=== PATIENT | female | born 1955 | race Caucasian/White ===

== ENCOUNTER 2018-11-30 14:26 | Inpatient (IN) | payer OTHER, SELFPAY ==
[2018-11-30] MEDS ORDERED: NA CHLORIDE 0.9% 0 ML ONE (17:10)
[2018-11-30] MEDS ORDERED: ONDANSETRON 4 MG/2 ML VIAL ONE (17:10)
[2018-11-30 17:27] LABS: Absolute Lymphocytes (CBC) 1.6 K/uL (0.7-4.9); Basophils % 0.9 % (0-1.3); Eosinophils % 0.1 % (0-4.4); Hematocrit 37.6 % (36.0-45.0); Lymphocytes % 9.3 % (15.3-44.8); MPV 9.4 fL (7.6-11.3); Monocytes % 1.8 % (3.3-12.3); RBC Red Blood Cell Count 4.09 M/uL (3.86-4.86)
[2018-11-30 18:00] LABS: Albumin 3.6 g/dL (3.4-5.0); Bilirubin Direct 0.1 mg/dL (0-0.2); Bilirubin Total 0.3 mg/dL (0.2-1.0); Protein, Total 7.8 g/dL (6.4-8.2)
[2018-11-30 18:04] LABS: Potassium 6.8 mmol/L (3.5-5.1)
--- NOTE | 2018-11-30 18:28 | EDPHYS ---
Physician Documentation [facility] Name: Tawana Wells Age: 63 yrs Sex: Female : 1955 Arrival Date: 11/30/2018 Time: 14:28 Bed 23 Private MD: ED Physician Edgar Andrew HPI: 11/30 18:18 This 63 yrs old Female presents to ER via Ambulatory with complaints of gs Vomiting, Fall Injury. 18:18 The patient presents to the emergency department with nausea, vomiting. gs 18:18 Onset: The symptoms/episode began/occurred today. Possible causes: unknown. Associated gs signs and symptoms: Pertinent positives: abdominal pain, syncope. Severity of symptoms: At their worst the symptoms were incapacitating in the emergency department the symptoms are unchanged. The patient has experienced similar episodes in the past, a few times. The patient has not recently seen a physician. Historical: - Allergies: 14:32 No Known Allergies; hj - PMHx: 14:32 Hypertension; Diabetes - NIDDM; Hyperlipidemia; hj - PSHx: 14:32 lumbar fusion; shoulder; hj - Immunization history:: Adult Immunizations up to date, Flu vaccine is not up to date. - Social history:: The patient lives at home, Smoking status: Patient/guardian denies using tobacco. - Ebola Screening: : Patient negative for fever greater than or equal to 101.5 degrees Fahrenheit, and additional compatible Ebola Virus Disease symptoms Patient denies exposure to infectious person Patient denies travel to an Ebola-affected area in the 21 days before illness onset No symptoms or risks identified at this time. ROS: 18:18 All other systems are negative. gs Exam: 18:23 Head/Face: Normocephalic, atraumatic. Eyes: Pupils equal round and reactive to light, gs extra-ocular motions intact. Lids and lashes normal. Conjunctiva and sclera are non-icteric and not injected. Cornea within normal limits. Periorbital areas with no swelling, redness, or edema. ENT: Nares patent. No nasal discharge, no septal abnormalities noted. Tympanic membranes are normal and external auditory canals are clear. Oropharynx with no redness, swelling, or masses, exudates, or evidence of obstruction, uvula midline. Mucous membranes moist. Neck: Trachea midline, no thyromegaly or masses palpated, and no cervical lymphadenopathy. Supple, full range of motion without nuchal rigidity, or vertebral point tenderness. No Meningismus. Chest/axilla: Normal chest wall appearance and motion. Nontender with no deformity. No lesions are appreciated. 18:23 Respiratory: Lungs have equal breath sounds bilaterally, clear to auscultation and percussion. No rales, rhonchi or wheezes noted. No increased work of breathing, no retractions or nasal flaring. Back: No spinal tenderness. No costovertebral tenderness. Full range of motion. Skin: Warm, dry with normal turgor. Normal color with no rashes, no lesions, and no evidence of cellulitis. MS/ Extremity: Pulses equal, no cyanosis. Neurovascular intact. Full, normal range of motion. Neuro: Awake and alert, GCS 15, oriented to person, place, time, and situation. Cranial nerves II-XII grossly intact. Motor strength 5/5 in all extremities. Sensory grossly intact. Cerebellar exam normal. Normal gait. 18:23 Constitutional: The patient appears alert, awake, uncomfortable. 18:23 Cardiovascular: Rate: tachycardic, Rhythm: regular, Pulses: no pulse deficits are appreciated. 18:23 ECG was reviewed by the Attending Physician. 18:23 Abdomen/GI: Palpation: moderate abdominal tenderness, in all quadrants. Vital Signs: 14:32 BP 144 / 77; Pulse 99; Resp 18; Temp 97.8(O); Pulse Ox 99% on R/A; Weight 87.09 kg; hj Height 5 ft. 9 in. (175.26 cm); Pain 10/10; 15:38 BP 156 / 80; Pulse 90; Resp 19; Pulse Ox 100% on R/A; ca1 16:30 BP 122 / 49; Pulse 94; Resp 20; Temp 98(O); Pulse Ox 99% on R/A; ca1 17:30 BP 156 / 68; Pulse 95; Resp 21 S; Temp 98.1(O); Pulse Ox 100% on R/A; ca1 18:33 BP 129 / 59; Pulse 98; Resp 21 S; Temp 98.1(O); Pulse Ox 99% on R/A; ca1 19:30 BP 129 / 57; Pulse 99; Resp 21 S; Temp 98(O); Pulse Ox 96% on R/A; ca1 19:55 BP 137 / 54; Pulse 97; Resp 21 S; Temp 98(O); Pulse Ox 97% on R/A; ca1 20:45 BP 124 / 58; Pulse 95; Resp 20 S; Pulse Ox 99% on R/A; ca1 21:45 BP 145 / 60; Pulse 92; Resp 25 S; Pulse Ox 98% on R/A; ca1 22:15 BP 146 / 100; Pulse 97; Resp 28; Pulse Ox 99% on R/A; ca1 22:45 BP 156 / 64; Pulse 98; Resp 28 S; Pulse Ox 100% on Non-rebreather mask; ca1 23:25 BP 118 / 66; Pulse 98; Resp 23; Pulse Ox 96% on 2 lpm NC; ca1 23:45 BP 97 / 52; Pulse 102; Resp 25 S; Pulse Ox 96% on 2 lpm NC; ca1 12/01 00:05 BP 83 / 83; Pulse 101; Resp 25 S; Pulse Ox 96% on 2 lpm NC; ca1 00:33 BP 114 / 56; Pulse 105; Resp 24 S; Temp 98.2(O); Pulse Ox 95% on 2 lpm NC; ca1 11/30 14:32 Body Mass Index 28.35 (87.09 kg, 175.26 cm) hj MDM: 11/30 16:12 Patient medically screened. 18:23 Differential diagnosis: gastritis, viral gastroenteritis, gastroenteritis, dehydration. gs Data reviewed: vital signs, nurses notes. Counseling: I had a detailed discussion with the patient and/or guardian regarding: the historical points, exam findings, and any diagnostic results supporting the discharge/admit diagnosis, the need for further work-up and treatment in the hospital. Response to treatment: the patient's symptoms have mildly improved after treatment, and as a result, I will admit patient. 18:37 Physician consultation: noraphilip wants hco3 drip admit to icu repeat labs possible gs dialysis. 11/30 16:44 Order name: Basic Metabolic Panel 11/30 16:44 Order name: CBC with Diff 11/30 16:44 Order name: Hepatic Function 11/30 16:44 Order name: Lipase 11/30 16:44 Order name: Urine Microscopic Only 11/30 17:36 Order name: CBC with Automated Diff; Complete Time: 20:55 EDMS 11/30 18:04 Order name: Basic Metabolic Panel; Complete Time: 18:07 EDVT 11/30 18:04 Order name: Liver (Hepatic) Function; Complete Time: 18:07 EDVT 11/30 18:04 Order name: Lipase; Complete Time: 18:07 EDVT 11/30 18:17 Order name: ABG 11/30 19:21 Order name: Urine Dipstick--Ancillary (enter results) co 11/30 19:36 Order name: CBC Smear Scan; Complete Time: 20:55 EDVT 11/30 20:49 Order name: Urine Microscopic Only; Complete Time: 20:55 EDVT 11/30 21:24 Order name: Chem 7 monalisa 11/30 14:55 Order name: CT Head C Spine [facility] 11/30 14:55 Order name: CT Abd/Pelvis - Without Cont (PO Contrast Only) [facility] 11/30 19:48 Order name: CT; Complete Time: 20:55 EDVT 11/30 19:55 Order name: CT; Complete Time: 20:55 [facility] 11/30 19:59 Order name: US; Complete Time: 20:55 EDVT 11/30 21:56 Order name: Chest Single View XRAY rr5 11/30 21:56 Order name: BMP rr5 11/30 23:01 Order name: Basic Metabolic Panel [facility] 11/30 16:44 Order name: IV Saline Lock; Complete Time: 17:13 11/30 16:44 Order name: Labs collected and sent; Complete Time: 17:13 11/30 16:44 Order name: Urine Dipstick-Ancillary (obtain specimen); Complete Time: 20:20 11/30 18:08 Order name: EKG; Complete Time: 05:00 11/30 18:08 Order name: EKG - Nurse/Tech; Complete Time: 18:23 11/30 18:31 Order name: Flores; Complete Time: 19:04 EC:23 Rate is 94 beats/min. Rhythm is regular. MS interval is normal. QRS interval is normal. gs QT interval is normal. T waves are Peaked. Clinical impression: Abnormal EKG without significant change. Interpreted by me. Administered Medications: 17:04 Drug: Zofran 4 mg Route: IVP; Site: right antecubital; ca1 18:15 Follow up: Response: No adverse reaction ca1 17:04 Drug: NS 0.9% 1000 ml Route: IV; Rate: 1 bolus; Site: right antecubital; ca1 18:15 Follow up: Response: No adverse reaction; IV Status: Completed infusion ca1 18:30 Drug: Albuterol 2.5 mg Route: Inhalation; ca1 18:40 Drug: D50W 50 ml Route: IVP; Site: right antecubital; ca1 19:50 Follow up: Response: No adverse reaction ca1 18:48 Drug: Insulin Regular Human 10 units {Co-Signature: sg (Nba Fiore RN).} Route: IVP; ca1 Site: right antecubital; 18:50 Follow up: Response: No adverse reaction ca1 18:50 Drug: D5W 1000 ml, Sodium Bicarbonate 150 mEq Route: IV; Rate: 150 ml/hr; Site: right ca1 antecubital; 19:08 Drug: Kayexalate 30 grams Route: PO; ca1 04 00:10 Follow up: Response: No adverse reaction ca1 11/30 22:30 Drug: Rocephin - (cefTRIAXone) 1 grams Route: IVPB; Infused Over: 30 mins; Site: right ca1 antecubital; 22:31 Follow up: IV Status: IVP per pharmacy protocol ca1 22:40 Drug: Kayexalate 30 grams Route: PO; ca1 04 00:10 Follow up: Response: No adverse reaction ca1 11/30 23:04 Drug: Flagyl 500 mg Volume: 100 ml; Route: IVPB; Rate: 200 ml/hr; Infused Over: 30 ca1 mins; Site: left forearm; 23:36 Follow up: IV Status: Completed infusion ca1 23:30 Drug: D50W 50 ml Route: IVP; Site: right antecubital; ca1 04 01:20 Follow up: Response: No adverse reaction ca1 11/30 23:31 Drug: Insulin Regular Human 6 units {Co-Signature: bb (Thelma Figueroa RN).} Route: IVP; ca1 Site: right antecubital; 12/01 00:15 Follow up: Response: No adverse reaction ca1 11/30 23:36 Drug: Calcium Gluconate 1 grams Route: IVPB; Infused Over: 30 mins; Site: left forearm; ca1 23:42 Drug: Sodium Bicarbonate 50 mEq Route: IVP; Site: right antecubital; ca1 06/04 00:25 Follow up: Response: No adverse reaction ca1 00:15 Drug: Calcium Chloride 1 grams Route: IVP; Site: left forearm; ca1 00:20 Follow up: Response: No adverse reaction ca1 01:15 CANCELLED (Duplicate Order): Insulin Regular Human 5 units IVP once ca1 01:15 CANCELLED (Duplicate Order): Sodium Bicarbonate 1 amp IVP once; (50 mL); equals 50 mEq ca1 01:16 CANCELLED (Duplicate Order): D50W 50 ml IVP once; (1 amp) ca1 01:16 CANCELLED (Duplicate Order): Calcium Chloride 1 grams IVP once ca1 Disposition: 11/30/18 18:27 Hospitalization ordered by Shameka Richmond for Inpatient Admission. Preliminary diagnosis are Acute kidney failure, Elevated white blood cell count, Abdominal tenderness, Diverticular disease of intestine, Diverticulitis of large intestine without perforation or abscess without bleeding. - Bed requested for Intensive Care Unit. - Status is Inpatient Admission. mg2 - Condition is Stable. - Problem is new. - Symptoms have improved. UTI on Admission? No Critical care time excluding procedures: 11/30 18:23 Critical care time: Bedside Care: 10 minutes, Consultation: 10 minutes, Family gs Intervention: 10 minutes. Total time: 30 minutes Signatures: Dispatcher [employer] EDMS Lalo Contreras MD MD cha Joaquin, Henry, RN SATISH Clara Morrissey RN RN Edgar Andrew MD MD Ralph Parks RN RN mg2 Whit Covington RN RN ca1 Nba Fiore RN sg Thelma Figureoa RN bb Corrections: (The following items were deleted from the chart) 18:33 18:27 Hospitalization Ordered by Shameka Richmond MD for Inpatient Admission. Preliminary gs diagnosis is Acute kidney failure. Bed requested for Telemetry/MedSurg (Inpatient). Status is Inpatient Admission. Condition is Stable. Problem is new. Symptoms have improved. UTI on Admission? No. gs 19:59 18:33 11/30/2018 18:27 Hospitalization Ordered by Shameka Richmond MD for Inpatient cg Admission. Preliminary diagnosis is Acute kidney failure. Bed requested for Intensive Care Unit. Status is Inpatient Admission. Condition is Stable. Problem is new. Symptoms have improved. UTI on Admission? No. gs 20:58 19:59 11/30/2018 18:27 Hospitalization Ordered by Shameka Richmond MD for Inpatient monalisa Admission. Preliminary diagnosis is Acute kidney failure. Bed requested for Intensive Care Unit. Status is Inpatient Admission. Condition is Stable. Problem is new. Symptoms have improved. UTI on Admission? No. cg 12/01 01:13 11/30 20:58 11/30/2018 18:27 Hospitalization Ordered by Shameka Richmond MD for Inpatient mg2 Admission. Preliminary diagnosis is Acute kidney failure; Elevated white blood cell count; Abdominal tenderness; Diverticular disease of intestine; Diverticulitis of large intestine without perforation or abscess without bleeding. Bed requested for Intensive Care Unit. Status is Inpatient Admission. Condition is Stable. Problem is new. Symptoms have improved. UTI on Admission? No. monalisa
--- NOTE | 2018-11-30 18:28 | ER ---
Nurse's Notes [facility] [place] Name: Tawana Wells Age: 63 yrs Sex: Female : 1955 Arrival Date: 11/30/2018 Time: 14:28 Bed 23 Private MD: Diagnosis: Acute kidney failure;Elevated white blood cell count;Abdominal tenderness;Diverticular disease of intestine;Diverticulitis of large intestine without perforation or abscess without bleeding Presentation: 11/30 14:29 Presenting complaint: Patient states: i started vomiting today and started having abd hj pain on my L lower abd, on my way to the bathroom i fell and hurt the L side of my face and passed out, 2x; denies fever; denies taking blood thinners;. Transition of care: patient was not received from another setting of care. Onset of symptoms was November 30, 2018. Risk Assessment: Do you want to hurt yourself or someone else? Patient reports no desire to harm self or others. Initial Sepsis Screen: Does the patient meet any 2 criteria? No. Patient's initial sepsis screen is negative. Does the patient have a suspected source of infection? No. Patient's initial sepsis screen is negative. Care prior to arrival: None. 14:29 Method Of Arrival: Ambulatory 14:29 Acuity: RAYMOND 3 hj Historical: - Allergies: 14:32 No Known Allergies; hj - PMHx: 14:32 Hypertension; Diabetes - NIDDM; Hyperlipidemia; hj - PSHx: 14:32 lumbar fusion; shoulder; hj - Immunization history:: Adult Immunizations up to date, Flu vaccine is not up to date. - Social history:: The patient lives at home, Smoking status: Patient/guardian denies using tobacco. - Ebola Screening: : Patient negative for fever greater than or equal to 101.5 degrees Fahrenheit, and additional compatible Ebola Virus Disease symptoms Patient denies exposure to infectious person Patient denies travel to an Ebola-affected area in the 21 days before illness onset No symptoms or risks identified at this time. Screenin:40 Abuse screen: Denies threats or abuse. Denies injuries from another. Nutritional ca1 screening: No deficits noted. Tuberculosis screening: No symptoms or risk factors identified. Fall Risk None identified. Assessment: 15:40 General: Appears in no apparent distress. uncomfortable, ill, Behavior is calm, ca1 cooperative, appropriate for age. Pain: Complains of pain in face Pain does not radiate. Pain currently is 6 out of 10 on a pain scale. Pain began 1 day ago. Neuro: Level of Consciousness is awake, alert, obeys commands, Oriented to person, place, time, situation, News Library Director are equal bilaterally Moves all extremities. Speech is normal, Facial symmetry appears normal. Cardiovascular: Heart tones S1 S2 present Capillary refill < 3 seconds Patient's skin is warm and dry. Respiratory: Airway is patent Respiratory effort is even, unlabored, Respiratory pattern is regular, symmetrical, Breath sounds are clear bilaterally. GI: Abdomen is round non-distended, Pt is actively vomiting undigested food, Bowel sounds present X 4 quads. Abd is soft and non tender X 4 quads. Reports vomiting, since yesterday. 15:40 : No deficits noted. No signs and/or symptoms were reported regarding the ca1 genitourinary system. EENT: No deficits noted. No signs and/or symptoms were reported regarding the EENT system. Derm: Skin is intact, is healthy with good turgor, Skin is diaphoretic, Skin is pink, warm \T\ dry. Musculoskeletal: Circulation, motion, and sensation intact. Capillary refill < 3 seconds, Range of motion: intact in all extremities. 16:39 Reassessment: Patient appears in no apparent distress at this time. Patient and/or ca1 family updated on plan of care and expected duration. Pain level reassessed. Patient is alert, oriented x 3, equal unlabored respirations, skin warm/dry/pink. 17:28 Reassessment: Patient appears in no apparent distress at this time. Patient and/or ca1 family updated on plan of care and expected duration. Pain level reassessed. Patient is alert, oriented x 3, equal unlabored respirations, skin warm/dry/pink. 18:31 Reassessment: Patient appears in no apparent distress at this time. Patient is alert, ca1 oriented x 3, equal unlabored respirations, skin warm/dry/pink. 19:29 Reassessment: Patient appears in no apparent distress at this time. Patient and/or ca1 family updated on plan of care and expected duration. Pain level reassessed. Patient is alert, oriented x 3, equal unlabored respirations, skin warm/dry/pink. 20:31 Reassessment: Patient appears in no apparent distress at this time. Patient is alert, ca1 oriented x 3, equal unlabored respirations, skin warm/dry/pink. For Central Line Insertion. 21:28 Reassessment: Patient appears in no apparent distress at this time. Patient is alert, ca1 oriented x 3, equal unlabored respirations, skin warm/dry/pink. 22:46 Reassessment: Patient appears in no apparent distress at this time. Patient is alert, ca1 oriented x 3, equal unlabored respirations, skin warm/dry/pink. 23:01 Reassessment: [place] of laboratory called for critical laboratory CO2-7, K 7.1, rr5 creatinine 11.6. provider aware. 23:25 Reassessment: Called Dr. Lorenzo for Critical Labs. VO D50W and 6 units insulin. 1 amp ca1 Bicarbonate and 1 amp Ca Gluconate. Reassessment: Patient appears in no apparent distress at this time. Patient is alert, oriented x 3, equal unlabored respirations, skin warm/dry/pink. 23:42 Reassessment: RT for ABG at bedside. Spoke to Dr. Lorenzo to clarify previous VO. Informed ca1 Dr. Lorenzo that I just started Ca Gluconate per Dr. Contreras's orders in [facility]. He said to just give Na Bicarb 1 amp. 12/01 00:10 Reassessment: Informed Dr. Lorenzo that Bp dropped 83/53. VO of Ca Chloride 1gm and ca1 Levophed Drip. 00:10 Reassessment: Patient appears in no apparent distress at this time. Patient is alert, ca1 oriented x 3, equal unlabored respirations, skin warm/dry/pink. 00:15 Reassessment: Patient appears in no apparent distress at this time. Called report to [facility] Brooke Melton RN. Informed her abour Joelle and meds given. Asked . Brooke if they can start Levophed Drip at ICU. Lates BP 114/54. She said Yes. Vital Signs: 11/30 14:32 BP 144 / 77; Pulse 99; Resp 18; Temp 97.8(O); Pulse Ox 99% on R/A; Weight 87.09 kg; hj Height 5 ft. 9 in. (175.26 cm); Pain 10/10; 15:38 BP 156 / 80; Pulse 90; Resp 19; Pulse Ox 100% on R/A; ca1 16:30 BP 122 / 49; Pulse 94; Resp 20; Temp 98(O); Pulse Ox 99% on R/A; ca1 17:30 BP 156 / 68; Pulse 95; Resp 21 S; Temp 98.1(O); Pulse Ox 100% on R/A; ca1 18:33 BP 129 / 59; Pulse 98; Resp 21 S; Temp 98.1(O); Pulse Ox 99% on R/A; ca1 19:30 BP 129 / 57; Pulse 99; Resp 21 S; Temp 98(O); Pulse Ox 96% on R/A; ca1 19:55 BP 137 / 54; Pulse 97; Resp 21 S; Temp 98(O); Pulse Ox 97% on R/A; ca1 20:45 BP 124 / 58; Pulse 95; Resp 20 S; Pulse Ox 99% on R/A; ca1 21:45 BP 145 / 60; Pulse 92; Resp 25 S; Pulse Ox 98% on R/A; ca1 22:15 BP 146 / 100; Pulse 97; Resp 28; Pulse Ox 99% on R/A; ca1 22:45 BP 156 / 64; Pulse 98; Resp 28 S; Pulse Ox 100% on Non-rebreather mask; ca1 23:25 BP 118 / 66; Pulse 98; Resp 23; Pulse Ox 96% on 2 lpm NC; ca1 23:45 BP 97 / 52; Pulse 102; Resp 25 S; Pulse Ox 96% on 2 lpm NC; ca1 12/01 00:05 BP 83 / 83; Pulse 101; Resp 25 S; Pulse Ox 96% on 2 lpm NC; ca1 00:33 BP 114 / 56; Pulse 105; Resp 24 S; Temp 98.2(O); Pulse Ox 95% on 2 lpm NC; ca1 11/30 14:32 Body Mass Index 28.35 (87.09 kg, 175.26 cm) ED Course: 11/30 14:28 Patient arrived in ED. hj 14:31 Triage completed. hj 14:32 Arm band placed on right wrist. hj 15:40 Patient has correct armband on for positive identification. Placed in gown. Bed in low ca1 position. Call light in reach. Side rails up X2. emd special education teacher on. Pulse ox on. NIBP on. Warm blanket given. 15:45 Edgar Andrew MD is Attending Physician. gs 15:49 Whit Covington RN is Primary Nurse. ca1 17:04 No provider procedures requiring assistance completed. Inserted saline lock: 20 gauge ca1 in right antecubital area, using aseptic technique. Blood collected. 18:26 Shameka Richmond MD is Hospitalizing Provider. gs 19:09 Flores cath inserted, using sterile technique, 18 Fr., by hi, balloon inflated, to ca1 gravity drainage, clamped. urine specimen collected. returned clear yellow urine. Patient tolerated well. 19:49 Ultrasound completed. hr 22:00 Missed attempt(s): 20 gauge in left antecubital area. Bleeding controlled, band aid ca1 applied, catheter tip intact. 22:15 Assisted provider with central line placement. Set up central line tray. Double lumen ca1 lined placed in left subclavian. Line placed by Esau Kohli MD Placement verified by CXR, blood return, Dressed with 4X4s, Tegaderm, Blood was collected. Patient tolerated well. Before procedure, did Practitioner(s) obtain informed consent? Yes. Patient \T\ family education about procedure, CLABSI prevention and S/S of infection? Yes. Time-out/Briefing performed prior to start of procedure? Yes. Was handwashing/sanitizing done immediately prior to procedure? Yes. Was patient positioned to in a way to prevent air embolism? Yes. Was procedure site sterilized? Yes, with chlorhexidine. Was the site allowed to dry? Yes. Was local anesthetic and/or sedation utilized? Yes. During the procedure, did the Practitioner(s) maintain a sterile field? Yes. Were unused ports clamped during insertion? Yes. Was a 2nd qualified MD obtained after 3 unsuccessful insertion attempts? No. Was blood aspirated from each lumen? Yes. After the procedure, did the Practitioner(s) clean the site and apply a sterile dressing? Yes. 23:16 Inserted saline lock: 22 gauge in left hand, using aseptic technique. mg2 12/01 00:15 Patient admitted, IV remains in place. ca1 Administered Medications: 11/30 17:04 Drug: Zofran 4 mg Route: IVP; Site: right antecubital; ca1 18:15 Follow up: Response: No adverse reaction ca1 17:04 Drug: NS 0.9% 1000 ml Route: IV; Rate: 1 bolus; Site: right antecubital; ca1 18:15 Follow up: Response: No adverse reaction; IV Status: Completed infusion ca1 18:30 Drug: Albuterol 2.5 mg Route: Inhalation; ca1 18:40 Drug: D50W 50 ml Route: IVP; Site: right antecubital; ca1 19:50 Follow up: Response: No adverse reaction ca1 18:48 Drug: Insulin Regular Human 10 units {Co-Signature: sg (Nba Fiore RN).} Route: IVP; ca1 Site: right antecubital; 18:50 Follow up: Response: No adverse reaction ca1 18:50 Drug: D5W 1000 ml, Sodium Bicarbonate 150 mEq Route: IV; Rate: 150 ml/hr; Site: right ca1 antecubital; 19:08 Drug: Kayexalate 30 grams Route: PO; ca1 04 00:10 Follow up: Response: No adverse reaction ca1 03 22:30 Drug: Rocephin - (cefTRIAXone) 1 grams Route: IVPB; Infused Over: 30 mins; Site: right ca1 antecubital; 22:31 Follow up: IV Status: IVP per pharmacy protocol ca1 22:40 Drug: Kayexalate 30 grams Route: PO; ca1 04 00:10 Follow up: Response: No adverse reaction ca1 11/30 23:04 Drug: Flagyl 500 mg Volume: 100 ml; Route: IVPB; Rate: 200 ml/hr; Infused Over: 30 ca1 mins; Site: left forearm; 23:36 Follow up: IV Status: Completed infusion ca1 23:30 Drug: D50W 50 ml Route: IVP; Site: right antecubital; ca1 04 01:20 Follow up: Response: No adverse reaction ca1 11/30 23:31 Drug: Insulin Regular Human 6 units {Co-Signature: bb (Thelma Figueroa RN).} Route: IVP; ca1 Site: right antecubital; 12/01 00:15 Follow up: Response: No adverse reaction ca1 11/30 23:36 Drug: Calcium Gluconate 1 grams Route: IVPB; Infused Over: 30 mins; Site: left forearm; ca1 23:42 Drug: Sodium Bicarbonate 50 mEq Route: IVP; Site: right antecubital; ca1 12/01 00:25 Follow up: Response: No adverse reaction ca1 00:15 Drug: Calcium Chloride 1 grams Route: IVP; Site: left forearm; ca1 00:20 Follow up: Response: No adverse reaction ca1 01:15 CANCELLED (Duplicate Order): Insulin Regular Human 5 units IVP once ca1 01:15 CANCELLED (Duplicate Order): Sodium Bicarbonate 1 amp IVP once; (50 mL); equals 50 mEq ca1 01:16 CANCELLED (Duplicate Order): D50W 50 ml IVP once; (1 amp) ca1 01:16 CANCELLED (Duplicate Order): Calcium Chloride 1 grams IVP once ca1 Outcome: 11/30 18:27 Decision to Hospitalize by Provider. 12/01 00:15 Admitted to ICU accompanied by nurse, accompanied by tech, via stretcher, room 7, with ca1 oxygen, on monitor, with chart, Report called to Brooke Melton RN 00:15 Condition: stable ca1 00:15 Instructed on the need for admit. ca1 01:13 Patient left the ED. mg2 Signatures: Belgica Reyes Henry, RN RN Edgar Andrew MD MD Ralph Parks RN RN mg2 Farshad Gonzalez, SATISH RN rr5 Whit Covington RN RN ca1 Nba Fiore RN sg Thelma Figueroa RN bb Corrections: (The following items were deleted from the chart) 06 14:34 14:32 87.09 kg; Height 5 ft. 9 in.; BMI: 28.3; Pain 10/10; hj hj 14:34 14:32 Pulse 99bpm; Resp 18bpm; Pulse Ox 99% RA; Temp 97.8F Oral; 87.09 kg; Height 5 ft. hj 9 in.; BMI: 28.3; Pain 10/10; hj 14:35 14:29 Presenting complaint: Patient states: i started vomiting today and started having hj abd pain on my L lower abd, on my way to the bathroom i fell and hurt the L side of my face and passed out, 2x; denies fever; hj 23:02 23:01 Reassessment: rr5 rr5 23:35 23:21 Reassessment: Xray done. ca1 ca1 12/01 01:04 01:04 Patient admitted, IV remains in place. ca1 ca1
[2018-11-30] MEDS ORDERED: CALCIUM GLUC 10% INJ 9.3 MEQ in NA CHLORIDE 0.9% 100 ML IV ONE (18:42)
[2018-11-30] MEDS ORDERED: FUROSEMIDE 20 MG/ 2ML VIAL IV ONE (18:42)
[2018-11-30] MEDS ORDERED: ALBUTEROL 2.5 MG/3 ML NEB SOL NEB ONE (18:46)
[2018-11-30] MEDS ORDERED: ALBUTEROL 2.5 MG/3 ML NEB SOL ONE (18:50)
[2018-11-30] MEDS ORDERED: D50W 25 GM/50 ML SYRINGE IV ONE ×2 (18:52→23:43)
[2018-11-30] MEDS ORDERED: INSULIN -REGULAR HUMAN 50 UNIT/0.5 ML ML ONE ×2 (18:52→23:43)
[2018-11-30] MEDS: D5W 1,000 ML with NA BICARB 8.4% 150 MEQ IV SCH ×2 (19:00)
[2018-11-30] MEDS ORDERED: NA CHLORIDE 0.9% 1,000 ML IV SCH (19:00)
[2018-11-30] MEDS ORDERED: SOD POLYSTYREN SUL 15 GM/60 ML UCUP ONE ×2 (19:21→22:24)
[2018-11-30 19:35] LABS: Blood Morphology Comment NOT SEEN (NOT SEEN); Platelet Estimate ADEQ; Urine White Blood Cell Casts OK
--- NOTE | 2018-11-30 19:44 | RAD REPORT ---
EXAM DESCRIPTION: CT - Abdomen Pelvis Wo Contrast - 11/30/2018 7:21 pm CLINICAL HISTORY: Abdominal pain with vomiting for several months COMPARISON: None TECHNIQUE: Computed axial tomography of the abdomen and pelvis was obtained. IV was not requested. O ral contrast was given. Coronal reconstructions performed. All CT scans are performed using dose optimization technique as appropriate and may include automated exposure control or mA/KV adjustment according to patient size. FINDINGS: The evaluation of solid organs and vessels is limited secondary to the lack of contrast a dministration. Fatty liver. Mild hepatomegaly Postsurgical changes involve the spine. Flores catheter within the bladder The Spleen, pancreas, adrenals and kidneys appear grossly normal. The appendix is normal. Diverticula stem from the colon. Minimal stranding adjacent to the sigmoid co gato 4 centimeter soft tissue structure posterior lower right pelvis. IMPRESSION: Minimal sigmoid diverticulitis 4 centimeter soft tissue structure posterior lower right pelvis of uncertain etiology. Pelvic ultraso und is recommended
--- NOTE | 2018-11-30 19:51 | RAD REPORT ---
EXAM DESCRIPTION: CT - Head C Spine Mpr Wo Con - 11/30/2018 7:21 pm CLINICAL HISTORY: Head and neck injury status post fall. Head and neck pain COMPARISON: None. TECHNIQUE: Computed axial tomography of the head and cervical spine was obtained. Sagittal and coronal reconstruction was performed. All CT scans are performed using dose optimization technique as appropriate and may include automated exposure control or mA/KV adjustment according to patient size. FINDINGS: An intracranial bleed is not seen. The ventricles are normal in caliber. An extra-axial fl uid collection is not noted.Fluid within the visualized sinuses and mastoids is not seen A cervical fracture is not visualized. No dislocation is noted. IMPRESSION: No acute intracranial abnormality is seen. A cervical fracture is not visualized. If the patient continues to have symptoms to suggest intracra nial /spinal cord pathology then MRI would be recommended
--- NOTE | 2018-11-30 19:57 | RAD REPORT ---
EXAM DESCRIPTION: US - Renal Ultrasound-Complete - 11/30/2018 7:42 pm CLINICAL HISTORY: . Abdominal pain FINDINGS: The right kidney measures 11 cm with mildly increased echotexture. The left kidney measures 10 cm with a mildly increased echotexture. 2 centimeter isoechoic structure present Hydronephrosis is not seen. Bladder poorly visualized sessile Flores catheter is in place IMPRESSION: Mildly increased renal echotexture may indicate parenchymal disease 2 centimeter isoechoic structure within the left kidney probably representing a lobulation rath er than a mass. As a precaution it is recommended that the patient have a followup ultrasound in 3 mo nths to assess stability.
[2018-11-30 20:47] LABS: Urine Amorphous Sediment 1+ /HPF (NONE SEEN); Urine Bacteria <20 /HPF (<20); Urine Culture Reflex Order NOT NEEDED; Urine Mucus 1+ /HPF (NONE SEEN)
[2018-11-30] MEDS ORDERED: CEFTRIAXONE/SWI 1gm 1 GM/10 ML SYR ONE (21:27)
[2018-11-30] MEDS ORDERED: METRONIDAZOLE 500mg IVPB 500 MG/100 ML BAG IV ONE (21:27)
[2018-11-30] MEDS ORDERED: LIDOCAINE 1% MPF 5 ML VIAL ONE (21:46)
[2018-11-30] MEDS ORDERED: NA CHLORIDE 0.9% 1,000 ML ONE (21:49)
[2018-11-30] MEDS ORDERED: CALCIUM GLUCONATE 1 GM IVPB 1 GM/50 ML BAG IV ONE ×2 (22:33→23:20)
[2018-11-30 22:59] LABS: Potassium 7.1 mmol/L (3.5-5.1)
[2018-12-01] MEDS ORDERED: NOREPINEPHRINE 4mg/D5W 250mL 4 MG/250 ML BAG IV ONE (00:18)
[2018-12-01] MEDS ORDERED: Caclcium Chloride 10% INJ SYR IV ONE (00:20)
[2018-12-01] MEDS ORDERED: MANNITOL 25% 12.5 GM/50 ML VIAL IV PRN (01:27)
[2018-12-01] MEDS ORDERED: INSULIN -REGULAR HUMAN 50 UNIT/0.5 ML ML IV ONE (01:36)
[2018-12-01] MEDS ORDERED: D50W 25 GM/50 ML SYRINGE IV PRN (01:36)
[2018-12-01] MEDS: INSULIN -REGULAR HUMAN 50 UNIT/0.5 ML ML SQ SCH ×5 (01:36→21:14)
[2018-12-01] MEDS ORDERED: GLUCAGON 1 MG/VIAL IM PRN (01:36)
[2018-12-01] MEDS ORDERED: D50W 25 GM/50 ML SYRINGE IV ONE (01:36)
[2018-12-01] MEDS ORDERED: CALCIUM GLUC 10% INJ 4.65 MEQ in NA CHLORIDE 0.9% 100 ML IV ONE (01:36)
[2018-12-01] MEDS ORDERED: ALBUMIN HUMAN 25% 50 ML IV SCH (02:00)
[2018-12-01] MEDS: NA CHLORIDE 0.9% 1,000 ML IV PRN ×2 (02:44→17:32)
[2018-12-01] MEDS: D5W 1,000 ML with NA BICARB 8.4% 150 MEQ IV SCH ×8 (04:16→18:00)
[2018-12-01 05:34] LABS: Urine Blood 1+ (NEG); Urine Glucose TRACE (NEG); Urine Protein 2+ (NEG); Urine Specific Gravity 1.015 (1.005-1.030); Urine pH 5.5 (5.0-7.0)
[2018-12-01 05:45] LABS: Blood Gas Oxyhemoglobin 90.2 % (94-97); Blood O2 Saturation 91.5 % (92-98.5)
[2018-12-01 05:46] LABS: Arterial Blood Carboxyhemoglob 0.4 % (0-1.5)
[2018-12-01 05:49] LABS: Bilirubin Total 0.4 mg/dL (0.2-1.0); Potassium 4.7 mmol/L (3.5-5.1); Protein, Total 6.8 g/dL (6.4-8.2)
[2018-12-01 05:53] LABS: Absolute Lymphocytes (CBC) 1.7 K/uL (0.7-4.9); Basophils % 0.1 % (0-1.3); Hematocrit 33.9 % (36.0-45.0); Lymphocytes % 10.7 % (15.3-44.8); MPV 9.1 fL (7.6-11.3); Monocytes % 6.2 % (3.3-12.3)
[2018-12-01] MEDS: HYDROCODONE/APAP 10/325 TAB PO PRN ×2 (06:29→12:40)
[2018-12-01] MEDS ORDERED: Levofloxacin500mg IV 500 MG/100 ML BAG IV ONE (07:00)
--- NOTE | 2018-12-01 07:33 | P.HP ---
Certification for Inpatient Patient admitted to: Inpatient With expected LOS: >2 Midnights Patient will require the following post-hospital care: None Practitioner: I am a practitioner with admitting privileges, knowledge of patient current condition, hospital course, and medical plan of care. Services: Services provided to patient in accordance with Admission requirements found in Title 42 Section 412.3 of the Code of Federal Regulations Patient History Date of Service: 11/30/18 Reason for admission: Acute renal failure/ sigmoid diverticulitis History of Present Illness: Patient is a 63-year-old female who came into the hospital after falling down and having multiple episodes of vomiting. Patient was having generalized weakness and she has been fairly lethargic. After passing out times to decision was made to come into the emergency room. In the emergency room her labs revealed that she had significant renal failure. She states that she does not need and ever know of having any kidney issues. She is severely acidotic and hyperkalemic. She is also severely uremic. Will go ahead and admit her to the hospital into the intensive care unit. She is having episodes of hypotension and bradyarrhythmia- her blood pressure dropped into the 80s/50s and heart rate dropped into the 50s- in the emergency room. With the potassium being so elevated and with her being so acidotic wheel walker much closer in the ICU. At this time we are arranging for hemodialysis catheter placement and will start hemodialysis after this is obtained. She has been given bicarb, D50 with insulin, as well as calcium intravenously. However, the benefits of dialysis outweigh anything we can do medically at this point. We will also need to investigate the etiology of her renal failure and also try to obtain labs from her outpatient setting. Renal Doppler and ultrasound is pending. UA with microscopy is pending as well. Further workup per Nephrology input. Allergies Penicillins Adverse Reaction (Verified 12/01/18 01:03) Hives/Rash Home Medications: Aspirin [Aspirin EC 81 MG] 81 mg PO DAILY 12/01/18 Docosahexanoic AC/Epa [Fish Oil 1,000 MG*] 1 cap PO DAILY 12/01/18 Lisinopril 40 mg PO DAILY 12/01/18 Metformin HCl 1,000 mg PO BID 12/01/18 Multivit with Calcium,Iron,Min [Multiple Vitamins For Women] 1 pill PO DAILY 10/16 hydroCHLOROthiazide [Hydrochlorothiazide*] 12.5 mg PO DAILY 12/01/18 - Past Medical/Surgical History Has patient received pneumonia vaccine in the past: No Diabetic: Yes -: NIDDM -: HTN -: hyperlipidemia -: R shoulder surgery -: lumbar fusion -: hysterectomy - Family History Mother Medical History: Heart disease, Diabetes Father Medical History: Heart disease - Social History Smoking Status: Never smoker Alcohol use: Yes CD- Drugs: No Caffeine use: No Place of Residence: Home Review of Systems 10-point ROS is otherwise unremarkable Physical Examination - Vital Signs Temperature: 97 F Blood Pressure: 122/64 Pulse: 111 Respirations: 27 Pulse Ox (%): 92 - Physical Exam General: Alert, In no apparent distress, Oriented x2, Confused, Other ( Lethargic) HEENT: Atraumatic, PERRLA, Mucous membr. moist/pink, EOMI, Sclerae nonicteric Neck: Supple, 2+ carotid pulse no bruit, No LAD, Without JVD or thyroid abnormality Respiratory: Clear to auscultation bilaterally, Normal air movement Cardiovascular: Regular rate/rhythm, Normal S1 S2, No murmurs Gastrointestinal: Normal bowel sounds, Soft and benign, Non-distended, No tenderness Musculoskeletal: No clubbing, No tenderness, Swelling Integumentary: No rashes Neurological: Normal tone, Sensation intact, Cranial nerves 3-12 intact, Normal affect, Abnormal strength Lymphatics: No axilla or inguinal lymphadenopathy - Studies Laboratory Data (last 24 hrs) 11/30/18 17:04: WBC 16.9 H, Hgb 11.9 L, Hct 37.6, Plt Count 307 11/30/18 17:04: Sodium 135 L, Potassium 6.8 H*, BUN 90 H, Creatinine 11.70 H*, Glucose 133 H, Total Bilirubin 0.3, AST 28, ALT 36, Alkaline Phosphatase 102, Lipase 240 Assessment & Plan - Problems (Diagnosis) (1) Acute kidney injury Current Visit: Yes Status: Acute (2) High anion gap metabolic acidosis Current Visit: Yes Status: Acute (3) Hyperkalemia Current Visit: Yes Status: Acute (4) Hypotension Current Visit: Yes Status: Acute (5) Bradyarrhythmia Current Visit: Yes Status: Acute - Plan Plan: 1. Will start emergent hemodialysis after hemodialysis access catheter obtained 2. Renal ultrasound 3. Nephrology consultation 4. Strict input and output 5. Monitor electrolytes 6. GI and DVT prophylaxis Discharge Plan: Home Plan to discharge in: Greater than 2 days - Advance Directives Does patient have a Living Will: No Does patient have a Durable POA for Healthcare: No - Code Status/Comfort Care Code Status Assessed: Yes Code Status: Full Code Critical Care: No Time Spent Managing PTS Care (In Minutes): 45
--- NOTE | 2018-12-01 08:01 | RAD REPORT ---
EXAM DESCRIPTION: Jayla Single View12/01/2018 5:38 am CLINICAL HISTORY: Chest pain COMPARISON: November 30, 2018 FINDINGS: Central venous line has its tip in the superior vena cava. A pneumothorax is not visualize d. Mild chronic appearing lung opacities. The lungs appear clear of acute infiltrate. The heart is ward l size IMPRESSION: No acute abnormalities displayed
[2018-12-01] MEDS: METRONIDAZOLE 500mg IVPB 500 MG/100 ML BAG IV SCH ×2 (08:56→16:54)
--- NOTE | 2018-12-01 11:38 | EKG ---
Test Date: 2018-11-30 Test Time: 18:21:35 Peanut Sorter: ALIVIA MEASUREMENT RESULTS: Intervals: Rate: 94 KS: 194 QRSD: 96 QT: 392 QTc: 490 [place]: P: 67 KS: 194 QRS: 79 T: 73 INTERPRETIVE STATEMENTS: Normal sinus rhythm Prolonged QT Abnormal ECG No previous ECG available for comparison Electronically Signed On 12-01-18 11:36:00 CDT by Adebayo Darden
[2018-12-01] MEDS: ONDANSETRON 4 MG/2 ML VIAL IV PRN (12:46)
--- NOTE | 2018-12-01 14:13 | P.CNS ---
Date of Consult: 12/08/18 PC: I was asked to see this 63-year-old female regards to the placed in a emergent dialysis catheter due to hypokalemia HPC: Patient apparently was evaluated and found have any abnormally high potassium. She has been sick for the last few days. She is going to require dialysis at least acutely. SOC: No known allergies SYS REVIEW: No cough or wheeze. No history of broken collarbone superior has had some off and on abdominal pain. Denies urinary complaints O/E awake alert but ill-looking lady HEENT: JVD not distended Chest: Clavicles appear normal, air entry equal bilaterally ABD: Saw DATA: Elevated potassium IMPRESSION: This patient requires emergent dialysis and will need a IV access is suitable for hemofiltration PLAN: I have explained the procedure to her and will place a left subclavian. The risks of this procedure have been discussed. The possibility of bleeding, infection, collapsed lung, and need for further surgeries and procedures was outlined. She understands and wants us to proceed.
--- NOTE | 2018-12-01 14:18 | P.OP ---
Date of Service: 12/01/18 Preoperative diagnosis: Acute renal failure Postoperative diagnosis: The same Procedure: Insertion of left subclavian hemodialysis catheter Surgeon's name: Kamilla Findings and operative technique: After explaining the procedure to the patient, a roll was placed between the patient's shoulders on the OR stretcher. The area of the left chest was now prepped with a DuraPrep solution draped in usual aseptic manner. Observing universal precautions, the left subclavicular area was infiltrated with 1% lidocaine. Topical anesthesia having been achieved, a finer needle was passed to find the subclavian vein. We encounter the clavicle on the 1st 2 passes. On the 3rd time we were able to enter the vein. The guidewire would not pass easily. The needle was withdrawn. Another pass was made. This time we were able to get good blood flow from the vein. Once again the guidewire would not pass and appear to be going up into the neck. The guidewire was re-loaded and the needle had been removed from the vein at this point. On the 3rd pass were able to findings cannulate the subclavian vein. Good blood flow was obtained. The guidewire was passed. At this point the patient developed a coughing spell. She dropped her O2 sats to 81. She was put on a rebreather mask. The guidewire having been in position a skin incision was made to allow us to pass a dilator. The hemo catheter was then passed over the Glidewire in a modified Seldinger technique. It was sutured in place and flushed. A chest x-ray is pending as there is some suspicion of a possible left pneumo. At the end of the procedure the patient was stable, her blood pressure remained unchanged throughout the procedure. Air entry appear to be equal bilaterally with no tracheal shift. No increased tympany on the left side. We will observe closely until we have our chest x-ray result.
--- NOTE | 2018-12-01 14:19 | P.PN ---
Date of Service: 11/30/18 Chest x-ray after the procedure confirmed no pneumothorax. Patient is stable for transfer to the floor. Catheter is in good position NAD use for dialysis. We will repeat chest x-ray in the a.m.
--- NOTE | 2018-12-01 14:20 | P.PN ---
Date of Service: 12/01/18 Chest x-ray today appears normal. No evidence of pneumothorax.
--- NOTE | 2018-12-01 16:38 | P.PN ---
Subjective Date of Service: 12/01/18 Chief Complaint: Acute renal failure/ sigmoid diverticulitis Pt seen and examined at bedside with RN. Chart Reviewed. Case DW with Gen surgery and Nephrology. Pt c.o of having Nausea since this AM. No other complains to offer overnight. Feeling better than before. Review of Systems 10-point ROS is otherwise unremarkable Physical Examination - Vital Signs Temperature: 97.3 F Blood Pressure: 119/58 Pulse: 98 Respirations: 27 Pulse Ox (%): 93 - Physical Exam General: Alert, In no apparent distress HEENT: Atraumatic, PERRLA, EOMI Neck: Supple, JVD not distended Respiratory: Clear to auscultation bilaterally, Normal air movement Cardiovascular: Regular rate/rhythm, Normal S1 S2 Gastrointestinal: Normal bowel sounds, No tenderness Musculoskeletal: No tenderness Integumentary: No rashes Neurological: Normal speech, Normal tone, Normal affect Lymphatics: No axilla or inguinal lymphadenopathy - Studies Laboratory Data (last 24 hrs) 11/30/18 17:04: WBC 16.9 H, Hgb 11.9 L, Hct 37.6, Plt Count 307 11/30/18 17:04: Sodium 135 L, Potassium 6.8 H*, BUN 90 H, Creatinine 11.70 H*, Glucose 133 H, Total Bilirubin 0.3, AST 28, ALT 36, Alkaline Phosphatase 102, Lipase 240 11/30/18 16:44: WBC Cancelled, Hgb Cancelled, Hct Cancelled, Plt Count Cancelled 11/30/18 16:44: Sodium Cancelled, Potassium Cancelled, BUN Cancelled, Creatinine Cancelled, Glucose Cancelled, Total Bilirubin Cancelled, AST Cancelled, ALT Cancelled, Alkaline Phosphatase Cancelled, Lipase Cancelled Medications List Reviewed: Yes Assessment And Plan - Current Problems (Diagnosis) (1) Acute kidney injury Current Visit: Yes Status: Acute Plan: ANALY on CKD. pt with No PMHX of CKD per her but unknown as has not followed up with MD. H/o HTN and DM -BUN.CR elevated with Metabolic acidosis and Hyperkalemia -Emergent Dialysis done yesterday by Nephrology and scheduled for one today as well -BUN.CR improved today. -Will f.u post dialysis and Nephrology -IV fluids and Avoid Nephrotoxic agent (2) Hypertension Current Visit: Yes Status: Chronic Plan: Stable -Will restart Home medication Qualifiers: Hypertension type: essential hypertension Qualified Code(s): I10 - Essential (primary) hypertension (3) Diabetes Current Visit: Yes Status: Chronic Plan: ISS and accuchecks Qualifiers: Diabetes mellitus type: type 2 Diabetes mellitus watermelon harvesting supervisor insulin use: without watermelon harvesting supervisor use Diabetes mellitus complication status: with kidney complications Diabetes mellitus complication detail: with chronic kidney disease Chronic kidney disease stage: stage 5, not on chronic dialysis Qualified Code(s): E11.22 - Type 2 diabetes mellitus with diabetic chronic kidney disease; N18.5 - Chronic kidney disease, stage 5 Discharge Plan: Home Plan to discharge in: Greater than 2 days - Code Status/Comfort Care Code Status Assessed: Yes Critical Care: Yes
[2018-12-01 22:15] LABS: Potassium 3.9 mmol/L (3.5-5.1)
[2018-12-02] MEDS: METRONIDAZOLE 500mg IVPB 500 MG/100 ML BAG IV SCH ×3 (00:55→17:36)
--- NOTE | 2018-12-02 03:07 | PN ---
Date of Progress Note: 12/01/2018 Chief Complaint: Acute kidney injury, severe, borderline oliguric associated with severe metabolic acidosis and hyperkalemia. The patient came to the hospital status post fall, generalized weakness, fatigue , was found to have acute kidney injury and renal ultrasound did not show hydronephrosis. The patient will receive IV bicarbonate and bicarbonate drip was started for metabolic acidosis and to treat hyperkalemia. The patient received albuterol inhaler for treatment of hyperkalemia. Subsequently, repeat blood work did not show an improvement and potassium was critically high as well as acidosis has not responded to attempt of acidosis correction with IV treatment and bicarb bicarbonate treatment. The patient received stat dialysis after temporary catheter was placed. The patient is admitted to ICU. Apparently, she was taking metformin prior to this admission and lactic acid was evaluated and is pending. Review of Systems: General: Denies fever, chills. Eyes: Denies vision changes. Ears, Nose, Mouth, and Throat: Denies sore throat, earache. Respiratory: Denies PND, orthopnea. Cardiovascular: Denies chest pain, palpitation. GI: Denies nausea, vomiting. : Denies dysuria, hematuria. Musculoskeletal: Denies muscle aches or joint swelling. Complains of generalized weakness. Denies syncope. Denies seizure, although she has syncope at home. Past Medical History: Diabetes mellitus, hypertension, edema, non-insulin- dependent diabetes mellitus, hyperlipidemia, right shoulder surgery, lumbar fusion, hysterectomy. Family History: Heart disease, diabetes. Social History: Denies tobacco, alcohol, or illicit drugs. Physical Examination: General: The patient is awake, alert, follows commands. Vital Signs: Blood pressure was 122/64, heart rate 111, CO2 is 92, respiratory rate 27. Eyes: Anicteric sclerae. EOMI. Ears, Nose, Mouth, and Throat: Oral mucosa moist. No pallor. Neck: Supple. No JVD. No bruits. Lungs: Clear bilaterally at bases. Heart: S1, S2. No pericardial friction rub Abdomen: Soft, benign, nontender. No rebound, no guarding. Extremities: Slight edema in both ankles. Laboratory Data: Blood work: WBC 6.9, hemoglobin 11.9, hematocrit 37.6, platelet currently is 307,000. Sodium 155, potassium 6.8, BUN 90, creatinine 11.7, glucose 133, total bilirubin 0.3, AST 29, ALT 36, ALP 107. Impression And Plan: 1. Acute kidney injury, severe, associated with severe hyperkalemia, metabolic acidosis of severe degree. The patient will have dialysis today to treat electrolytes abnormalities. Provide metabolic clearance and obtain ultrafiltration. The patient will continue low-sodium diet and p.o. fluid restriction. 2. Diabetes mellitus. The patient cannot take metformin due to severe chronic kidney disease and risk of lactic acidosis. 3. Hypertension. Monitor blood pressure. Avoid LYNNETTE inhibitor. 4. Fatigue, status post syncope, bradyarrhythmia. The patient will follow up with Neurology. MAURICIO/MODGuevara Voice ID: [id number] Report ID: [id number] DIVINA
[2018-12-02] MEDS: ONDANSETRON 4 MG/2 ML VIAL IV PRN (05:40)
[2018-12-02 05:42] LABS: Urine Appearance CLEAR; Urine Bilirubin NEGATIVE (NEG); Urine Blood 3+ (NEG); Urine Color YELLOW; Urine Glucose NEGATIVE (NEG); Urine Protein 2+ (NEG); Urine Urobilinogen 0.2 mg/dL (0.2-1.0)
[2018-12-02 05:43] LABS: Urine Microscopic Reflex ORDER UMIC
[2018-12-02 05:51] LABS: Urine Bacteria <20 /HPF (<20); Urine Culture Reflex Order REFLEXED; Urine RBC 20-50 /HPF (NONE SEEN)
[2018-12-02 06:39] LABS: Absolute Lymphocytes (CBC) 1.2 K/uL (0.7-4.9); Basophils % 0.3 % (0-1.3); Eosinophils % 0.1 % (0-4.4); Lymphocytes % 15.3 % (15.3-44.8); MPV 8.5 fL (7.6-11.3); Monocytes % 6.9 % (3.3-12.3); RBC Red Blood Cell Count 3.48 M/uL (3.86-4.86)
[2018-12-02 07:09] LABS: Bilirubin Total 0.4 mg/dL (0.2-1.0); Potassium 3.6 mmol/L (3.5-5.1); Protein, Total 6.3 g/dL (6.4-8.2)
[2018-12-02] MEDS: INSULIN -REGULAR HUMAN 50 UNIT/0.5 ML ML SQ SCH ×4 (07:30→21:00)
--- NOTE | 2018-12-02 12:27 | RAD REPORT ---
EXAM DESCRIPTION: RAD - Chest Single View - 11/30/2018 10:26 pm CLINICAL HISTORY: 63 years Female dyspnea COMPARISON: None TECHNIQUE: AP view of the chest was obtained. FINDINGS: Cardiac size is within normal limits. Central vessels are moderately increased. Left central venous catheter is present with the tip seen in the region of the superior vena cava. No pneumothorax. Airspace opacities lower lungs bilaterally. No effusions bilaterally. No pneumothorax. IMPRESSION: Atelectatic change versus infiltrate lower lungs bilaterally. Electronically signed by: Clara Gomez MD 11/30/2018 10:34 PM CDT Due to temporary technical issues with the PACS/Fluency reporting system, reports are being signed by the in house radiologist as a courtesy to ensure prompt reporting. The interpreting radiologist is f ully responsible for the content of the report.
--- NOTE | 2018-12-02 12:52 | P.PN ---
Subjective Date of Service: 12/02/18 Chief Complaint: Acute renal failure/ sigmoid diverticulitis Pt seen and examined at bedside with RN. Chart Reviewed. Case DW with Gen surgery and Nephrology. Denies having any nausea vomiting abdominal pain or any other associated symptoms today Review of Systems 10-point ROS is otherwise unremarkable Physical Examination - Vital Signs Temperature: 97.8 F Blood Pressure: 139/67 Pulse: 79 Respirations: 13 Pulse Ox (%): 94 - Physical Exam General: Alert, In no apparent distress HEENT: Atraumatic, PERRLA, EOMI Neck: Supple, JVD not distended Respiratory: Clear to auscultation bilaterally, Normal air movement Cardiovascular: Regular rate/rhythm, Normal S1 S2 Gastrointestinal: Normal bowel sounds, No tenderness Musculoskeletal: No tenderness Integumentary: No rashes Neurological: Normal speech, Normal tone, Normal affect Lymphatics: No axilla or inguinal lymphadenopathy - Studies Medications List Reviewed: Yes Assessment And Plan - Current Problems (Diagnosis) (1) Acute kidney injury Current Visit: Yes Status: Acute Plan: ANALY on CKD. pt with No PMHX of CKD per her but unknown as has not followed up with MD. H/o HTN and DM -BUN.CR improved after Dialysis. -Pt to be started on Perm Dialysis, Perm HD catheter placement requested with Surgery -nephrology and surgery consulted appreciated recommendations (2) Hypertension Current Visit: Yes Status: Chronic Plan: Stable -Will restart Home medication Qualifiers: Hypertension type: essential hypertension Qualified Code(s): I10 - Essential (primary) hypertension (3) Diabetes Current Visit: Yes Status: Chronic Plan: ISS and accuchecks Qualifiers: Diabetes mellitus type: type 2 Diabetes mellitus watermelon inspector insulin use: without watermelon inspector use Diabetes mellitus complication status: with kidney complications Diabetes mellitus complication detail: with chronic kidney disease Chronic kidney disease stage: stage 5, not on chronic dialysis Qualified Code(s): E11.22 - Type 2 diabetes mellitus with diabetic chronic kidney disease; N18.5 - Chronic kidney disease, stage 5 - Plan Pending clinical improvement at this time. Patient to get a permanent HD catheter placement with general surgery. Will consult case management to arrange for chair time. Lab work and urine specimen collected to find out etiology for patient's acute kidney injury. Discharge Plan: Home Plan to discharge in: Greater than 2 days - Code Status/Comfort Care Code Status Assessed: Yes Critical Care: Yes
--- NOTE | 2018-12-02 15:56 | PN ---
Date of Progress Note: 12/02/2018 Subjective: The patient was admitted with acute kidney injury, unknown etiology. According to the p atient, the patient had normal kidney function back in August without mentioning any kidney disease. The patient came to the hospital with creatinine of 11 and hyperkalemia nonoliguric. The patient req uired 2 sessions of dialysis. The patient is still nonoliguric. The patient does not have any other symptoms. Physical Examination: Vital Signs: Blood pressure 119/57, pulse of 76. The patient had good urine output of 450. Chest: Clear to auscultation. Heart: S1 and S2, regular. Abdomen: Soft and nontender. Extremity: No edema. Laboratory Data: Sodium 140, potassium 3.6, bicarb 29, BUN 41, creatinine 6.3, calcium of 8. WBC 7. 9, H and H 10.4/30, platelet of 248, eosinophil of 100. Current Medications: The patient on its include Levaquin 250, Flagyl 500 t.i.d., calcium gluconate, and Zofran. Assessment And Plan: 1.Acute kidney injury, questionable of chronic kidney disease, proteinuric. Serology still pending. Normal size kidney. Had significant hematuria with mild Leukouria. I had long discussion with the patient to evaluate the etiology of disease. We can follow up serology of the patient. I will requ est the record from her previous primary care and we will evaluate if this is all acute. The patient will need to under go kidney biopsy. We will follow up. I am going to go ahead and send for the re st of the serology. I agree with holding the metformin. I am going to send for PTH to evaluate the chronicity of the disease and we will send for protein electrophoresis and we will follow up the alireza ent. The patient is going to need a tunneled dialysis catheter to be placed. We will request surgic al evaluation for that and we will follow up. 2.Hypertension, controlled, optimal. Keep holding LYNNETTE inhibitor for the time being, given the acute kidney injury or known history of kidney disease. 3.Anemia of chronic kidney disease with the presence of acute kidney injury. I am going to need to rule out autoimmune disease. We will follow up and we arranged to rule out lichen disease. I am goi ng to send for SPEP, send for anemia workup. 4.Diabetes. As by primary keep holding the metformin for the time being. FRAN Voice ID: [id number] Report ID: [id number]
[2018-12-03] MEDS: METRONIDAZOLE 500mg IVPB 500 MG/100 ML BAG IV SCH ×3 (04:00→16:59)
[2018-12-03 06:06] LABS: Absolute Lymphocytes (CBC) 1.3 K/uL (0.7-4.9); Basophils % 0.3 % (0-1.3); Eosinophils % 0.2 % (0-4.4); Hematocrit 30.7 % (36.0-45.0); Lymphocytes % 15.3 % (15.3-44.8); MPV 8.4 fL (7.6-11.3); Monocytes % 6.7 % (3.3-12.3); RBC Red Blood Cell Count 3.56 M/uL (3.86-4.86)
[2018-12-03 06:57] LABS: ALT/SGPT 24 U/L (12-78); AST/SGOT 17 U/L (15-37); Albumin 2.8 g/dL (3.4-5.0); Alkaline Phosphatase 75 U/L (45-117); BUN Blood Urea Nitrogen 51 mg/dL (7-18); Bicarbonate 27 mmol/L (21-32); Bilirubin Total 0.4 mg/dL (0.2-1.0); Ferritin 215.2 ng/mL (8-388); Folic Acid, (Folate) > 20.0 ng/mL (3.1-17.5); Glucose Level 113 mg/dL (74-106); Phosphorus 4.9 mg/dL (2.5-4.9); Potassium 3.1 mmol/L (3.5-5.1); Protein, Total 6.1 g/dL (6.4-8.2); Sodium Level 140 mmol/L (136-145); Transferrin 172 mg/dL (200-360)
[2018-12-03] MEDS: Levofloxacin 250mg IV 250 MG/50 ML BAG IV SCH (07:29)
[2018-12-03] MEDS: INSULIN -REGULAR HUMAN 50 UNIT/0.5 ML ML SQ SCH ×4 (07:30→20:06)
[2018-12-03 10:24] LABS: Rheumatoid Factor NEG (NEG)
--- NOTE | 2018-12-03 11:43 | P.PN ---
Subjective Date of Service: 12/03/18 Chief Complaint: Acute renal failure/ sigmoid diverticulitis Pt seen and examined at bedside with RN. Chart Reviewed. Case DW with Gen surgery and Nephrology. Denies having any nausea vomiting abdominal pain or any other associated symptoms today. HD catheter placement scheduled for tomorrow Review of Systems 10-point ROS is otherwise unremarkable Physical Examination - Vital Signs Temperature: 98 F Blood Pressure: 130/49 Pulse: 95 Respirations: 15 Pulse Ox (%): 100 - Physical Exam General: Alert, In no apparent distress HEENT: Atraumatic, PERRLA, EOMI Neck: Supple, JVD not distended Respiratory: Clear to auscultation bilaterally, Normal air movement Cardiovascular: Regular rate/rhythm, Normal S1 S2 Gastrointestinal: Normal bowel sounds, No tenderness Musculoskeletal: No tenderness Integumentary: No rashes Neurological: Normal speech, Normal tone, Normal affect Lymphatics: No axilla or inguinal lymphadenopathy - Studies Medications List Reviewed: Yes Assessment And Plan - Current Problems (Diagnosis) (1) Acute kidney injury Current Visit: Yes Status: Acute Plan: ANALY on CKD. pt with No PMHX of CKD per her but unknown as has not followed up with MD. H/o HTN and DM -BUN.CR improved after Dialysis thru temp Cath -perm HD catheter placement scheduled for tommorrow -General Surgery consulted. Appreciated [facility] - consulted for chair time setup (2) Hypertension Current Visit: Yes Status: Chronic Plan: Stable -Will restart Home medication Qualifiers: Hypertension type: essential hypertension Qualified Code(s): I10 - Essential (primary) hypertension (3) Diabetes Current Visit: Yes Status: Chronic Plan: ISS and accuchecks Qualifiers: Diabetes mellitus type: type 2 Diabetes mellitus assisted insulin use: without terminal carman use Diabetes mellitus complication status: with kidney complications Diabetes mellitus complication detail: with chronic kidney disease Chronic kidney disease stage: stage 5, not on chronic dialysis Qualified Code(s): E11.22 - Type 2 diabetes mellitus with diabetic chronic kidney disease; N18.5 - Chronic kidney disease, stage 5 - Plan Pending clinical improvement at this time. Patient to get a permanent HD catheter placement with general surgery. Will consult case management to arrange for chair time. Lab work and urine specimen collected to find out etiology for patient's acute kidney injury. Discharge Plan: Home Plan to discharge in: Greater than 2 days - Code Status/Comfort Care Code Status Assessed: Yes Critical Care: Yes
--- NOTE | 2018-12-03 12:24 | P.PN ---
Subjective Date of Service: 12/03/18 Chief Complaint: Acute renal failure/ sigmoid diverticulitis Subjective: Improving No new complaints Stable VS Dialysis catheter malfunction today scheduled for tunneled catheter placement tomorrow HD tomorrow after catheter placement F/u serology W/U will try to get old records out patient dialysis chair arrangement Physical Examination - Vital Signs Temperature: 98 F Blood Pressure: 130/49 Pulse: 95 Respirations: 15 Pulse Ox (%): 100 - Physical Exam General: In no apparent distress, Oriented x3 HEENT: Atraumatic Neck: Supple, Without JVD or thyroid abnormality Respiratory: Clear to auscultation bilaterally, Normal air movement Cardiovascular: No edema, Regular rate/rhythm, Normal S1 S2, No rubs, No murmurs Gastrointestinal: Normal bowel sounds, Soft and benign Musculoskeletal: No swelling Integumentary: No rashes - Studies Medications List Reviewed: Yes Assessment And Plan - Current Problems (Diagnosis) (1) Acute kidney injury Current Visit: Yes Status: Acute (2) Diabetes Current Visit: Yes Status: Chronic Qualifiers: Diabetes mellitus type: type 2 Diabetes mellitus alf insulin use: without alf use Diabetes mellitus complication status: with kidney complications Diabetes mellitus complication detail: with chronic kidney disease Chronic kidney disease stage: stage 5, not on chronic dialysis Qualified Code(s): E11.22 - Type 2 diabetes mellitus with diabetic chronic kidney disease; N18.5 - Chronic kidney disease, stage 5 - Plan Acute kidney injury, vs progressive CKD \ unknown baseline Cr F/U serology W/U will try to obtain old records US: mild echogenic kidneys, F/u serology W/u Tunneled cath placement tomorrow and HD after HTN controlled DM as per primary Mild anemia Hb stable no need for JOSE D at this time
[2018-12-03] MEDS: HYDROCODONE/APAP 10/325 TAB PO PRN (13:37)
[2018-12-03] MEDS: ONDANSETRON 4 MG/2 ML VIAL IV PRN (17:04)
[2018-12-03] MEDS ORDERED: NA CHLORIDE 0.9% 250 ML ONE (23:56)
[2018-12-04] MEDS: METRONIDAZOLE 500mg IVPB 500 MG/100 ML BAG IV SCH ×3 (00:40→16:21)
--- NOTE | 2018-12-04 02:08 | CON ---
Date of Consultation: 12/03/2018 Reason For Service: Placement of a tunnel HemoSplit hemodialysis catheter consult. History Of Present Illness: This is the case of a 63-year-old patient with renal failure. She had a n emergent placement of a Oneal catheter several days ago by Dr. Barnes. Now, they asked a tunnel catheter to be placed since patient will continue on hemodialysis and I was called for the consult. She has been improved over the last few days after hemodialysis, although they still have any issues with the catheter on the left side to the point that today she only received partial dialysis. She denies any dysuria, hematuria, hematochezia, or melena. Denies any recent travelling out of the [facility]. Denies any family member sick at home. Review of Systems: Ten points otherwise unremarkable. Allergies: PENICILLIN. Medications: Include aspirin, metformin, hydrochlorothiazide, lisinopril. Social History: She does not smoke. She drinks alcohol occasionally. Family History: Includes heart disease. Past Surgical History: Include right shoulder surgery and hysterectomy. Physical Examination: General: The patient is awake and alert. HEENT: Pupils are equal and reactive. Neck: Supple. Chest: Bilateral breath sounds over the left clavicular region. Patient has a hemodialysis catheter . Heart: S1, S2. Abdomen: Soft and depressible. No guarding or rebound. Extremities: Good capillary refill. Laboratory Data: Blood work shows WBC count of 8.4, coming down from 16; hemoglobin of 10.9; and glory telets of 237 with a creatinine of 0.79. Potassium is 3.1. Assessment And Plan: A 63-year-old patient, in need of hemodialysis catheter tunnel. Benefit, alter natives, and risks of placement of a hemodialysis catheter and removal of a Oneal catheter were ful ly explained to the patient which include but are not limited to infection, bleeding, damage to adjac ent structures, anesthesia complication, PE, DVT, pneumothorax, hemothorax, pericardiac tamponade, br eakage of the catheter, SD, even . She also understands this might not relieve any symptoms and she might need more than one surgical intervention. She understands this is a temporary catheter an d she needs a more permanent access in the next few weeks if she continues with hemodialysis. She wi ll sign a consent. ISAI/MADHURI Voice ID: [id number] Report ID: [id number]
[2018-12-04 02:53] LABS: HBsAG Nonreactive (Nonreactive)
[2018-12-04 06:23] LABS: Albumin 2.8 g/dL (3.4-5.0); Phosphorus 4.3 mg/dL (2.5-4.9); Potassium 3.1 mmol/L (3.5-5.1)
[2018-12-04] MEDS: INSULIN -REGULAR HUMAN 50 UNIT/0.5 ML ML SQ SCH ×4 (07:30→20:42)
[2018-12-04] MEDS: DOCOSAHEXANOIC AC/EPA 1000 MG PO SCH (08:06)
--- NOTE | 2018-12-04 10:27 | P.PN ---
Subjective Date of Service: 12/04/18 Chief Complaint: Acute renal failure/ sigmoid diverticulitis Subjective: Improving No new complaints Stable VS cath malfunction yesterday scheduled for tunneled catheter placement today and HD after F/u serology W/U old records request sent to her pharmacy , waiting for results out patient dialysis chair arrangement Physical Examination - Vital Signs Temperature: 98.7 F Blood Pressure: 137/68 Pulse: 86 Respirations: 16 Pulse Ox (%): 94 - Physical Exam General: In no apparent distress, Oriented x3 HEENT: Atraumatic Neck: Supple, Without JVD or thyroid abnormality Respiratory: Clear to auscultation bilaterally, Normal air movement Cardiovascular: No edema, Normal pulses, Regular rate/rhythm, Normal S1 S2 Gastrointestinal: Normal bowel sounds, Soft and benign - Studies Medications List Reviewed: Yes Assessment And Plan - Current Problems (Diagnosis) (1) Acute kidney injury Current Visit: Yes Status: Acute (2) Diabetes Current Visit: Yes Status: Chronic Qualifiers: Diabetes mellitus type: type 2 Diabetes mellitus wireless development manager insulin use: without penitentiary use Diabetes mellitus complication status: with kidney complications Diabetes mellitus complication detail: with chronic kidney disease Chronic kidney disease stage: stage 5, not on chronic dialysis Qualified Code(s): E11.22 - Type 2 diabetes mellitus with diabetic chronic kidney disease; N18.5 - Chronic kidney disease, stage 5 - Plan Acute kidney injury, vs progressive CKD \ unknown baseline Cr F/U serology W/U will try to obtain old records US: mild echogenic kidneys, F/u serology W/u Tunneled cath placement today and HD after HTN controlled DM as per primary Mild anemia Hb stable no need for JOSE D at this time
--- NOTE | 2018-12-04 12:13 | P.PN ---
Subjective Date of Service: 12/04/18 Chief Complaint: Acute renal failure/ sigmoid diverticulitis Pt seen and examined at bedside with RN. Chart Reviewed. Case DW with Gen surgery and Nephrology. Denies having any nausea vomiting abdominal pain or any other associated symptoms today. HD catheter placement scheduled for today. Temporary catheter nonfunctional at this time Review of Systems 10-point ROS is otherwise unremarkable Physical Examination - Vital Signs Temperature: 98.7 F Blood Pressure: 137/68 Pulse: 86 Respirations: 16 Pulse Ox (%): 94 - Physical Exam General: Alert, In no apparent distress HEENT: Atraumatic, PERRLA, EOMI Neck: Supple, JVD not distended Respiratory: Clear to auscultation bilaterally, Normal air movement Cardiovascular: Regular rate/rhythm, Normal S1 S2 Gastrointestinal: Normal bowel sounds, No tenderness Musculoskeletal: No tenderness Integumentary: No rashes Neurological: Normal speech, Normal tone, Normal affect Lymphatics: No axilla or inguinal lymphadenopathy - Studies Medications List Reviewed: Yes Assessment And Plan - Current Problems (Diagnosis) (1) Acute kidney injury Current Visit: Yes Status: Acute Plan: ANALY on CKD. pt with No PMHX of CKD per her but unknown as has not followed up with MD. H/o HTN and DM. Patient now with end-stage renal disease on hemodialysis -BUN.CR improved after Dialysis thru temp Cath. However temporary catheter and not functional since yesterday -perm HD catheter placement scheduled for today -General Surgery consulted. Appreciated [facility] - consulted for chair time setup (2) Hypertension Current Visit: Yes Status: Chronic Plan: Stable Qualifiers: Hypertension type: essential hypertension Qualified Code(s): I10 - Essential (primary) hypertension (3) Diabetes Current Visit: Yes Status: Chronic Plan: ISS and accuchecks Qualifiers: Diabetes mellitus type: type 2 Diabetes mellitus medical terminologist insulin use: without medical terminologist use Diabetes mellitus complication status: with kidney complications Diabetes mellitus complication detail: with chronic kidney disease Chronic kidney disease stage: stage 5, not on chronic dialysis Qualified Code(s): E11.22 - Type 2 diabetes mellitus with diabetic chronic kidney disease; N18.5 - Chronic kidney disease, stage 5 (4) End stage renal disease Current Visit: Yes Status: Acute Plan: End-stage renal disease now with hemodialysis -will need to get chair time set up - Plan Pending clinical improvement at this time. Patient to get a permanent HD catheter placement with general surgery. Will consult case management to arrange for chair time. Lab work and urine specimen collected to find out etiology for patient's end-stage renal disease Discharge Plan: Home Plan to discharge in: Greater than 2 days - Code Status/Comfort Care Code Status Assessed: Yes Critical Care: No
[2018-12-04] MEDS ORDERED: NA CHLORIDE 0.9% 500 ML ONE (13:33)
[2018-12-04] MEDS ORDERED: CIPROFLOXACIN 400mg IV 400 MG/200 ML BAG IV ONE (13:51)
[2018-12-04] MEDS ORDERED: PROPOFOL 200 MG/20 ML VIAL IV ONE (13:55)
[2018-12-04] MEDS ORDERED: LIDOCAINE 2% MPF 5 ML VIAL ONE (13:56)
[2018-12-04] MEDS ORDERED: FENTANYL CITR 100 MCG/2 ML ONE ×2 (13:56→14:39)
[2018-12-04] MEDS ORDERED: ONDANSETRON 4 MG/2 ML VIAL ONE (13:56)
[2018-12-04] MEDS ORDERED: MIDAZOLAM HCL 2 MG/2 ML INJ ONE (13:56)
[2018-12-04] MEDS ORDERED: HEPARIN 5000 UNIT/ML 1 ML VIAL ONE (14:00)
[2018-12-04] MEDS ORDERED: NA CHLORIDE 0.9% 100 ML IV ONE (14:01)
[2018-12-04] MEDS ORDERED: LIDOCAINE 1% 20 ML MDV ONE (14:01)
[2018-12-04] MEDS ORDERED: NS 0.9% VIAL 10 ML ONE (14:06)
--- NOTE | 2018-12-04 14:59 | P.BOP ---
Preoperative diagnosis: ESRD, Postoperative diagnosis: same Primary procedure: 1. Placement of hemosplit HD tunneled catheter R Internal Jugular vein Secondary procedure: 2. interpretation of fluoroscopy, 3. right neck ultrasound Other procedure(s): 4. Removal of left subclavian vein hali dialysis catheter Estimated blood loss: <10cc Specimen: intact hali Anesthesia: General Complications: None Transferred to: Recovery Room Condition: Good
[2018-12-04] MEDS ORDERED: EPHEDRINE SULF 50 MG/ML VIAL ONE (15:09)
--- NOTE | 2018-12-04 15:13 | RAD REPORT ---
EXAM DESCRIPTION: RAD - Fluoroscopy <1 Hour - 12/04/2018 3:03 pm CLINICAL HISTORY: Device placement central venous catheter placement FINDINGS: A central venous catheter was placed into the superior vena cava.9 fluoroscopic spot image s are submitted. The examination was performed by Dr. Couch Fluoroscopy time 0.5 minutes
[2018-12-04] MEDS ORDERED: MORPHINE 4 MG/ML SYR ONE (15:40)
--- NOTE | 2018-12-04 15:45 | RAD REPORT ---
EXAM DESCRIPTION: Jayla Single View12/04/2018 3:25 pm CLINICAL HISTORY: Device placement/central venous catheter placement COMPARISON: none FINDINGS: Tips of a central venous catheter lie within the superior vena cava. A pneumothorax is not present. The heart is normal size IMPRESSION: Central venous catheter with its tips in the superior vena cava
[2018-12-04] MEDS ORDERED: HYDRALAZINE HCL 20 MG/ML VIAL IV PRN (17:40)
[2018-12-05] MEDS: METRONIDAZOLE 500mg IVPB 500 MG/100 ML BAG IV SCH ×3 (00:12→16:50)
--- NOTE | 2018-12-05 01:52 | OP ---
Date of Procedure: 12/04/2018 Surgeon: Salvador Couch MD Preoperative Diagnosis: End-stage renal disease. Postoperative Diagnosis: End-stage renal disease. Procedures: 1.Placement of a HemoSplit hemodialysis tunnel catheter in the right internal jugular vein. 2.Interpretation of fluoroscopy. 3.Right neck ultrasound. 4.Removal of a left subclavian vein Oneal dialysis catheter. Anesthesia: General plus local. Indication For Procedure: This is the case of a 63-year-old patient, comes to us in need of temporar y tunneled hemodialysis catheter. The patient had a Oneal placed emergently in the left subclavian vein several days ago by another physician. They asked me to put a tunneled catheter on the right s hilary since the patient will need more than just a few days of hemodialysis. So, the patient was fully explained the benefits, alternatives, and risks of placement of a HemoSplit hemodialysis catheter in the right internal jugular vein with benefits, alternatives, and risks including, but not limited to infection, bleeding, damage to adjacent structures, anesthesia complication, pneumothorax, hemothora x, cardiac arrhythmias, pericardiac tamponade, DVTs, PE, MN, even . She also understands this m ay not relieve the symptoms, she might need more than one surgical intervention. She understood, sig lucinda a consent. The patient also wants the left supraclavicular catheter removed since not working go od for her. She understand the risks of that too including PE. She signed a consent. Description Of Procedure: The patient was brought to the operating room, placed in supine position. Anesthesia was given without complication. Upper chest area bilaterally was prepped and draped in a sterile fashion. A time-out was called. The patient was placed in the Trendelenburg position. A r ight neck ultrasound was done to locate the right jugular vein and found to be patent, compressible. We used guidance to place an 18-gauge needle in the right internal jugular vein at the first attempt . A guidewire was passed through. The needle was removed. A small incision was made in the right u pper chest. A catheter was tunneled underneath the skin to meet that incision in the neck region. I used some fluoroscopy again. We proceeded to place dilators through the guidewire and then eventual ly introducer. The catheter was placed through the introducer. Introducer was peeled off. The cath eter seems to be in good place with fluoroscopy. Excellent backflow and inflow. The line was flushe d with heparinized solution and secured in place with 3-0 nylon and the subcu done with 3-0 chromic. Sponge count and instrument counts were correct. The patient kept in Trendelenburg position. We we nt to the opposite side, removed the stitches, and pulled the Oneal without tension. The Oneal s eems to be intact. Pressure was applied for 15 minutes with no bleeding. Dressings were applied ove r the area. The patient tolerated the procedure well. The patient was sent to recovery in stable co ndition. A chest x-ray was ordered stat. ISAI/MADHURI Voice ID: [id number] Report ID: [id number]
[2018-12-05] MEDS: HYDROCODONE/APAP 10/325 TAB PO PRN (03:13)
[2018-12-05 03:39] LABS: Urine Protein/Creatinine Ratio 0.89 ratio (<0.15)
[2018-12-05 05:12] LABS: Phosphorus 3.5 mg/dL (2.5-4.9); Potassium 3.4 mmol/L (3.5-5.1)
[2018-12-05] MEDS: METOPROLOL TAR 25 MG TAB PO SCH ×2 (05:42→16:50)
[2018-12-05] MEDS ORDERED: NA CHLORIDE 0.9% 250 ML ONE (06:02)
[2018-12-05] MEDS: Levofloxacin 250mg IV 250 MG/50 ML BAG IV SCH (06:04)
[2018-12-05] MEDS: INSULIN -REGULAR HUMAN 50 UNIT/0.5 ML ML SQ SCH ×4 (07:30→21:00)
[2018-12-05] MEDS: DOCOSAHEXANOIC AC/EPA 1000 MG PO SCH (08:21)
[2018-12-05] MEDS: ONDANSETRON 4 MG/2 ML VIAL IV PRN (08:23)
--- NOTE | 2018-12-05 10:43 | P.PN ---
Subjective Date of Service: 12/05/18 Chief Complaint: Acute renal failure/ sigmoid diverticulitis Pt seen and examined at bedside with RN. Chart Reviewed. Case DW with Gen surgery and Nephrology. Denies having any nausea vomiting abdominal pain or any other associated symptoms today. Status post HD catheter placement at this time. Review of Systems 10-point ROS is otherwise unremarkable Physical Examination - Vital Signs Temperature: 98.4 F Blood Pressure: 125/67 Pulse: 76 Respirations: 16 Pulse Ox (%): 92 - Physical Exam General: Alert, In no apparent distress HEENT: Atraumatic, PERRLA, EOMI Neck: Supple, JVD not distended Respiratory: Clear to auscultation bilaterally, Normal air movement Cardiovascular: Regular rate/rhythm, Normal S1 S2 Gastrointestinal: Normal bowel sounds, No tenderness Musculoskeletal: No tenderness Integumentary: No rashes Neurological: Normal speech, Normal tone, Normal affect Lymphatics: No axilla or inguinal lymphadenopathy - Studies Medications List Reviewed: Yes Assessment And Plan - Current Problems (Diagnosis) (1) Acute kidney injury Current Visit: Yes Status: Acute Plan: ANALY on CKD. pt with No PMHX of CKD per her but unknown as has not followed up with MD. H/o HTN and DM. Patient now with end-stage renal disease on hemodialysis -BUN.CR improved after now as patient started on hemodialysis -status post perm HD catheter placement -General Surgery consulted. Appreciated [facility] -CM consulted for chair time setup (2) Hypertension Current Visit: Yes Status: Chronic Plan: Stable Qualifiers: Hypertension type: essential hypertension Qualified Code(s): I10 - Essential (primary) hypertension (3) Diabetes Current Visit: Yes Status: Chronic Plan: ISS and accuchecks Qualifiers: Diabetes mellitus type: type 2 Diabetes mellitus termite helper insulin use: without residential use Diabetes mellitus complication status: with kidney complications Diabetes mellitus complication detail: with chronic kidney disease Chronic kidney disease stage: stage 5, not on chronic dialysis Qualified Code(s): E11.22 - Type 2 diabetes mellitus with diabetic chronic kidney disease; N18.5 - Chronic kidney disease, stage 5 (4) End stage renal disease Current Visit: Yes Status: Acute Plan: End-stage renal disease now with hemodialysis -will need to get chair time set up - Plan Patient is currently status post HD catheter placement with general surgery now. Consulted Case management for chair time set up. Once chair time is been set up patient then can be successfully discharged home under stable condition. Discharge Plan: Home Plan to discharge in: 48 Hours - Code Status/Comfort Care Code Status Assessed: Yes Critical Care: No
[2018-12-05 22:57] LABS: P-ANCA Anti-Myeloperoxidase Ab <1.0 AI (<1.0)
[2018-12-06] MEDS: METRONIDAZOLE 500mg IVPB 500 MG/100 ML BAG IV SCH ×2 (00:35→08:56)
--- NOTE | 2018-12-06 03:12 | PN ---
Date of Progress Note: 12/05/2018 Chief Complaint: Acute renal failure. History Of Present Illness: The patient has severe acute kidney injury associated with septic syndro me. She was found to have sigmoid diverticulitis. She has history of diabetes mellitus. She was st arted on dialysis. When she presented to the hospital was found to have severe metabolic acidosis. Ultrasound showed mildly echogenic kidneys. There was no hydronephrosis. Review of Systems: Denies fever, chills. Physical Examination: Lungs: Few crackles at bases. Heart: S1, S2. Abdomen: Soft, benign. Extremities: No edema. Laboratory Data: Hemoglobin 10.9, WBC 8.4, platelet count 237,000. Sodium 141, potassium 3.4, chlor hilary 107, CO2 26, BUN 28, creatinine 4.86, calcium 7.6, phosphorus is 3.5. Impression And Plan: 1.Acute kidney injury, likely the patient has kidney insufficiency, chronic kidney disease. Renal u ltrasound showed echogenic kidneys, which corresponds with kidney disease secondary to chronic kidney disease. There is element of acute kidney injury. Plan is to monitor urine output and re-evaluate kidney function with renal panel daily and plan dialysis accordingly. 2.Diabetes mellitus. The patient is not a candidate for metformin due to kidney insufficiency. 3.Renal osteodystrophy. The patient will continue renal diet. Phosphorus level is controlled. MAURICIO/MADHURI Voice ID: [id number] Report ID: [id number]
[2018-12-06] MEDS: METOPROLOL TAR 25 MG TAB PO SCH ×2 (06:00→18:23)
[2018-12-06 06:07] LABS: Albumin 2.9 g/dL (3.4-5.0); Phosphorus 3.7 mg/dL (2.5-4.9); Potassium 3.5 mmol/L (3.5-5.1)
[2018-12-06] MEDS ORDERED: NA CHLORIDE 0.9% 0 ML ONE (06:23)
[2018-12-06] MEDS: INSULIN -REGULAR HUMAN 50 UNIT/0.5 ML ML SQ SCH ×4 (07:30→21:15)
[2018-12-06] MEDS: DOCOSAHEXANOIC AC/EPA 1000 MG PO SCH (08:56)
--- NOTE | 2018-12-06 11:08 | P.PN ---
Subjective Date of Service: 12/06/18 Chief Complaint: Acute renal failure/ sigmoid diverticulitis Pt seen and examined at bedside with RN. Chart Reviewed. Case DW with Gen surgery and Nephrology. Denies having any nausea vomiting abdominal pain or any other associated symptoms today. Status post HD catheter placement at this time. Review of Systems 10-point ROS is otherwise unremarkable Physical Examination - Vital Signs Temperature: 98.1 F Blood Pressure: 135/70 Pulse: 76 Respirations: 17 Pulse Ox (%): 97 - Physical Exam General: Alert, In no apparent distress HEENT: Atraumatic, PERRLA, EOMI Neck: Supple, JVD not distended Respiratory: Clear to auscultation bilaterally, Normal air movement Cardiovascular: Regular rate/rhythm, Normal S1 S2 Gastrointestinal: Normal bowel sounds, No tenderness Musculoskeletal: No tenderness Integumentary: No rashes Neurological: Normal speech, Normal tone, Normal affect Lymphatics: No axilla or inguinal lymphadenopathy - Studies Medications List Reviewed: Yes Assessment And Plan - Current Problems (Diagnosis) (1) Acute kidney injury Current Visit: Yes Status: Acute Plan: ANALY on CKD. pt with No PMHX of CKD per her but unknown as has not followed up with MD. H/o HTN and DM. Patient now with end-stage renal disease on hemodialysis -BUN.CR improved now as patient started on hemodialysis -status post perm HD catheter placement -General Surgery consulted. Appreciated [facility] -CM consulted for chair time setup (2) Hypertension Current Visit: Yes Status: Chronic Plan: Stable Qualifiers: Hypertension type: essential hypertension Qualified Code(s): I10 - Essential (primary) hypertension (3) Diabetes Current Visit: Yes Status: Chronic Plan: ISS and accuchecks Qualifiers: Diabetes mellitus type: type 2 Diabetes mellitus fdc insulin use: without fdc use Diabetes mellitus complication status: with kidney complications Diabetes mellitus complication detail: with chronic kidney disease Chronic kidney disease stage: stage 5, not on chronic dialysis Qualified Code(s): E11.22 - Type 2 diabetes mellitus with diabetic chronic kidney disease; N18.5 - Chronic kidney disease, stage 5 (4) End stage renal disease Current Visit: Yes Status: Acute Plan: End-stage renal disease now with hemodialysis -will need to get chair time set up - Plan Patient is currently status post HD catheter placement with general surgery now. Consulted Case management for chair time set up. Once chair time is been set up patient then can be successfully discharged home under stable condition. Discharge Plan: Home Plan to discharge in: Greater than 2 days - Code Status/Comfort Care Code Status Assessed: Yes Critical Care: No
--- NOTE | 2018-12-07 01:50 | PN ---
Date of Progress Note: 12/06/2018 Chief Complaint: 1.Acute kidney injury, advanced. 2.End-stage renal disease. The patient has nonoliguric urine output. She is dialysis dependent. 3.The patient is to have dialysis tomorrow. She underwent tunneled dialysis catheter placement. Review of Systems: Denies fever or chills. Physical Examination: Lungs: Few crackles at the bases. Heart: S1, S2. Abdomen: Soft, benign. Extremities: No edema. Impression And Plan: 1.End-stage renal disease. Dialysis will be done tomorrow. Continue low-sodium diet and renal diet . Avoid nephrotoxic medication. 2.Diabetes mellitus. The patient is not a candidate for metformin due to high risk of lactic acidos is. She will continue insulin. Renal ultrasound shows mild echogenic kidneys. The patient likely h as chronic kidney disease due to diabetes and hypertension. Continue to monitor for any evidence of renal recovery at this point. The patient is dialysis dependent. Next dialysis will be scheduled fo r tomorrow. MAURICIO/MADHURI Voice ID: [id number] Report ID: [id number]
[2018-12-07 04:36] LABS: Albumin, (SPE) 2.9 g/dL (3.8-4.8); Alpha-1-Globulins 0.4 g/dL (0.2-0.3); Alpha-2-Globulins 0.7 g/dL (0.5-0.9); Gamma Globulins 0.7 g/dL (0.8-1.7); INTERPRETATION REPORT
[2018-12-07] MEDS: METOPROLOL TAR 25 MG TAB PO SCH ×2 (05:16→18:00)
[2018-12-07 07:29] LABS: Albumin 3.3 g/dL (3.4-5.0); Phosphorus 3.8 mg/dL (2.5-4.9); Potassium 3.1 mmol/L (3.5-5.1)
[2018-12-07] MEDS: INSULIN -REGULAR HUMAN 50 UNIT/0.5 ML ML SQ SCH ×4 (07:30→21:00)
[2018-12-07] MEDS: Levofloxacin 250mg IV 250 MG/50 ML BAG IV SCH (07:33)
[2018-12-07] MEDS ORDERED: NA CHLORIDE 0.9% 100 ML ONE (07:42)
[2018-12-07] MEDS: DOCOSAHEXANOIC AC/EPA 1000 MG PO SCH (08:58)
[2018-12-07 09:10] LABS: HIV AG/AB 4TH GEN Non-reactive (Non-reactive)
--- NOTE | 2018-12-07 12:11 | P.DS ---
Admission Date: 11/30/18 Discharge Date: 12/07/18 Primary Care Provider: Dr. Hart; Nephrology-Dr. Kingsley Disposition: ROUTINE DISCHARGE Discharge Condition: GOOD Reason for Admission: Acute renal failure/ sigmoid diverticulitis Consultations: Nephrology-Dr. Kingsley Surgery-Dr. Kohli Procedures: Renal US: FINDINGS: The right kidney measures 11 cm with mildly increased echotexture. The left kidney measures 10 cm with a mildly increased echotexture. 2 centimeter isoechoic structure present Hydronephrosis is not seen. Bladder poorly visualized sessile Flores catheter is in place IMPRESSION: Mildly increased renal echotexture may indicate parenchymal disease 2 centimeter isoechoic structure within the left kidney probably representing a lobulation rather than a mass. As a precaution it is recommended that the patient have a followup ultrasound in 3 months to assess stability. Surgery: Date of service 12/01/[address] Esau Kohli Preop diagnosis: Acute renal failure Postop diagnosis: Acute renal failure Procedure: Insertion of left subclavian hemodialysis-Oneal catheter Surgery: Date of service 12/04/2018 Surgeon: Dr. Salvador Couch Preop diagnosis: End-stage renal disease Postop diagnosis: End-stage renal disease Primary procedure: Placement of HemoSplit hemodialysis tunneled catheter to the right internal jugular vein. Interpretation of fluoroscopy. Right neck ultrasound. Removal of left subclavian vein Oneal dialysis catheter CT scan: COMPARISON: None TECHNIQUE: Computed axial tomography of the abdomen and pelvis was obtained. IV was not requested. Oral contrast was given. Coronal reconstructions performed. All CT scans are performed using dose optimization technique as appropriate and may include automated exposure control or mA/KV adjustment according to patient size. FINDINGS: The evaluation of solid organs and vessels is limited secondary to the lack of contrast administration. Fatty liver. Mild hepatomegaly Postsurgical changes involve the spine. Flores catheter within the bladder The Spleen, pancreas, adrenals and kidneys appear grossly normal. The appendix is normal. Diverticula stem from the colon. Minimal stranding adjacent to the sigmoid colon 4 centimeter soft tissue structure posterior lower right pelvis. IMPRESSION: Minimal sigmoid diverticulitis 4 centimeter soft tissue structure posterior lower right pelvis of uncertain etiology. Pelvic ultrasound is recommended Medical Problem List: Fatigue secondary to acute on chronic renal failure with hyperkalemia and metabolic acidosis now with end-stage renal disease on hemodialysis Diabetes mellitus type 2 Sigmoid diverticulitis Hypertension 4 cm soft tissue structure to the lower right pelvis Anemia of chronic disease with iron and B12 deficiency Obesity, BMI 37.3 Brief History of Present Illness: 63-year-old female presented to emergency room with increased fatigue , vomiting and generalized weakness. In the emergency room patient found to be in acute renal failure with hyperkalemia and significant metabolic acidosis. Patient reported not having any chronic kidney issues. Patient was having episodes of hypotension and bradycardia. Patient was admitted to the ICU for emergent dialysis. Hospital Course: Patient presented with fatigue, generalized weakness and nausea. Patient found to have acute renal failure with significant hyperkalemia and metabolic acidosis. Patient previously on Metformin, HCTZ and Lisinopril. This was discontinued. Patient required emergent dialysis. Surgery was consulted for Oneal dialysis catheter placement. Dialysis was initiated. Her condition improved during her stay. Her condition now indicated end-stage renal disease requiring chronic hemodialysis. Surgery was consulted again for tunneled hemodialysis catheter placement and removal of Oneal dialysis catheter. During her stay patient has responded to hemodialysis. rn patient services has helped to the make arrangements for hemodialysis as an outpatient. Chair time was set up. At discharge she will continue with hemodialysis every Tuesdays, and Saturdays at 11:00 a.m. Patient will follow up with nephrology as an outpatient to further monitor and address. Medications have been adjusted. Patient will no longer take metformin, HCTZ, and Lisinopril. Recommend no further use of nonsteroidal anti-inflammatories. Future medications will need to be renally dosed. Patient with underlying diabetes. Patient previously on metformin. Metformin has been discontinued due to her acute renal failure. At discharge patient will continue with a diabetic diet. Recommend to maintain blood sugars less 140 fasting and less than 200 after meals. If blood sugars remain elevated she may be started Glipizide 2.5 mg one pill daily. This can be further addressed by her PCP. She is to hold the glipizide if blood sugar less than 100. Further adjustment can be done by her PCP. Patient with hypertension. Medications have been adjusted during her stay. She was previously on HCTZ and Lisinopril. This was discontinued due to his acute renal failure. Metoprolol was started. At discharge she will continue with medication-Metoprolol 25 mg one pill twice daily. Recommend to maintain blood pressures less 150/80. Further adjustment can be done by her PCP. During the course of her stay patient was found to have minimal sigmoid diverticulitis. Patient was started on antibiotic therapy. Patient was treated for 7 days. No significant abdominal pain noted at discharge. No need for further treatment. Recommend follow up with GI as an outpatient in 2-4 weeks. Patient should have colonoscopy in 6-8 weeks to further address. Recommend to continue with a low residue GI soft diet. CT scan also revealed a 4 cm soft tissue structure to the lower right pelvis. Pelvic ultrasound was recommended. This can be done as an outpatient. Recommend to follow up with gynecology as an outpatient to further address. Patient also found to have anemia of chronic disease. Iron and B12 deficiency also identified. At discharge she will continue with iron 325 mg daily and B12 supplementation daily. Recommend to recheck CBC in 2-4 weeks to monitor her progress. Recommend for the patient to follow up with gynecology and GI to further address her anemia. Patient may require EGD and colonoscopy along with pelvic ultrasound as an outpatient to further address. Vital Signs/Physical Exam: Temp Pulse Resp BP Pulse Ox 98.1 F 86 16 134/65 93 12/07/18 04:00 12/07/18 05:16 12/07/18 04:00 12/07/18 05:16 12/07/18 04:00 General: Alert, In no apparent distress, Oriented x3, Cooperative HEENT: Atraumatic Neck: Supple Respiratory: Clear to auscultation bilaterally, Normal air movement Cardiovascular: Normal pulses, Regular rate/rhythm Gastrointestinal: Normal bowel sounds, Soft and benign, Non-distended, No tenderness, No masses, No rebound, No guarding Musculoskeletal: No erythema, No tenderness, No warmth Integumentary: No tenderness/swelling, No erythema, No warmth, No cyanosis Neurological: Normal speech, Normal strength at 5/5 x4 extr, Normal tone, Normal affect Laboratory Data at Discharge: WBC 8.4 K/uL (4.3-10.9) 12/03/18 05:30 Hgb 10.9 g/dL (12.0-15.0) L 12/03/18 05:30 Hct 30.7 % (36.0-45.0) L 12/03/18 05:30 Plt Count 237 K/uL (152-406) 12/03/18 05:30 Sodium 141 mmol/L (136-145) 12/07/18 05:40 Potassium 3.1 mmol/L (3.5-5.1) L 12/07/18 05:40 BUN 37 mg/dL (7-18) H 12/07/18 05:40 Creatinine 5.30 mg/dL (0.55-1.3) H* 12/07/18 05:40 Glucose 110 mg/dL (74-106) H 12/07/18 05:40 Phosphorus 3.8 mg/dL (2.5-4.9) 12/07/18 05:40 Total Bilirubin 0.4 mg/dL (0.2-1.0) 12/03/18 05:30 AST 17 U/L (15-37) 12/03/18 05:30 ALT 24 U/L (12-78) 12/03/18 05:30 Alkaline Phosphatase 75 U/L (45-117) 12/03/18 05:30 Lipase 240 U/L (73-393) 11/30/18 17:04 Home Medications: Aspirin [Aspirin EC 81 MG] 81 mg PO DAILY 12/01/18 Docosahexanoic AC/Epa [Fish Oil 1,000 MG*] 1 cap PO DAILY 12/01/18 Cyanocobalamin (Vitamin B-12) [Vitamin B-12] 1,000 mcg PO DAILY #30 tablet 12/07 Ferrous Sulfate [Iron] 325 mg PO DAILY #30 tablet 12/07/18 Glipizide [Glucotrol] 2.5 mg PO DAILY #30 tablet 12/07/18 Metoprolol Tartrate [Lopressor*] 25 mg PO BID 6AM 6PM #60 tab 12/07/18 New Medications: Cyanocobalamin (Vitamin B-12) [Vitamin B-12] 1,000 mcg PO DAILY #30 tablet Ferrous Sulfate [Iron] 325 mg PO DAILY #30 tablet Glipizide [Glucotrol] 2.5 mg PO DAILY #30 tablet Metoprolol Tartrate [Lopressor*] 25 mg PO BID 6AM 6PM #60 tab Patient Discharge Instructions: 1. Recommend follow up with her PCP in 1 week to follow up this hospitalization. 2. Patient presented with fatigue, generalized weakness and nausea. Patient found to have acute renal failure with significant hyperkalemia and metabolic acidosis. Patient previously on Metformin, HCTZ and Lisinopril. This was discontinued. Patient required emergent dialysis. Surgery was consulted for Oneal dialysis catheter placement. Dialysis was initiated. Her condition improved during her stay. Her condition now indicated end-stage renal disease requiring chronic hemodialysis. Surgery was consulted again for tunneled hemodialysis catheter placement and removal of Oneal dialysis catheter. During her stay patient has responded to hemodialysis. rn patient services has helped to the make arrangements for hemodialysis as an outpatient. Chair time was set up. At discharge she will continue with hemodialysis every Tuesdays, and Saturdays at 11:00 a.m. Patient will follow up with nephrology as an outpatient to further monitor and address. Medications have been adjusted. Patient will no longer take metformin, HCTZ, and Lisinopril. Recommend no further use of nonsteroidal anti-inflammatories. Future medications will need to be renally dosed. 3. Patient with underlying diabetes. Patient previously on metformin. Metformin has been discontinued due to her acute renal failure. At discharge patient will continue with a diabetic diet. Recommend to maintain blood sugars less 140 fasting and less than 200 after meals. If blood sugars remain elevated she may be started Glipizide 2.5 mg one pill daily. This can be further addressed by her PCP. She is to hold the glipizide if blood sugar less than 100. Further adjustment can be done by her PCP. 4. Patient with hypertension. Medications have been adjusted during her stay. She was previously on HCTZ and Lisinopril. This was discontinued due to his acute renal failure. Metoprolol was started. At discharge she will continue with medication- Metoprolol 25 mg one pill twice daily. Recommend to maintain blood pressures less 150/80. Further adjustment can be done by her PCP. 5. During the course of her stay patient was found to have minimal sigmoid diverticulitis. Patient was started on antibiotic therapy. Patient was treated for 7 days. No significant abdominal pain noted at discharge. No need for further treatment. Recommend follow up with GI as an outpatient in 2-4 weeks. Patient should have colonoscopy in 6-8 weeks to further address. Recommend to continue with a low residue GI soft diet. 6. CT scan also revealed a 4 cm soft tissue structure to the lower right pelvis. Pelvic ultrasound was recommended. This can be done as an outpatient. Recommend to follow up with gynecology as an outpatient to further address. 7. Patient also found to have anemia of chronic disease. Iron and B12 deficiency also identified. At discharge she will continue with iron 325 mg daily and B12 supplementation daily. Recommend to recheck CBC in 2- 4 weeks to monitor her progress. Recommend for the patient to follow up with gynecology and GI to further address her anemia. Patient may require EGD and colonoscopy along with pelvic ultrasound as an outpatient to further address. Diet: ADA Activity: Fall precautions Time spent managing pt's care (in minutes): 55
[2018-12-07 14:37] LABS: Vitamin D 1,25-Dihydroxy Total <8 pg/mL (18-72); Vitamin D,1,25-OH2, D2 <8 pg/mL
--- NOTE | 2018-12-08 03:38 | PN ---
Date of Progress Note: 12/07/2018 Chief Complaint: Acute kidney injury, severe. The patient remains dialysis dependent. The patient received dialysis today. Procedure was well tolerated. Review of Systems: Denies fever, chills. Physical Examination: Lungs: Few crackles at bases. Heart: S1, S2. Abdomen: Soft, benign. Extremities: Minimal edema. Impression And Plan: 1.End-stage renal disease. The patient remains dialysis dependent. She developed severe acute kidn ey injury in setting of chronic kidney disease. The patient was taken off metformin prior to this ad mission. The patient was taking metformin and subsequently when she came to the hospital, she was fo und to have metabolic acidosis and was started on dialysis and had emergent dialysis done for her sev ere hyperkalemia. Potassium level is stabilizing with low potassium diet and dialysis. 2.Diabetes mellitus. Continue insulin. The patient is not a candidate for p.o. medication. The pa damon was instructed that she cannot take metformin because it creates high risk for metabolic acidos is. 3.Anemia of chronic kidney disease. Continue JOSE D. 4.Hypertension. Blood pressure control. MAURICIO/MODL Voice ID: [id number] Report ID: [id number]
== END 2018-12-07 21:15 | disposition home or self-care (01) | DRG 674 ==
LOC: ER 14:26 → ERHOLD 18:42 → 3RD-ICU 12-01 00:44 → 2ND 12-03 12:40
PROVIDERS: ADMIT Family Medicine; ATTEND Family Medicine
PROC: 05H633Z Insertion of Infusion Device into Left Subclavian Vein, Percutaneous Approach (ICD-10-PCS; 2018-12-01)
PROC: 5A1D70Z Performance of Urinary Filtration, Intermittent, Less than 6 Hours Per Day (ICD-10-PCS; 2018-12-01)
PROC: 05PYX3Z Removal of Infusion Device from Upper Vein, External Approach (ICD-10-PCS; 2018-12-04)
PROC: 05HM33Z Insertion of Infusion Device into Right Internal Jugular Vein, Percutaneous Approach (ICD-10-PCS; 2018-12-04)
PROC: B5131ZA Fluoroscopy of Right Jugular Veins using Low Osmolar Contrast, Guidance (ICD-10-PCS; 2018-12-04)
PROC: 0JH60XZ Insertion of Tunneled Vascular Access Device into Chest Subcutaneous Tissue and Fascia, Open Approach (ICD-10-PCS; principal; 2018-12-04 13:15)
DX: N17.9 Acute kidney failure, unspecified (principal); K57.32 Diverticulitis of large intestine without perforation or abscess without bleeding; E87.2 Acidosis; I12.0 Hypertensive chronic kidney disease with stage 5 chronic kidney disease or end stage renal disease; T82.41XA Breakdown (mechanical) of vascular dialysis catheter, initial encounter; N18.6 End stage renal disease; E11.22 Type 2 diabetes mellitus with diabetic chronic kidney disease; E87.5 Hyperkalemia; I95.9 Hypotension, unspecified; I49.8 Other specified cardiac arrhythmias; E78.5 Hyperlipidemia, unspecified; D63.1 Anemia in chronic kidney disease; D51.9 Vitamin B12 deficiency anemia, unspecified; D50.9 Iron deficiency anemia, unspecified; R19.03 Right lower quadrant abdominal swelling, mass and lump; Z79.84 Long term (current) use of oral hypoglycemic drugs; Z79.82 Long term (current) use of aspirin; Z88.0 Allergy status to penicillin
CPT/HCPCS: 36415; 51702; 70450; 71045; 72125; 74176; 76000; 76770; 80048; 80053; 80069; 80076; 81003; 81015; 82550; 82570; 82607; 82652; 82728; 82746; 82805; 82962; 83520; 83540; 83690; 83970; 84156; 84165; 84443; 84466; 85025; 85044; 86021; 86038; 86317; 86334; 86335; 86430; 86704; 86706; 87086; 87088; 87340; 87389; 88300; 90935; 93005; 97116; 97163; 97530; 99285; C1752; J0360; J0610; J0696; J0744; J1644; J2250; J2405; J2704; J3010; J7030

== ENCOUNTER 2018-12-09 06:54 | Emergency (ER) | payer SELFPAY ==
[2018-12-09 08:21] LABS: Absolute Lymphocytes (CBC) 1.9 K/uL (0.7-4.9); Absolute Monocytes 0.6 K/uL (0.1-1.3); Absolute Neutrophil 6.6 K/uL (1.8-8.0); Basophils % 0.9 % (0-1.3); Hematocrit 30.6 % (36.0-45.0); Lymphocytes % 20.3 % (15.3-44.8); MPV 8.7 fL (7.6-11.3); Monocytes % 6.3 % (3.3-12.3); RBC Red Blood Cell Count 3.52 M/uL (3.86-4.86)
[2018-12-09 08:23] LABS: Albumin 3.4 g/dL (3.4-5.0); Bilirubin Total 0.4 mg/dL (0.2-1.0); Potassium 3.2 mmol/L (3.5-5.1); Protein, Total 7.1 g/dL (6.4-8.2)
--- NOTE | 2018-12-09 09:18 | EDPHYS ---
Physician Documentation [facility] Name: Tawana Wells Age: 63 yrs Sex: Female : 1955 Arrival Date: 12/09/2018 Time: 06:58 Bed 8 Private MD: ED Physician Andres Little HPI: 12/09 07:11 This 63 yrs old Female presents to ER via Ambulatory with complaints of port ps1 not working after dialysis. 07:11 patient has an verenice cath in right chest that is reportedly not working since yesterday. ps1 No pain or signs of infection. Pt of Dr. Guaman. . Historical: - Allergies: 07:10 PENICILLINS; ss - PMHx: 07:10 Hypertension; Hyperlipidemia; Diabetes - NIDDM; ESRD; ss - PSHx: 07:10 lumbar fusion; shoulder; dialysis catheter placed; ss - Immunization history:: Adult Immunizations up to date. - Social history:: Smoking status: Patient/guardian denies using tobacco. - Ebola Screening: : Patient denies exposure to infectious person Patient denies travel to an Ebola-affected area in the 21 days before illness onset. ROS: 07:11 Constitutional: Negative for fever, chills, and weight loss, Eyes: Negative for injury, ps1 pain, redness, and discharge, ENT: Negative for injury, pain, and discharge, Cardiovascular: Negative for chest pain, palpitations, and edema, Respiratory: Negative for shortness of breath, cough, wheezing, and pleuritic chest pain, Abdomen/GI: Negative for abdominal pain, nausea, vomiting, diarrhea, and constipation, MS/Extremity: Negative for injury and deformity, Neuro: Negative for headache, weakness, numbness, tingling, and seizure, Psych: Negative for depression, anxiety, suicide ideation, homicidal ideation, and hallucinations. 07:11 Skin: Positive for verenice cath in right chest. . Exam: 07:11 Constitutional: This is a well developed, well nourished patient who is awake, alert, ps1 and in no acute distress. Head/Face: Normocephalic, atraumatic. Cardiovascular: Regular rate and rhythm. No gallops, murmurs, or rubs. Normal PMI, no JVD. No pulse deficits. Respiratory: Lungs have equal breath sounds bilaterally, clear to auscultation and percussion. No rales, rhonchi or wheezes noted. No increased work of breathing, no retractions or nasal flaring. Abdomen/GI: Soft, non-tender, with normal bowel sounds. No distension or tympany. No guarding or rebound. No evidence of tenderness throughout. Skin: Warm, dry with normal turgor. Normal color with no rashes, no lesions, and no evidence of cellulitis. MS/ Extremity: Pulses equal, no cyanosis. Neurovascular intact. Full, normal range of motion. Neuro: Awake and alert, GCS 15, oriented to person, place, time, and situation. Cranial nerves II-XII grossly intact. Sensory grossly intact. Psych: Awake, alert, with orientation to person, place and time. Behavior, mood, and affect are within normal limits. 07:11 Chest/axilla: Inspection: normal, Palpation: is normal, Axilla: are normal, dialysis cath in right chest. Vital Signs: 07:10 BP 117 / 99; Pulse 71; Resp 16; Temp 98.5(TE); Pulse Ox 97% on R/A; Weight 87.09 kg; ss Height 5 ft. 9 in. (175.26 cm); Pain 0/10; 09:32 BP 133 / 77; Pulse 67; Resp 16; Temp 98; Pulse Ox 100% ; bp 07:10 Body Mass Index 28.35 (87.09 kg, 175.26 cm) ss MDM: 07:24 Data reviewed: vital signs, nurses notes. ED course: RN evaluated cath and can push but ps1 not draw. . 07:25 Patient medically screened. ps1 09:14 ED course: labs reviewed and not requiring emergent dialysis. Spoke with Abena and ps1 patient has an appointment with access center at 3pm for exchange. Patient coordinated transportation to meet visit. Stable for discharge. . 12/09 07:23 Order name: CBC with Diff; Complete Time: 08:36 ps1 12/09 07:23 Order name: CMP; Complete Time: 08:36 ps1 12/09 07:23 Order name: CXR XRAY ps1 Administered Medications: No medications were administered Disposition: 12/09/18 09:17 Discharged to Home. Impression: Malfunction of dialysis port. - Condition is Stable. - Discharge Instructions: Vascular Access for Hemodialysis. - Medication Reconciliation Form, Thank You Letter, Antibiotic Education, Prescription Opioid Use form. - Follow up: Deanna Cunha MD; When: As needed; Reason: Further diagnostic work-up, Recheck today's complaints, Continuance of care, Re-evaluation by your physician. Follow up: Emergency Department; When: As needed; Reason: Fever > 102 F, Worsening of condition. - Problem is new. - Symptoms are unchanged. Signatures: Dispatcher [employer] EDPA Almaz Boyd RN RN ss Alfa Fay RN RN bp Andres Little MD MD ps1 Corrections: (The following items were deleted from the chart) 09:34 09:17 12/09/2018 09:17 Discharged to Home. Impression: Malfunction of dialysis port. bp Condition is Stable. Forms are Medication Reconciliation Form, Thank You Letter, Antibiotic Education, Prescription Opioid Use. Follow up: Deanna Cunha; When: As needed; Reason: Further diagnostic work-up, Recheck today's complaints, Continuance of care, Re-evaluation by your physician. Follow up: Emergency Department; When: As needed; Reason: Fever > 102 F, Worsening of condition. Problem is new. Symptoms are unchanged. ps1
--- NOTE | 2018-12-09 09:18 | ER ---
Nurse's Notes [facility] Name: Tawana Wells Age: 63 yrs Sex: Female : 1955 Arrival Date: 12/09/2018 Time: 06:58 Bed 8 Private MD: Diagnosis: Malfunction of dialysis port Presentation: 12/09 07:06 Presenting complaint: Patient states: dialysis catheter would not work during dialysis ss yesterday. Pt was unable to start her session and was told to go to [facility] to have it fixed, but was unable to make it there. Transition of care: patient was not received from another setting of care. Onset of symptoms was December 08, 2018. Risk Assessment: Do you want to hurt yourself or someone else? Patient reports no desire to harm self or others. Initial Sepsis Screen: Does the patient meet any 2 criteria? No. Patient's initial sepsis screen is negative. Does the patient have a suspected source of infection? No. Patient's initial sepsis screen is negative. Care prior to arrival: None. 07:06 Method Of Arrival: Ambulatory ss 07:06 Acuity: RAYMOND 3 ss Triage Assessment: 07:00 General: Appears in no apparent distress. comfortable, Behavior is calm, cooperative, bp appropriate for age. Pain: Denies pain. EENT: No deficits noted. Neuro: Level of Consciousness is awake, alert, obeys commands, Oriented to person, place, time, situation, Appropriate for age. Cardiovascular: No deficits noted. Respiratory: No deficits noted. GI: No signs and/or symptoms were reported involving the gastrointestinal system. : No signs and/or symptoms were reported regarding the genitourinary system. Derm: No deficits noted. Musculoskeletal: No deficits noted. Historical: - Allergies: 07:10 PENICILLINS; ss - PMHx: 07:10 Hypertension; Hyperlipidemia; Diabetes - NIDDM; ESRD; ss - PSHx: 07:10 lumbar fusion; shoulder; dialysis catheter placed; ss - Immunization history:: Adult Immunizations up to date. - Social history:: Smoking status: Patient/guardian denies using tobacco. - Ebola Screening: : Patient denies exposure to infectious person Patient denies travel to an Ebola-affected area in the 21 days before illness onset. Screenin:25 Abuse screen: Denies threats or abuse. Denies injuries from another. Nutritional bp screening: No deficits noted. Tuberculosis screening: No symptoms or risk factors identified. Fall Risk None identified. Assessment: 07:10 General: SEE TRIAGE NOTE. bp 07:24 Reassessment: DIALYSIS PORT ASSESSED FOR PATENCY UNDER MD SUPERVISION. NO BLOOD RETURN, bp BUT FLUSHES PATENTLY. 08:34 Reassessment: ALL CURRENT ORDERS COMPLETED, RAD RESULTS PENDING. bp 09:32 Reassessment: PT D/C HOME AMBULATORY WITH FRIEND, DX WITH MALFUNCTION OF DIALYSIS PORT. bp Vital Signs: 07:10 BP 117 / 99; Pulse 71; Resp 16; Temp 98.5(TE); Pulse Ox 97% on R/A; Weight 87.09 kg; ss Height 5 ft. 9 in. (175.26 cm); Pain 0/10; 09:32 BP 133 / 77; Pulse 67; Resp 16; Temp 98; Pulse Ox 100% ; bp 07:10 Body Mass Index 28.35 (87.09 kg, 175.26 cm) ED Course: 06:58 Patient arrived in ED. am2 07:01 Andres Little MD is Attending Physician. ps1 07:09 Triage completed. ss 07:10 Arm band placed on right wrist. ss 07:11 Alfa Fay, RN is Primary Nurse. bp 07:25 Patient has correct armband on for positive identification. Bed in low position. Call bp light in reach. Side rails up X2. Adult w/ patient. 08:53 CXR XRAY In Process Unspecified. EDMS 09:15 Deanna Cunha MD is Referral Physician. ps1 09:32 No provider procedures requiring assistance completed. Patient did not have IV access bp during this emergency room visit. Administered Medications: No medications were administered Outcome: 09:17 Discharge ordered by . ps1 09:33 Discharged to home ambulatory, with family. bp 09:33 Condition: stable 09:33 Discharge instructions given to patient, Instructed on discharge instructions, follow up and referral plans. Demonstrated understanding of instructions, follow-up care, Prescriptions given X 2. 09:34 Patient left the ED. bp Signatures: Dispatcher [employer] EDMS Almaz Boyd RN RN Rosaura Montes De Oca am2 Alfa Fay RN RN bp Andres Little MD MD ps1
--- NOTE | 2018-12-09 10:16 | RAD REPORT ---
EXAM DESCRIPTION: RAD - Chest Single View - 12/09/2018 8:57 am CLINICAL HISTORY: Chest discomfort, malfunctioning dialysis catheter COMPARISON: December 04, 2018 TECHNIQUE: AP portable chest image was obtained 0855 hours . FINDINGS: No focal lung parenchymal process. Hazy opacification at the right base probably atelectas is. Infiltrate or pleural effusion are doubtful. No pulmonary edema pattern. Heart and vasculature ar e normal. No measurable pleural effusion and no pneumothorax. No acute bony abnormality seen. No acut e aortic finding. The small portion of the dialysis catheter in the neck is cut off of the film. No abnormal bend or ki nk. Positioning does not appear to have changed since comparison. IMPRESSION: No acute cardiopulmonary process.
== END 2018-12-09 09:34 | disposition home or self-care (01) ==
LOC: ER 06:54
DX: T82.41XA Breakdown (mechanical) of vascular dialysis catheter, initial encounter (principal); E11.22 Type 2 diabetes mellitus with diabetic chronic kidney disease; I12.0 Hypertensive chronic kidney disease with stage 5 chronic kidney disease or end stage renal disease; N18.6 End stage renal disease; Z88.0 Allergy status to penicillin; Z99.2 Dependence on renal dialysis
CPT/HCPCS: 36415; 71045; 80053; 85025; 99283

== ENCOUNTER 2022-07-22 21:58 | Emergency (ER) | payer MEDICARE ==
--- OUTSIDE RECORDS SUMMARY | 2022-07-22 22:04 | XMS REPORT | Continuity of Care Document ---
:1955 Author Organization [facility] t Address [address] [place] [address] Care Team Providers Name Role Phone Slava SIMON, Eduardo Matta Primary Care Physician [phone] Reva Gómez Attending Clinician Unavailable Amaris Sky Attending Clinician Unavailable Payers Payer Name Policy Type Policy Effective Date Expiration Date Sour ce Number [facility] 53 [id number] Commo n Spirit DUAL [facility] HEALTH [id number] 2022 (MEDICARE 00:00:00 REPLACEMENT HMO) [employer] MEDICARE C1 [id number] 2020 Common Sp gwendolyn 00:00:[address] [facility] [employer] MEDICARE C1 [id number] 2020 Common Sp gwendolyn 00:00:00 [facility] Problems Condition Condition Condition Status Onset Resolution Last Treating Co mments Source Name Details Category Date Date Treatment Clinician Date [id number] Cervical Problem Commo n radiculopa Spirit thy due to - [facility]I degenerati [facility] disease of [facility] [id number] Primary Problem Comm on osteoarthr Spirit itis of - [facility] right knee [facility] Chronic Stage 3a Problem Common kidney chronic Spirit disease kidney - [facility] stage 3A disease [facility] [id number] Stage 3b Problem Comm on chronic Spirit kidney - [facility] disease [facility] [id number] Type 2 Problem Common diabetes Spirit mellitus - [facility] without complicati [facility] on, Medical without Center long-term current use of insulin [id number] ESRD (end Problem Comm on stage Spirit renal - [facility]I disease) [facility] [id number] Gastroesop Problem Co mmon hageal Spirit reflux - [facility] disease [facility] esophagiti Medica [facility] Center [id number] Low HDL Problem Commo n (under 40) Spirit - [facility] [id number] Subclinica Problem Com mon l Spirit hypothyroi - [facility] dism [facility] Mixed Mixed Problem Common hyperlipid hyperlipid Sp gwendolyn emia emia - [facility] [id number] Hypertrigl Problem Co mmon yceridemia Spirit - [facility] [id number] Tinnitus Problem Commo n of right Spirit ear - [facility] [id number] Essential Problem Comm on (primary) Spirit hypertensi - [facility] on [facility] [id number] Diverticul Problem Co mmon osis Spirit - [facility] Chronic +5th digit Problem Comm on kidney eff Spirit disease 03/30/20*Ch - CHI stage 3 ronic kidney [facility] disease, Medical stage 3 Center (moderate) Chronic Hypertensi Problem Comm on kidney ve chronic Spirit disease kidney - [facility]I due to disease St hypertensi with stage Radha kes on 1 through Medical stage 4 Center chronic kidney disease, or unspecifie d chronic kidney disease Diabetic 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 kidney Center disease Allergies, Adverse Reactions, Alerts Allergy Allergy Status Severity Reaction(s) Onset Inactive Treating Comm ents Source Name Type Date Date Clinician Latex Propensi Active Rash 2018-06 Methodi ty to 07-14 adverse 00:00: Hospita reaction 00 l s to drug Celecoxi Propensi Active Rash Method i b ty to 03-05 adverse 00:00: Hospita reaction 00 l s to drug Penicill Propensi Active Rash Method i in G ty to 03-05 adverse 00:00: Hospita reaction 00 l s to drug 0 Drug Active rash Common allergy [facility] Family History Family Member Diagnosis Comments Start Date Stop Date Source Natural father Heart disease [facility] Natural mother Cancer [facility] Natural mother Diabetes [facility] Natural mother Heart disease [facility] Natural mother Hypertension [facility] Social History Social Habit Start Date Stop Date Quantity Comments Source History of Common Spirit - Tobacco Use [facility] Alcohol intake 2019-05-19 2019-05-19 Current drinker [facility] 00:00:00 00:00:00 of alcohol Hospital (finding) Tobacco use and 2019-03-05 2019-03-05 Smokeless tobacco [facility] exposure 00:00:00 00:00:00 non-user Hospital Alcohol Comment 2019-03-05 2019-03-05 seldom Religious 00:00:00 00:00:00 Hospital Sex Ass[birth year] At [birth year] Religious 00:00:00 00:00:00 Hospital Smoking Status Start Date Stop Date Source Never Smoker [facility] Medications Ordered Filled Start Stop Current Ordering Indication Dosage Frequency Signature Comments Components Source Medication Medication Date Date Medication? Clinician (SIG) Name Name Jardiance Jardiance 2021- No 1{table QD Jardiance 10 MG 10 MG 10-29 t} 10 MG 00:00: 00:00 00 :00 Jardiance Jardiance 2021- No 1{table QD Jardiance 10 MG 10 MG 10-29 t} 10 MG 00:00: 00:00 00 :00 Glimepiride Glimepiride 2020-06 No 1{table Glimepirid 2 MG 2 MG 2-16 t} e 2 MG 00:00: 00 Glimepiride Glimepiride 2020-06 No 1{table Glimepirid 2 MG 2 MG 2-16 t} e 2 MG 00:00: 00 Azithromyci Azithromyci 2020-06- No QD Azithromyc n 250 MG n 250 MG 07-01 in 250 MG 00:00: 00:00 00 :00 amLODIPine amLODIPine 2019-06 No 1{table QD amLODIPine Besylate Besylate -16 t} Besylate 2.5 MG 2.5 MG 00:00: 2.5 MG 00 amLODIPine amLODIPine 2019-06 No 1{table QD amLODIPine Besylate Besylate 1-16 t} Besylate 2.5 MG 2.5 MG 00:00: 2.5 MG 00 amLODIPine amLODIPine 2019-06 No 1{table QD amLODIPine Besylate Besylate 1-16 t} Besylate 2.5 MG 2.5 MG 00:00: 2.5 MG 00 amLODIPine amLODIPine 2019-06 No 1{table QD amLODIPine Besylate Besylate 1-16 t} Besylate 2.5 MG 2.5 MG 00:00: 2.5 MG 00 amLODIPine amLODIPine 2019-06 No 1{table QD amLODIPine Besylate Besylate 1-16 t} Besylate 2.5 MG 2.5 MG 00:00: 2.5 MG 00 amLODIPine amLODIPine 2019-06 No 1{table QD amLODIPine Besylate Besylate 1-16 t} Besylate 2.5 MG 2.5 MG 00:00: 2.5 MG 00 amLODIPine amLODIPine 2019-06 No 1{table QD amLODIPine Besylate Besylate 1-16 t} Besylate 2.5 MG 2.5 MG 00:00: 2.5 MG 00 amLODIPine amLODIPine 2019-06 No 1{table QD amLODIPine Besylate Besylate 1-16 t} Besylate 2.5 MG 2.5 MG 00:00: 2.5 MG 00 amLODIPine amLODIPine 2019-06 No 1{table QD amLODIPine Besylate Besylate 1-16 t} Besylate 2.5 MG 2.5 MG 00:00: 2.5 MG 00 amLODIPine amLODIPine 2019-06 No 1{table QD amLODIPine Besylate Besylate 1-16 t} Besylate 2.5 MG 2.5 MG 00:00: 2.5 MG 00 amLODIPine amLODIPine 2019-06 No 1{table QD amLODIPine Besylate Besylate 1-16 t} Besylate 2.5 MG 2.5 MG 00:00: 2.5 MG 00 amLODIPine amLODIPine 2019-06 No 1{table QD amLODIPine Besylate Besylate 1-16 t} Besylate 2.5 MG 2.5 MG 00:00: 2.5 MG 00 amLODIPine amLODIPine 2019-06 No 1{table QD amLODIPine Besylate Besylate 1-16 t} Besylate 2.5 MG 2.5 MG 00:00: 2.5 MG 00 amLODIPine amLODIPine 2019-06 No 1{table QD amLODIPine Besylate Besylate 1-16 t} Besylate 2.5 MG 2.5 MG 00:00: 2.5 MG 00 amLODIPine amLODIPine 2019-06 No 1{table QD amLODIPine Besylate Besylate 1-16 t} Besylate 2.5 MG 2.5 MG 00:00: 2.5 MG 00 amLODIPine amLODIPine 2019-06 No 1{table QD amLODIPine Besylate Besylate 1-16 t} Besylate 2.5 MG 2.5 MG 00:00: 2.5 MG 00 amLODIPine amLODIPine 2019-06 No 1{table QD amLODIPine Besylate Besylate 1-16 t} Besylate 2.5 MG 2.5 MG 00:00: 2.5 MG 00 amLODIPine amLODIPine 2019-06 No 1{table QD amLODIPine Besylate Besylate 1-16 t} Besylate 2.5 MG 2.5 MG 00:00: 2.5 MG 00 amLODIPine amLODIPine 2019-06 No 1{table QD amLODIPine Besylate Besylate 1-16 t} Besylate 2.5 MG 2.5 MG 00:00: 2.5 MG 00 amLODIPine amLODIPine 2019-06 No 1{table QD amLODIPine Besylate Besylate 1-16 t} Besylate 2.5 MG 2.5 MG 00:00: 2.5 MG 00 amLODIPine amLODIPine 2019-06 No 1{table QD amLODIPine Besylate Besylate 1-16 t} Besylate 2.5 MG 2.5 MG 00:00: 2.5 MG 00 amLODIPine amLODIPine 2019-06 No 1{table QD amLODIPine Besylate Besylate 1-16 t} Besylate 2.5 MG 2.5 MG 00:00: 2.5 MG 00 aspirin 2018-06 Yes 81mg QD Take 81 mg Meth terrance (ECOTRIN) 1-[address] 81 MG 18:53: daily. Hospita enteric 55 l coated tablet omega 2018-06 Yes Take by Methodi 3-dha-epa-f 1-[address] rupinder oil 18:53: Hospita (FISH OIL) 55 l 1,000 mg (120 mg-180 mg) capsule cyanocobala 2018-06 Yes 1000ug QD Take 1,000 Methodi min 1-[address] (VITAMIN 18:53: mouth Hospita B-12) 1000 55 daily. l MCG tablet ergocalcife 2018-06 Yes [id number] Q7D Take Meth terrance rol 1-18 50,[address] (VITAMIN 18:53: Units by Hospi ta D2) 50,000 55 mouth once l unit a week. capsule metoprolol 2018-06 Yes 25mg Q.5D Take 25 mg M ethodi tartrate 1-[address] (LOPRESSOR) 18:53: (two) Hospi ta 25 mg 55 times a l tablet day. ezetimibe 2018-06 Yes 10mg QD Take 10 mg Me [facility] (ZETIA) 10 1-[address] mg tablet 18:53: daily. Hospit a 55 l niacin 500 2018-06 Yes 500mg QD Take 500 Me [facility] MG tablet 1-[address] 18:53: mouth Hospita 55 daily with l breakfast. aspirin 2018-06 Yes 81mg QD Take 81 mg Meth [facility] (ECOTRIN) 1-[address] 81 MG 18:53: daily. Hospita enteric 55 l coated tablet omega 2018-06 Yes Take by Methodi 3-dha-epa-f 1-[address] rupinder oil 18:53: Hospita (FISH OIL) 55 l 1,000 mg (120 mg-180 mg) capsule cyanocobala 2018-06 Yes 1000ug QD Take 1,000 Methodi min 1-[address] (VITAMIN 18:53: mouth Hospita B-12) 1000 55 daily. l MCG tablet ergocalcife 2018-06 Yes [id number] Q7D Take Meth terrance rol 1-18 50,000 st (VITAMIN 18:53: Units by Hospi ta D2) 50,000 55 mouth once l unit a week. capsule metoprolol 2018-06 Yes 25mg Q.5D Take 25 mg M ethodi tartrate 1-[address] (LOPRESSOR) 18:53: (two) Hospi ta 25 mg 55 times a l tablet day. ezetimibe 2018-06 Yes 10mg QD Take 10 mg [facility] (ZETIA) 10 1-[address] mg tablet 18:53: daily. Hospit a 55 l niacin 500 2018-06 Yes 500mg QD Take 500 Me [facility] MG tablet 1-[address] 18:53: mouth Hospita 55 daily with l breakfast. DIALYVITE 20190 Yes 1{tbl} QD Take 1 Meth [facility] 800 0.8 mg 8-[address] tablet 00:00: mouth Hospita 00 daily. l DIALYVITE 20190 Yes 1{tbl} QD Take 1 Meth [facility] 800 0.8 mg 8-[address] tablet 00:00: mouth Hospita 00 daily. l Aspirin Aspirin Yes Na Sky 1 tablet Co mmon [facility] Iron Iron Yes Na Sky TAKE 1 Common TABLET BY Spirit MOUTH ONCE - CHI DAILY [facility] Ezetimibe Ezetimibe Yes Na Sky TAKE 1 Common TABLET BY Spirit MOUTH ONCE - CHI DAILY FOR [facility] Vitamin B12 Vitamin B12 Yes Na Sky 1 tablet Common [facility] Dialyvite Dialyvite Yes Na Sky 1 tablet Common 800 800 [facility] Fish Oil Fish Oil Yes Na Sky 1 capsule Common [facility] Multivitami Multivitami Yes Na Sky 1 tablet Common n n [facility] Metoprolol Metoprolol Yes Na Sky TAKE 1 Common Tartrate Tartrate TABLET IN gwendolyn AM and 1 - CHI TABLET in [facility] Probiotic Probiotic Yes Na Sky as Co mmon directed [facility] Magnesium Magnesium Yes Na Sky 1 tablet Common Oxide Oxide as needed [facility] Ezetimibe Ezetimibe No Ezetimibe 10 MG 10 MG 10 MG Probiotic - Probiotic - No Probiotic - amLODIPine amLODIPine No amLODIPine Besylate 5 Besylate 5 Besylate 5 MG MG MG Iron 325 Iron 325 No QD Iron 325 (65 Fe) MG (65 Fe) MG (65 Fe) MG tiZANidine tiZANidine No QD tiZANidine HCl 2 MG HCl 2 MG HCl 2 MG amLODIPine amLODIPine No amLODIPine Besylate 5 Besylate 5 Besylate 5 MG MG MG Iron 325 Iron 325 No QD Iron 325 (65 Fe) MG (65 Fe) MG (65 Fe) MG Magnesium Magnesium No 1{table QD Magnesium Oxide 250 Oxide 250 t_as_ne Oxide 250 MG MG eded} MG Multivitami Multivitami No 1{table QD Multivitam n - n - t} in - Probiotic - Probiotic - No Probiotic - Fish Oil Fish Oil No 1{capsu QD Fish Oil 1000 MG 1000 MG le} 1000 MG Rosuvastati Rosuvastati No 1{table Rosuvastat n Calcium 5 n Calcium 5 t} in Calcium MG MG 5 MG Dialyvite Dialyvite No 1{table QD Dialyvite 800 0.8 MG 800 0.8 MG t} 800 0.8 MG Vitamin B12 Vitamin B12 No 1{table QD Vitamin 1000 MCG 1000 MCG t} B12 1000 MCG Aspirin 81 Aspirin 81 No 1{table QD Aspirin 81 MG MG t} MG amLODIPine amLODIPine No 1{table BID amLODIPine Besylate 5 Besylate 5 t} Besylate 5 MG MG MG Ezetimibe Ezetimibe No Ezetimibe 10 MG 10 MG 10 MG Metoprolol Metoprolol No Metoprolol Tartrate 50 Tartrate 50 Tartrate MG MG 50 MG tiZANidine tiZANidine No QD tiZANidine HCl 2 MG HCl 2 MG HCl 2 MG amLODIPine amLODIPine No amLODIPine Besylate 5 Besylate 5 Besylate 5 MG MG MG Iron 325 Iron 325 No QD Iron 325 (65 Fe) MG (65 Fe) MG (65 Fe) MG Magnesium Magnesium No 1{table QD Magnesium Oxide 250 Oxide 250 t_as_ne Oxide 250 MG MG eded} MG Multivitami Multivitami No 1{table QD Multivitam n - n - t} in - Probiotic - Probiotic - No Probiotic - Fish Oil Fish Oil No 1{capsu QD Fish Oil 1000 MG 1000 MG le} 1000 MG Rosuvastati Rosuvastati No 1{table Rosuvastat n Calcium 5 n Calcium 5 t} in Calcium MG MG 5 MG Dialyvite Dialyvite No 1{table QD Dialyvite 800 0.8 MG 800 0.8 MG t} 800 0.8 MG Vitamin B12 Vitamin B12 No 1{table QD Vitamin 1000 MCG 1000 MCG t} B12 1000 MCG Aspirin 81 Aspirin 81 No 1{table QD Aspirin 81 MG MG t} MG amLODIPine amLODIPine No 1{table BID amLODIPine Besylate 5 Besylate 5 t} Besylate 5 MG MG MG Ezetimibe Ezetimibe No Ezetimibe 10 MG 10 MG 10 MG Metoprolol Metoprolol No Metoprolol Tartrate 50 Tartrate 50 Tartrate MG MG 50 MG Iron 325 Iron 325 No QD Iron 325 (65 Fe) MG (65 Fe) MG (65 Fe) MG Aspirin 81 Aspirin 81 No 1{table QD Aspirin 81 MG MG t} MG Metoprolol Metoprolol No Metoprolol Tartrate 50 Tartrate 50 Tartrate MG MG 50 MG Fish Oil Fish Oil No 1{capsu QD Fish Oil 1000 MG 1000 MG le} 1000 MG Ezetimibe Ezetimibe No Ezetimibe 10 MG 10 MG 10 MG amLODIPine amLODIPine No 1{table BID amLODIPine Besylate 5 Besylate 5 t} Besylate 5 MG MG MG Glimepiride Glimepiride No 1{table Glimepirid 4 MG 4 MG t} e 4 MG Probiotic - Probiotic - No Probiotic - tiZANidine tiZANidine No QD tiZANidine HCl 2 MG HCl 2 MG HCl 2 MG Multivitami Multivitami No 1{table QD Multivitam n - n - t} in - Vitamin B12 Vitamin B12 No 1{table QD Vitamin 1000 MCG 1000 MCG t} B12 1000 MCG Rosuvastati Rosuvastati No 1{table Rosuvastat n Calcium 5 n Calcium 5 t} in Calcium MG MG 5 MG Magnesium Magnesium No 1{table QD Magnesium Oxide 250 Oxide 250 t_as_ne Oxide 250 MG MG eded} MG amLODIPine amLODIPine No amLODIPine Besylate 5 Besylate 5 Besylate 5 MG MG MG Dialyvite Dialyvite No 1{table QD Dialyvite 800 0.8 MG 800 0.8 MG t} 800 0.8 MG Iron 325 Iron 325 No QD Iron 325 (65 Fe) MG (65 Fe) MG (65 Fe) MG Aspirin 81 Aspirin 81 No 1{table QD Aspirin 81 MG MG t} MG Metoprolol Metoprolol No Metoprolol Tartrate 50 Tartrate 50 Tartrate MG MG 50 MG Fish Oil Fish Oil No 1{capsu QD Fish Oil 1000 MG 1000 MG le} 1000 MG Ezetimibe Ezetimibe No Ezetimibe 10 MG 10 MG 10 MG amLODIPine amLODIPine No 1{table BID amLODIPine Besylate 5 Besylate 5 t} Besylate 5 MG MG MG Glimepiride Glimepiride No 1{table Glimepirid 4 MG 4 MG t} e 4 MG Probiotic - Probiotic - No Probiotic - tiZANidine tiZANidine No QD tiZANidine HCl 2 MG HCl 2 MG HCl 2 MG Multivitami Multivitami No 1{table QD Multivitam n - n - t} in - Vitamin B12 Vitamin B12 No 1{table QD Vitamin 1000 MCG 1000 MCG t} B12 1000 MCG Rosuvastati Rosuvastati No 1{table Rosuvastat n Calcium 5 n Calcium 5 t} in Calcium MG MG 5 MG Magnesium Magnesium No 1{table QD Magnesium Oxide 250 Oxide 250 t_as_ne Oxide 250 MG MG eded} MG amLODIPine amLODIPine No amLODIPine Besylate 5 Besylate 5 Besylate 5 MG MG MG Dialyvite Dialyvite No 1{table QD Dialyvite 800 0.8 MG 800 0.8 MG t} 800 0.8 MG Iron 325 Iron 325 No QD Iron 325 (65 Fe) MG (65 Fe) MG (65 Fe) MG Aspirin 81 Aspirin 81 No 1{table QD Aspirin 81 MG MG t} MG Metoprolol Metoprolol No Metoprolol Tartrate 50 Tartrate 50 Tartrate MG MG 50 MG Fish Oil Fish Oil No 1{capsu QD Fish Oil 1000 MG 1000 MG le} 1000 MG Ezetimibe Ezetimibe No Ezetimibe 10 MG 10 MG 10 MG amLODIPine amLODIPine No 1{table BID amLODIPine Besylate 5 Besylate 5 t} Besylate 5 MG MG MG Glimepiride Glimepiride No 1{table Glimepirid 4 MG 4 MG t} e 4 MG Probiotic - Probiotic - No Probiotic - tiZANidine tiZANidine No QD tiZANidine HCl 2 MG HCl 2 MG HCl 2 MG Multivitami Multivitami No 1{table QD Multivitam n - n - t} in - Vitamin B12 Vitamin B12 No 1{table QD Vitamin 1000 MCG 1000 MCG t} B12 1000 MCG Rosuvastati Rosuvastati No 1{table Rosuvastat n Calcium 5 n Calcium 5 t} in Calcium MG MG 5 MG Magnesium Magnesium No 1{table QD Magnesium Oxide 250 Oxide 250 t_as_ne Oxide 250 MG MG eded} MG amLODIPine amLODIPine No amLODIPine Besylate 5 Besylate 5 Besylate 5 MG MG MG Dialyvite Dialyvite No 1{table QD Dialyvite 800 0.8 MG 800 0.8 MG t} 800 0.8 MG Iron 325 Iron 325 No QD Iron 325 (65 Fe) MG (65 Fe) MG (65 Fe) MG Aspirin 81 Aspirin 81 No 1{table QD Aspirin 81 MG MG t} MG Metoprolol Metoprolol No Metoprolol Tartrate 50 Tartrate 50 Tartrate MG MG 50 MG Fish Oil Fish Oil No 1{capsu QD Fish Oil 1000 MG 1000 MG le} 1000 MG Ezetimibe Ezetimibe No Ezetimibe 10 MG 10 MG 10 MG amLODIPine amLODIPine No 1{table BID amLODIPine Besylate 5 Besylate 5 t} Besylate 5 MG MG MG Glimepiride Glimepiride No 1{table Glimepirid 4 MG 4 MG t} e 4 MG Probiotic - Probiotic - No Probiotic - tiZANidine tiZANidine No QD tiZANidine HCl 2 MG HCl 2 MG HCl 2 MG Multivitami Multivitami No 1{table QD Multivitam n - n - t} in - Vitamin B12 Vitamin B12 No 1{table QD Vitamin 1000 MCG 1000 MCG t} B12 1000 MCG Rosuvastati Rosuvastati No 1{table Rosuvastat n Calcium 5 n Calcium 5 t} in Calcium MG MG 5 MG Magnesium Magnesium No 1{table QD Magnesium Oxide 250 Oxide 250 t_as_ne Oxide 250 MG MG eded} MG amLODIPine amLODIPine No amLODIPine Besylate 5 Besylate 5 Besylate 5 MG MG MG Dialyvite Dialyvite No 1{table QD Dialyvite 800 0.8 MG 800 0.8 MG t} 800 0.8 MG Iron 325 Iron 325 No QD Iron 325 (65 Fe) MG (65 Fe) MG (65 Fe) MG Aspirin 81 Aspirin 81 No 1{table QD Aspirin 81 MG MG t} MG Rosuvastati Rosuvastati No 1{table Rosuvastat n Calcium 5 n Calcium 5 t} in Calcium MG MG 5 MG Fish Oil Fish Oil No 1{capsu QD Fish Oil 1000 MG 1000 MG le} 1000 MG Ezetimibe Ezetimibe No Ezetimibe 10 MG 10 MG 10 MG amLODIPine amLODIPine No 1{table BID amLODIPine Besylate 5 Besylate 5 t} Besylate 5 MG MG MG Glimepiride Glimepiride No 1{table Glimepirid 4 MG 4 MG t} e 4 MG Probiotic - Probiotic - No Probiotic - tiZANidine tiZANidine No QD tiZANidine HCl 2 MG HCl 2 MG HCl 2 MG Multivitami Multivitami No 1{table QD Multivitam n - n - t} in - Vitamin B12 Vitamin B12 No 1{table QD Vitamin 1000 MCG 1000 MCG t} B12 1000 MCG Dialyvite Dialyvite No 1{table QD Dialyvite 800 0.8 MG 800 0.8 MG t} 800 0.8 MG Magnesium Magnesium No 1{table QD Magnesium Oxide 250 Oxide 250 t_as_ne Oxide 250 MG MG eded} MG amLODIPine amLODIPine No amLODIPine Besylate 5 Besylate 5 Besylate 5 MG MG MG Metoprolol Metoprolol No Metoprolol Tartrate 50 Tartrate 50 Tartrate MG MG 50 MG Iron 325 Iron 325 No QD Iron 325 (65 Fe) MG (65 Fe) MG (65 Fe) MG Aspirin 81 Aspirin 81 No 1{table QD Aspirin 81 MG MG t} MG Rosuvastati Rosuvastati No 1{table Rosuvastat n Calcium 5 n Calcium 5 t} in Calcium MG MG 5 MG Fish Oil Fish Oil No 1{capsu QD Fish Oil 1000 MG 1000 MG le} 1000 MG Ezetimibe Ezetimibe No Ezetimibe 10 MG 10 MG 10 MG amLODIPine amLODIPine No 1{table BID amLODIPine Besylate 5 Besylate 5 t} Besylate 5 MG MG MG Glimepiride Glimepiride No 1{table Glimepirid 4 MG 4 MG t} e 4 MG Probiotic - Probiotic - No Probiotic - tiZANidine tiZANidine No QD tiZANidine HCl 2 MG HCl 2 MG HCl 2 MG Multivitami Multivitami No 1{table QD Multivitam n - n - t} in - Vitamin B12 Vitamin B12 No 1{table QD Vitamin 1000 MCG 1000 MCG t} B12 1000 MCG Dialyvite Dialyvite No 1{table QD Dialyvite 800 0.8 MG 800 0.8 MG t} 800 0.8 MG Magnesium Magnesium No 1{table QD Magnesium Oxide 250 Oxide 250 t_as_ne Oxide 250 MG MG eded} MG amLODIPine amLODIPine No amLODIPine Besylate 5 Besylate 5 Besylate 5 MG MG MG Metoprolol Metoprolol No BID Metoprolol Tartrate 50 Tartrate 50 Tartrate MG MG 50 MG amLODIPine amLODIPine No 1{table BID amLODIPine Besylate 5 Besylate 5 t} Besylate 5 MG MG MG Fish Oil Fish Oil No 1{capsu QD Fish Oil 1000 MG 1000 MG le} 1000 MG tiZANidine tiZANidine No QD tiZANidine HCl 2 MG HCl 2 MG HCl 2 MG Multivitami Multivitami No 1{table QD Multivitam n - n - t} in - Iron 325 Iron 325 No QD Iron 325 (65 Fe) MG (65 Fe) MG (65 Fe) MG Dialyvite Dialyvite No 1{table QD Dialyvite 800 0.8 MG 800 0.8 MG t} 800 0.8 MG amLODIPine amLODIPine No amLODIPine Besylate 5 Besylate 5 Besylate 5 MG MG MG Aspirin 81 Aspirin 81 No 1{table QD Aspirin 81 MG MG t} MG Metoprolol Metoprolol No BID Metoprolol Tartrate 50 Tartrate 50 Tartrate MG MG 50 MG Vitamin B12 Vitamin B12 No 1{table QD Vitamin 1000 MCG 1000 MCG t} B12 1000 MCG Ezetimibe Ezetimibe No Ezetimibe 10 MG 10 MG 10 MG Magnesium Magnesium No 1{table QD Magnesium Oxide 250 Oxide 250 t_as_ne Oxide 250 MG MG eded} MG Rosuvastati Rosuvastati No 1{table Rosuvastat n Calcium 5 n Calcium 5 t} in Calcium MG MG 5 MG Probiotic - Probiotic - No Probiotic - Glimepiride Glimepiride No 1{table Glimepirid 4 MG 4 MG t} e 4 MG amLODIPine amLODIPine No 1{table BID amLODIPine Besylate 5 Besylate 5 t} Besylate 5 MG MG MG Ezetimibe Ezetimibe No QD Ezetimibe 10 MG 10 MG 10 MG tiZANidine tiZANidine No QD tiZANidine HCl 2 MG HCl 2 MG HCl 2 MG Metoprolol Metoprolol No BID Metoprolol Tartrate 50 Tartrate 50 Tartrate MG MG 50 MG Dialyvite Dialyvite No 1{table QD Dialyvite 800 0.8 MG 800 0.8 MG t} 800 0.8 MG Multivitami Multivitami No 1{table QD Multivitam n - n - t} in - Iron 325 Iron 325 No QD Iron 325 (65 Fe) MG (65 Fe) MG (65 Fe) MG Rosuvastati Rosuvastati No 1{table Rosuvastat n Calcium 5 n Calcium 5 t} in Calcium MG MG 5 MG Probiotic - Probiotic - No Probiotic - Vitamin B12 Vitamin B12 No 1{table QD Vitamin 1000 MCG 1000 MCG t} B12 1000 MCG Aspirin 81 Aspirin 81 No 1{table QD Aspirin 81 MG MG t} MG Magnesium Magnesium No 1{table QD Magnesium Oxide 250 Oxide 250 t_as_ne Oxide 250 MG MG eded} MG amLODIPine amLODIPine No amLODIPine Besylate 5 Besylate 5 Besylate 5 MG MG MG Fish Oil Fish Oil No 1{capsu QD Fish Oil 1000 MG 1000 MG le} 1000 MG Glimepiride Glimepiride No 1{table Glimepirid 4 MG 4 MG t} e 4 MG Ezetimibe Ezetimibe No Ezetimibe 10 MG 10 MG 10 MG Magnesium Magnesium No 1{table QD Magnesium Oxide 250 Oxide 250 t_as_ne Oxide 250 MG MG eded} MG Dialyvite Dialyvite No 1{table QD Dialyvite 800 0.8 MG 800 0.8 MG t} 800 0.8 MG amLODIPine amLODIPine No amLODIPine Besylate 5 Besylate 5 Besylate 5 MG MG MG Probiotic - Probiotic - No Probiotic - Glimepiride Glimepiride No Glimepirid 4 MG 4 MG e 4 MG Metoprolol Metoprolol No BID Metoprolol Tartrate 50 Tartrate 50 Tartrate MG MG 50 MG amLODIPine amLODIPine No 1{table BID amLODIPine Besylate 5 Besylate 5 t} Besylate 5 MG MG MG Aspirin 81 Aspirin 81 No 1{table QD Aspirin 81 MG MG t} MG tiZANidine tiZANidine No QD tiZANidine HCl 2 MG HCl 2 MG HCl 2 MG Multivitami Multivitami No 1{table QD Multivitam n - n - t} in - Jardiance Jardiance No Jardiance 10 MG 10 MG 10 MG Glimepiride Glimepiride No 1{table Glimepirid 4 MG 4 MG t} e 4 MG Fish Oil Fish Oil No 1{capsu QD Fish Oil 1000 MG 1000 MG le} 1000 MG Rosuvastati Rosuvastati No Rosuvastat n Calcium 5 n Calcium 5 in Calcium MG MG 5 MG Iron 325 Iron 325 No QD Iron 325 (65 Fe) MG (65 Fe) MG (65 Fe) MG Jardiance Jardiance No 1{table QD Jardiance 10 MG 10 MG t} 10 MG Vitamin B12 Vitamin B12 No 1{table QD Vitamin 1000 MCG 1000 MCG t} B12 1000 MCG Ezetimibe Ezetimibe No Ezetimibe 10 MG 10 MG 10 MG Magnesium Magnesium No 1{table QD Magnesium Oxide 250 Oxide 250 t_as_ne Oxide 250 MG MG eded} MG Dialyvite Dialyvite No 1{table QD Dialyvite 800 0.8 MG 800 0.8 MG t} 800 0.8 MG amLODIPine amLODIPine No amLODIPine Besylate 5 Besylate 5 Besylate 5 MG MG MG Probiotic - Probiotic - No Probiotic - Glimepiride Glimepiride No Glimepirid 4 MG 4 MG e 4 MG Metoprolol Metoprolol No BID Metoprolol Tartrate 50 Tartrate 50 Tartrate MG MG 50 MG amLODIPine amLODIPine No 1{table BID amLODIPine Besylate 5 Besylate 5 t} Besylate 5 MG MG MG Aspirin 81 Aspirin 81 No 1{table QD Aspirin 81 MG MG t} MG tiZANidine tiZANidine No QD tiZANidine HCl 2 MG HCl 2 MG HCl 2 MG Multivitami Multivitami No 1{table QD Multivitam n - n - t} in - Jardiance Jardiance No Jardiance 10 MG 10 MG 10 MG Glimepiride Glimepiride No 1{table Glimepirid 4 MG 4 MG t} e 4 MG Fish Oil Fish Oil No 1{capsu QD Fish Oil 1000 MG 1000 MG le} 1000 MG Rosuvastati Rosuvastati No Rosuvastat n Calcium 5 n Calcium 5 in Calcium MG MG 5 MG Iron 325 Iron 325 No QD Iron 325 (65 Fe) MG (65 Fe) MG (65 Fe) MG Jardiance Jardiance No 1{table QD Jardiance 10 MG 10 MG t} 10 MG Vitamin B12 Vitamin B12 No 1{table QD Vitamin 1000 MCG 1000 MCG t} B12 1000 MCG Magnesium Magnesium No 1{table QD Magnesium Oxide 250 Oxide 250 t_as_ne Oxide 250 MG MG eded} MG Dialyvite Dialyvite No 1{table QD Dialyvite 800 0.8 MG 800 0.8 MG t} 800 0.8 MG amLODIPine amLODIPine No amLODIPine Besylate 5 Besylate 5 Besylate 5 MG MG MG Probiotic - Probiotic - No Probiotic - Glimepiride Glimepiride No Glimepirid 4 MG 4 MG e 4 MG Rosuvastati Rosuvastati No Rosuvastat n Calcium 5 n Calcium 5 in Calcium MG MG 5 MG amLODIPine amLODIPine No 1{table BID amLODIPine Besylate 5 Besylate 5 t} Besylate 5 MG MG MG Aspirin 81 Aspirin 81 No 1{table QD Aspirin 81 MG MG t} MG tiZANidine tiZANidine No QD tiZANidine HCl 2 MG HCl 2 MG HCl 2 MG Ezetimibe Ezetimibe No Ezetimibe 10 MG 10 MG 10 MG Jardiance Jardiance No Jardiance 10 MG 10 MG 10 MG Glimepiride Glimepiride No 1{table Glimepirid 4 MG 4 MG t} e 4 MG Iron 325 Iron 325 No QD Iron 325 (65 Fe) MG (65 Fe) MG (65 Fe) MG Vitamin B12 Vitamin B12 No 1{table QD Vitamin 1000 MCG 1000 MCG t} B12 1000 MCG Multivitami Multivitami No 1{table QD Multivitam n - n - t} in - Jardiance Jardiance No 1{table QD Jardiance 10 MG 10 MG t} 10 MG Metoprolol Metoprolol No Metoprolol Tartrate 50 Tartrate 50 Tartrate MG MG 50 MG Fish Oil Fish Oil No 1{capsu QD Fish Oil 1000 MG 1000 MG le} 1000 MG Magnesium Magnesium No 1{table QD Magnesium Oxide 250 Oxide 250 t_as_ne Oxide 250 MG MG eded} MG Dialyvite Dialyvite No 1{table QD Dialyvite 800 0.8 MG 800 0.8 MG t} 800 0.8 MG amLODIPine amLODIPine No amLODIPine Besylate 5 Besylate 5 Besylate 5 MG MG MG Probiotic - Probiotic - No Probiotic - Glimepiride Glimepiride No Glimepirid 4 MG 4 MG e 4 MG Rosuvastati Rosuvastati No Rosuvastat n Calcium 5 n Calcium 5 in Calcium MG MG 5 MG amLODIPine amLODIPine No 1{table BID amLODIPine Besylate 5 Besylate 5 t} Besylate 5 MG MG MG Aspirin 81 Aspirin 81 No 1{table QD Aspirin 81 MG MG t} MG tiZANidine tiZANidine No QD tiZANidine HCl 2 MG HCl 2 MG HCl 2 MG Ezetimibe Ezetimibe No Ezetimibe 10 MG 10 MG 10 MG Jardiance Jardiance No Jardiance 10 MG 10 MG 10 MG Glimepiride Glimepiride No 1{table Glimepirid 4 MG 4 MG t} e 4 MG Iron 325 Iron 325 No QD Iron 325 (65 Fe) MG (65 Fe) MG (65 Fe) MG Vitamin B12 Vitamin B12 No 1{table QD Vitamin 1000 MCG 1000 MCG t} B12 1000 MCG Multivitami Multivitami No 1{table QD Multivitam n - n - t} in - Jardiance Jardiance No 1{table QD Jardiance 10 MG 10 MG t} 10 MG Metoprolol Metoprolol No Metoprolol Tartrate 50 Tartrate 50 Tartrate MG MG 50 MG Fish Oil Fish Oil No 1{capsu QD Fish Oil 1000 MG 1000 MG le} 1000 MG Farxiga 5mg Farxiga 5mg No Farxiga 5mg Ezetimibe Ezetimibe No Ezetimibe 10 MG 10 MG 10 MG tiZANidine tiZANidine No QD tiZANidine HCl 2 MG HCl 2 MG HCl 2 MG Glimepiride Glimepiride No 1{table Glimepirid 4 MG 4 MG t} e 4 MG Vitamin B12 Vitamin B12 No 1{table QD Vitamin 1000 MCG 1000 MCG t} B12 1000 MCG Aspirin 81 Aspirin 81 No 1{table QD Aspirin 81 MG MG t} MG Rosuvastati Rosuvastati No Rosuvastat n Calcium 5 n Calcium 5 in Calcium MG MG 5 MG Multivitami Multivitami No 1{table QD Multivitam n - n - t} in - Magnesium Magnesium No 1{table QD Magnesium Oxide 250 Oxide 250 t_as_ne Oxide 250 MG MG eded} MG Dialyvite Dialyvite No 1{table QD Dialyvite 800 0.8 MG 800 0.8 MG t} 800 0.8 MG Probiotic - Probiotic - No Probiotic - Fish Oil Fish Oil No 1{capsu QD Fish Oil 1000 MG 1000 MG le} 1000 MG amLODIPine amLODIPine No 1{table BID amLODIPine Besylate 5 Besylate 5 t} Besylate 5 MG MG MG Metoprolol Metoprolol No Metoprolol Tartrate 50 Tartrate 50 Tartrate MG MG 50 MG Iron 325 Iron 325 No QD Iron 325 (65 Fe) MG (65 Fe) MG (65 Fe) MG Farxiga 5mg Farxiga 5mg No Farxiga 5mg Ezetimibe Ezetimibe No Ezetimibe 10 MG 10 MG 10 MG Vitamin B12 Vitamin B12 No 1{table QD Vitamin 1000 MCG 1000 MCG t} B12 1000 MCG tiZANidine tiZANidine No QD tiZANidine HCl 2 MG HCl 2 MG HCl 2 MG Glimepiride Glimepiride No 1{table Glimepirid 4 MG 4 MG t} e 4 MG Aspirin 81 Aspirin 81 No 1{table QD Aspirin 81 MG MG t} MG Rosuvastati Rosuvastati No Rosuvastat n Calcium 5 n Calcium 5 in Calcium MG MG 5 MG Multivitami Multivitami No 1{table QD Multivitam n - n - t} in - Magnesium Magnesium No 1{table QD Magnesium Oxide 250 Oxide 250 t_as_ne Oxide 250 MG MG eded} MG Dialyvite Dialyvite No 1{table QD Dialyvite 800 0.8 MG 800 0.8 MG t} 800 0.8 MG Probiotic - Probiotic - No Probiotic - Fish Oil Fish Oil No 1{capsu QD Fish Oil 1000 MG 1000 MG le} 1000 MG amLODIPine amLODIPine No 1{table BID amLODIPine Besylate 5 Besylate 5 t} Besylate 5 MG MG MG Metoprolol Metoprolol No Metoprolol Tartrate 50 Tartrate 50 Tartrate MG MG 50 MG Iron 325 Iron 325 No QD Iron 325 (65 Fe) MG (65 Fe) MG (65 Fe) MG Aspirin 81 Aspirin 81 No 1{table QD Aspirin 81 MG MG t} MG Vitamin B12 Vitamin B12 No 1{table QD Vitamin 1000 MCG 1000 MCG t} B12 1000 MCG Dialyvite Dialyvite No 1{table QD Dialyvite 800 0.8 MG 800 0.8 MG t} 800 0.8 MG Ezetimibe Ezetimibe No Ezetimibe 10 MG 10 MG 10 MG tiZANidine tiZANidine No QD tiZANidine HCl 2 MG HCl 2 MG HCl 2 MG Rosuvastati Rosuvastati No Rosuvastat n Calcium 5 n Calcium 5 in Calcium MG MG 5 MG Glimepiride Glimepiride No 1{table Glimepirid 4 MG 4 MG t} e 4 MG Fish Oil Fish Oil No 1{capsu QD Fish Oil 1000 MG 1000 MG le} 1000 MG amLODIPine amLODIPine No 1{table BID amLODIPine Besylate 5 Besylate 5 t} Besylate 5 MG MG MG Probiotic - Probiotic - No Probiotic - Multivitami Multivitami No 1{table QD Multivitam n - n - t} in - Magnesium Magnesium No 1{table QD Magnesium Oxide 250 Oxide 250 t_as_ne Oxide 250 MG MG eded} MG Metoprolol Metoprolol No 1{table BID Metoprolol Tartrate 50 Tartrate 50 t_with_ Tartrate MG MG food} 50 MG Farxiga 5mg Farxiga 5mg No Farxiga 5mg Iron 325 Iron 325 No QD Iron 325 (65 Fe) MG (65 Fe) MG (65 Fe) MG Aspirin 81 Aspirin 81 No 1{table QD Aspirin 81 MG MG t} MG Vitamin B12 Vitamin B12 No 1{table QD Vitamin 1000 MCG 1000 MCG t} B12 1000 MCG Dialyvite Dialyvite No 1{table QD Dialyvite 800 0.8 MG 800 0.8 MG t} 800 0.8 MG Ezetimibe Ezetimibe No Ezetimibe 10 MG 10 MG 10 MG tiZANidine tiZANidine No QD tiZANidine HCl 2 MG HCl 2 MG HCl 2 MG Rosuvastati Rosuvastati No Rosuvastat n Calcium 5 n Calcium 5 in Calcium MG MG 5 MG Glimepiride Glimepiride No 1{table Glimepirid 4 MG 4 MG t} e 4 MG Fish Oil Fish Oil No 1{capsu QD Fish Oil 1000 MG 1000 MG le} 1000 MG amLODIPine amLODIPine No 1{table BID amLODIPine Besylate 5 Besylate 5 t} Besylate 5 MG MG MG Probiotic - Probiotic - No Probiotic - Multivitami Multivitami No 1{table QD Multivitam n - n - t} in - Magnesium Magnesium No 1{table QD Magnesium Oxide 250 Oxide 250 t_as_ne Oxide 250 MG MG eded} MG Metoprolol Metoprolol No 1{table BID Metoprolol Tartrate 50 Tartrate 50 t_with_ Tartrate MG MG food} 50 MG Farxiga 5mg Farxiga 5mg No Farxiga 5mg Iron 325 Iron 325 No QD Iron 325 (65 Fe) MG (65 Fe) MG (65 Fe) MG Aspirin 81 Aspirin 81 No 1{table QD Aspirin 81 MG MG t} MG Vitamin B12 Vitamin B12 No 1{table QD Vitamin 1000 MCG 1000 MCG t} B12 1000 MCG Dialyvite Dialyvite No 1{table QD Dialyvite 800 0.8 MG 800 0.8 MG t} 800 0.8 MG Ezetimibe Ezetimibe No Ezetimibe 10 MG 10 MG 10 MG tiZANidine tiZANidine No QD tiZANidine HCl 2 MG HCl 2 MG HCl 2 MG Rosuvastati Rosuvastati No Rosuvastat n Calcium 5 n Calcium 5 in Calcium MG MG 5 MG Glimepiride Glimepiride No 1{table Glimepirid 4 MG 4 MG t} e 4 MG Fish Oil Fish Oil No 1{capsu QD Fish Oil 1000 MG 1000 MG le} 1000 MG amLODIPine amLODIPine No 1{table BID amLODIPine Besylate 5 Besylate 5 t} Besylate 5 MG MG MG Probiotic - Probiotic - No Probiotic - Multivitami Multivitami No 1{table QD Multivitam n - n - t} in - Magnesium Magnesium No 1{table QD Magnesium Oxide 250 Oxide 250 t_as_ne Oxide 250 MG MG eded} MG Metoprolol Metoprolol No 1{table BID Metoprolol Tartrate 50 Tartrate 50 t_with_ Tartrate MG MG food} 50 MG Farxiga 5mg Farxiga 5mg No Farxiga 5mg Iron 325 Iron 325 No QD Iron 325 (65 Fe) MG (65 Fe) MG (65 Fe) MG Ezetimibe Ezetimibe No 1{table QD Ezetimibe 10 MG 10 MG t} 10 MG Aspirin 81 Aspirin 81 No 1{table QD Aspirin 81 MG MG t} MG amLODIPine amLODIPine No 1{table BID amLODIPine Besylate 5 Besylate 5 t} Besylate 5 MG MG MG Probiotic - Probiotic - No Probiotic - tiZANidine tiZANidine No QD tiZANidine HCl 2 MG HCl 2 MG HCl 2 MG Rosuvastati Rosuvastati No Rosuvastat n Calcium 5 n Calcium 5 in Calcium MG MG 5 MG Glimepiride Glimepiride No 1{table Glimepirid 4 MG 4 MG t} e 4 MG Metoprolol Metoprolol No 1{table BID Metoprolol Tartrate 50 Tartrate 50 t_with_ Tartrate MG MG food} 50 MG Fish Oil Fish Oil No 1{capsu QD Fish Oil 1000 MG 1000 MG le} 1000 MG Iron 325 Iron 325 No QD Iron 325 (65 Fe) MG (65 Fe) MG (65 Fe) MG Dialyvite Dialyvite No 1{table QD Dialyvite 800 0.8 MG 800 0.8 MG t} 800 0.8 MG Multivitami Multivitami No 1{table QD Multivitam n - n - t} in - Farxiga 5mg Farxiga 5mg No Farxiga 5mg Magnesium Magnesium No 1{table QD Magnesium Oxide 250 Oxide 250 t_as_ne Oxide 250 MG MG eded} MG Vitamin B12 Vitamin B12 No 1{table QD Vitamin 1000 MCG 1000 MCG t} B12 1000 MCG Probiotic - Probiotic - No Probiotic - Multivitami Multivitami No 1{table QD Multivitam n - n - t} in - Metoprolol Metoprolol No Metoprolol Tartrate 50 Tartrate 50 Tartrate MG MG 50 MG Fish Oil Fish Oil No 1{capsu QD Fish Oil 1000 MG 1000 MG le} 1000 MG Rosuvastati Rosuvastati No 1{table Rosuvastat n Calcium 5 n Calcium 5 t} in Calcium MG MG 5 MG Magnesium Magnesium No 1{table QD Magnesium Oxide 250 Oxide 250 t_as_ne Oxide 250 MG MG eded} MG Dialyvite Dialyvite No 1{table QD Dialyvite 800 0.8 MG 800 0.8 MG t} 800 0.8 MG Ezetimibe Ezetimibe No Ezetimibe 10 MG 10 MG 10 MG Aspirin 81 Aspirin 81 No 1{table QD Aspirin 81 MG MG t} MG amLODIPine amLODIPine No amLODIPine Besylate 5 Besylate 5 Besylate 5 MG MG MG Iron 325 Iron 325 No QD Iron 325 (65 Fe) MG (65 Fe) MG (65 Fe) MG Vitamin B12 Vitamin B12 No 1{table QD Vitamin 1000 MCG 1000 MCG t} B12 1000 MCG Dialyvite Dialyvite No 1{table QD Dialyvite 800 0.8 MG 800 0.8 MG t} 800 0.8 MG Metoprolol Metoprolol No Metoprolol Tartrate 50 Tartrate 50 Tartrate MG MG 50 MG Rosuvastati Rosuvastati No 1{table Rosuvastat n Calcium 5 n Calcium 5 t} in Calcium MG MG 5 MG Vitamin B12 Vitamin B12 No 1{table QD Vitamin 1000 MCG 1000 MCG t} B12 1000 MCG Magnesium Magnesium No 1{table QD Magnesium Oxide 250 Oxide 250 t_as_ne Oxide 250 MG MG eded} MG Multivitami Multivitami No 1{table QD Multivitam n - n - t} in - Fish Oil Fish Oil No 1{capsu QD Fish Oil 1000 MG 1000 MG le} 1000 MG Aspirin 81 Aspirin 81 No 1{table QD Aspirin 81 MG MG t} MG Immunizations Ordered Immunization Filled Immunization Date Status Commen ts Source Name Name FLUZONE HIGH DOSE FLUZONE HIGH DOSE 2022-05-03 Completed [facility] OVER 65 OVER 65 15:02:00 - [facility] FLUZONE HIGH DOSE FLUZONE HIGH DOSE 2022-05-03 Completed [facility] OVER 65 OVER 65 15:02:00 - [facility] FLUZONE HIGH DOSE FLUZONE HIGH DOSE 2022-05-03 Completed [facility] OVER 65 OVER 65 15:02:00 - [facility] FLUZONE HIGH DOSE FLUZONE HIGH DOSE 2022-05-03 Completed [facility] OVER 65 OVER 65 15:02:00 - [facility] Prevnar 20 (PCV20) Prevnar 20 (PCV20) 2022-01-29 Completed [facility] 13:54:00 - [facility] Prevnar 20 (PCV20) Prevnar 20 (PCV20) 2022-01-29 Completed [facility] 13:54:00 [facility] Prevnar 20 (PCV20) Prevnar 20 (PCV20) 2022-01-29 Completed [facility] 13:54:00 - [facility] Prevnar 20 (PCV20) Prevnar 20 (PCV20) 2022-01-29 Completed [facility] 13:54:00 - [facility] Prevnar 20 (PCV20) Prevnar 20 (PCV20) 2022-01-29 Completed [facility] 13:54:00 - [facility] Prevnar 20 (PCV20) Prevnar 20 (PCV20) 2022-01-29 Completed [facility] 13:54:00 [facility] Prevnar 20 (PCV20) Prevnar 20 (PCV20) 2022-01-29 Completed [facility] 13:54:00 [facility] Prevnar 20 (PCV20) Prevnar 20 (PCV20) 2022-01-29 Completed [facility] 13:54:00 - [facility] Prevnar 20 (PCV20) Prevnar 20 (PCV20) 2022-01-29 Completed [facility] 13:54:00 - [facility] Prevnar 20 (PCV20) Prevnar 20 (PCV20) 2022-01-29 Completed [facility] 13:54:00 - [facility] Moderna COVID-19 Moderna COVID-19 2020-10-12 Completed [facility] 10:20:00 - [facility] Moderna COVID-19 Moderna COVID-19 2020-10-12 Completed [facility] 10:20:00 - [facility] Moderna COVID-19 Moderna COVID-19 2020-10-12 Completed [facility] 10:20:00 - [facility] Moderna COVID-19 Moderna COVID-19 2020-10-12 Completed [facility] 10:20:00 - [facility] Moderna COVID-19 Moderna COVID-19 2020-10-12 Completed [facility] 10:20:00 - [facility] Moderna COVID-19 Moderna COVID-19 2020-10-12 Completed [facility] 10:20:00 - [facility] Moderna COVID-19 Moderna COVID-19 2020-10-12 Completed [facility] 10:20:00 - [facility] Moderna COVID-19 Moderna COVID-19 2020-10-12 Completed [facility] 10:20:00 - [facility] Moderna COVID-19 Moderna COVID-19 2020-10-12 Completed [facility] 10:20:00 - [facility] Moderna COVID-19 Moderna COVID-19 2020-10-12 Completed [facility] 10:20:00 - [facility] Moderna COVID-19 Moderna COVID-19 2020-10-12 Completed [facility] 10:20:00 - [facility] Moderna COVID-19 Moderna COVID-19 2020-10-12 Completed [facility] 10:20:00 - [facility] Moderna COVID-19 Moderna COVID-19 2020-10-12 Completed [facility] 10:20:00 - [facility] Moderna COVID-19 Moderna COVID-19 2020-10-12 Completed [facility] 10:20:00 - [facility] Moderna COVID-19 Moderna COVID-19 2020-10-12 Completed [facility] 10:20:00 - [facility] Moderna COVID-19 Moderna COVID-19 2020-10-12 Completed [facility] 10:20:00 - [facility] Moderna COVID-19 Moderna COVID-19 2020-10-12 Completed [facility] 10:20:00 - [facility] Moderna COVID-19 Moderna COVID-19 2020-10-12 Completed [facility] 10:20:00 - [facility] Moderna COVID-19 Moderna COVID-19 2020-10-12 Completed [facility] 10:20:00 - [facility] Moderna COVID-19 Moderna COVID-19 2020-10-12 Completed [facility] 10:20:00 - [facility] Moderna COVID-19 Moderna COVID-19 2020-09-14 Completed [facility] 10:20:00 - [facility] Moderna COVID-19 Moderna COVID-19 2020-09-14 Completed [facility] 10:20:00 - [facility] Moderna COVID-19 Moderna COVID-19 2020-09-14 Completed [facility] 10:20:00 - [facility] Moderna COVID-19 Moderna COVID-19 2020-09-14 Completed [facility] 10:20:00 - [facility] Moderna COVID-19 Moderna COVID-19 2020-09-14 Completed [facility] 10:20:00 - [facility] Moderna COVID-19 Moderna COVID-19 2020-09-14 Completed [facility] 10:20:00 - [facility] Moderna COVID-19 Moderna COVID-19 2020-09-14 Completed [facility] 10:20:00 - [facility] Moderna COVID-19 Moderna COVID-19 2020-09-14 Completed [facility] 10:20:00 - [facility] Moderna COVID-19 Moderna COVID-19 2020-09-14 Completed [facility] 10:20:00 - [facility] Moderna COVID-19 Moderna COVID-19 2020-09-14 Completed [facility] 10:20:00 - [facility] Moderna COVID-19 Moderna COVID-19 2020-09-14 Completed [facility] 10:20:00 - [facility] Moderna COVID-19 Moderna COVID-19 2020-09-14 Completed [facility] 10:20:00 - [facility] Moderna COVID-19 Moderna COVID-19 2020-09-14 Completed [facility] 10:20:00 - [facility] Moderna COVID-19 Moderna COVID-19 2020-09-14 Completed [facility] 10:20:00 - [facility] Moderna COVID-19 Moderna COVID-19 2020-09-14 Completed [facility] 10:20:00 - [facility] Moderna COVID-19 Moderna COVID-19 2020-09-14 Completed [facility] 10:20:00 - [facility] Moderna COVID-19 Moderna COVID-19 2020-09-14 Completed [facility] 10:20:00 - [facility] Moderna COVID-19 Moderna COVID-19 2020-09-14 Completed [facility] 10:20:00 - [facility] Moderna COVID-19 Moderna COVID-19 2020-09-14 Completed [facility] 10:20:00 - [facility] Moderna COVID-19 Moderna COVID-19 2020-09-14 Completed [facility] 10:20:00 [facility] Afluria single dose Afluria single dose 2020-04-07 Completed [facility] 10:29:00 [facility] Afluria single dose Afluria single dose 2020-04-07 Completed [facility] 10:29:00 [facility] Afluria single dose Afluria single dose 2020-04-07 Completed [facility] 10:29:00 [facility] Afluria single dose Afluria single dose 2020-04-07 Completed [facility] 10:29:00 [facility] Afluria single dose Afluria single dose 2020-04-07 Completed [facility] 10:29:00 [facility] Afluria single dose Afluria single dose 2020-04-07 Completed [facility] 10:29:00 [facility] Afluria single dose Afluria single dose 2020-04-07 Completed [facility] 10:29:00 [facility] Afluria single dose Afluria single dose 2020-04-07 Completed [facility] 10:29:00 [facility] Afluria single dose Afluria single dose 2020-04-07 Completed [facility] 10:29:00 [facility] Afluria single dose Afluria single dose 2020-04-07 Completed [facility] 10:29:00 [facility] Afluria single dose Afluria single dose 2020-04-07 Completed [facility] 10:29:00 [facility] Afluria single dose Afluria single dose 2020-04-07 Completed [facility] 10:29:00 [facility] Afluria single dose Afluria single dose 2020-04-07 Completed [facility] 10:29:00 [facility] Afluria single dose Afluria single dose 2020-04-07 Completed [facility] 10:29:00 [facility] Afluria single dose Afluria single dose 2020-04-07 Completed [facility] 10:29:00 [facility] Afluria single dose Afluria single dose 2020-04-07 Completed [facility] 10:29:00 [facility] Afluria single dose Afluria single dose 2020-04-07 Completed [facility] 10:29:00 - [facility] Afluria single dose Afluria single dose 2020-04-07 Completed [facility] 10:29:00 - [facility] Afluria single dose Afluria single dose 2020-04-07 Completed [facility] 10:29:00 - [facility] Afluria single dose Afluria single dose 2020-04-07 Completed [facility] 10:29:00 - [facility] Afluria single dose Afluria single dose 2020-04-07 Completed [facility] 10:29:00 - [facility] Afluria single dose Afluria single dose 2020-04-07 Completed [facility] 10:29:00 [facility] Vital Signs Vital Name Observation Time Observation Value Comments Source height 2022-05-03 13:00:00 68 [in_i] [facility] weight 2022-05-03 13:00:00 189.8 [lb_av] [facility] temperature 2022-05-03 13:00:00 97.0 [degF] [facility] bmi 2022-05-03 13:00:00 28.86 kg/m2 [facility] oximetry 2022-05-03 13:00:00 98 % [facility] respiratory rate 2022-05-03 13:00:00 16 /min Comm on [facility] blood pressure 2022-05-03 13:00:00 135 mm[Hg] [facility] - systolic [facility] blood pressure 2022-05-03 13:00:00 66 mm[Hg] [facility] - diastolic [facility] height 2022-04-08 14:00:00 68 [in_i] [facility] weight 2022-04-08 14:00:00 196.2 [lb_av] [facility] temperature 2022-04-08 14:00:00 97.2 [degF] [facility] bmi 2022-04-08 14:00:00 29.83 kg/m2 [facility] oximetry 2022-04-08 14:00:00 98 % [facility] respiratory rate 2022-04-08 14:00:00 16 /min Comm on [facility] blood pressure 2022-04-08 14:00:00 120 mm[Hg] [facility] - systolic [facility] blood pressure 2022-04-08 14:00:00 70 mm[Hg] [facility] - diastolic [facility] height 2022-01-29 13:00:00 68 [in_i] [facility] weight 2022-01-29 13:00:00 196.2 [lb_av] [facility] temperature 2022-01-29 13:00:00 98.6 [degF] [facility] bmi 2022-01-29 13:00:00 29.83 kg/m2 [facility] oximetry 2022-01-29 13:00:00 96 % [facility] respiratory rate 2022-01-29 13:00:00 17 /min Comm on [facility] blood pressure 2022-01-29 13:00:00 120 mm[Hg] [facility] - systolic [facility] blood pressure 2022-01-29 13:00:00 60 mm[Hg] [facility] - diastolic [facility] height 2022-01-29 14:00:00 68 [in_i] [facility] weight 2022-01-29 14:00:00 196.2 [lb_av] [facility] temperature 2022-01-29 14:00:00 98.6 [degF] [facility] bmi 2022-01-29 14:00:00 29.83 kg/m2 [facility] oximetry 2022-01-29 14:00:00 96 % [facility] respiratory rate 2022-01-29 14:00:00 17 /min Comm on [facility] blood pressure 2022-01-29 14:00:00 120 mm[Hg] [facility] - systolic [facility] blood pressure 2022-01-29 14:00:00 60 mm[Hg] [facility] - diastolic [facility] height 2021-10-29 11:20:00 68 [in_i] [facility] weight 2021-10-29 11:20:00 197.0 [lb_av] [facility] temperature 2021-10-29 11:20:00 97.3 [degF] [facility] bmi 2021-10-29 11:20:00 29.95 kg/m2 [facility] oximetry 2021-10-29 11:20:00 98 % [facility] respiratory rate 2021-10-29 11:20:00 15 /min Comm on [facility] blood pressure 2021-10-29 11:20:00 129 mm[Hg] [facility] - systolic [facility] blood pressure 2021-10-29 11:20:00 68 mm[Hg] [facility] - diastolic [facility] height 2021-07-27 15:40:00 68 [in_i] [facility] weight 2021-07-27 15:40:00 191.8 [lb_av] [facility] [facility] temperature 2021-07-27 15:40:00 97.8 [degF] [facility] bmi 2021-07-27 15:40:00 29.16 kg/m2 Common S [facility] oximetry 2021-07-27 15:40:00 98 % Common S [facility] respiratory rate 2021-07-27 15:40:00 16 /min Comm on [facility] blood pressure 2021-07-27 15:40:00 120 mm[Hg] Common [facility] - systolic [facility] blood pressure 2021-07-27 15:40:00 76 mm[Hg] Common [facility] - diastolic [facility] height 2021-06-14 10:20:00 68 [in_i] Common S pirit - [facility] weight 2021-06-14 10:20:00 189 [lb_av] Common S pirit [facility] temperature 2021-06-14 10:20:00 97 [degF] Common S pirit [facility] bmi 2021-06-14 10:20:00 28.73 kg/m2 Common S pirit - [facility] oximetry 2021-06-14 10:20:00 96 % Common [facility] blood pressure 2021-06-14 10:20:00 122 mm[Hg] Common [facility] - systolic [facility] blood pressure 2021-06-14 10:20:00 80 mm[Hg] Common [facility] - diastolic [facility] height 2021-06-14 10:00:00 68 [in_i] Common pirit [facility] weight 2021-06-14 10:00:00 189.0 [lb_av] Common [facility] temperature 2021-06-14 10:00:00 97.0 [degF] Common pirit [facility] bmi 2021-06-14 10:00:00 28.73 kg/m2 [facility] oximetry 2021-06-14 10:00:00 96 % [facility] respiratory rate 2021-06-14 10:00:00 18 /min Comm on [facility] blood pressure 2021-06-14 10:00:00 122 mm[Hg] Common [facility] - systolic [facility] blood pressure 2021-06-14 10:00:00 80 mm[Hg] Common [facility] - diastolic [facility] Procedures This patient has no known procedures. Plan of Care Planned Activity Planned Date Details Comments Source Future Scheduled 2022 COVID-19 VACCINE (#1) [facility] Test 14:26:07 [code = COVID-19 VACCINE (#1)] Future Scheduled 2022 BREAST CANCER [facility] Test 14:26:07 SCREENING [code = BREAST CANCER SCREENING] Future Scheduled [address] [facility] Test 14:26:07 [code = COLONOSCOPY SCREENING] Future Scheduled 2022 SHINGLES VACCINES (1 Met [facility] Test 14:26:07 of 2) [code = SHINGLES VACCINES (1 of 2)] Future Scheduled 2022 65+ PNEUMOCOCCAL [facility] Test 14:26:07 VACCINE (1 - PCV) [code = 65+ PNEUMOCOCCAL VACCINE (1 - PCV)] Future Scheduled 2022 INFLUENZA VACCINE [facility] Test 14:26:07 [code = INFLUENZA VACCINE] Future Scheduled 2022-03-01 HEPATITIS B VACCINES Met [facility] Test 07:53:17 (1 of 3 - 3-dose series) [code = HEPATITIS B VACCINES (1 of 3 - 3-dose series)] Future Scheduled 2022-03-01 COVID-19 VACCINE (#1) [facility] Test 07:53:17 [code = COVID-19 VACCINE (#1)] Future Scheduled 2022-03-01 Hepatitis C screening [facility] Test 07:53:17 (procedure) [code = 999484465] Future Scheduled 2022-03-01 Screening for [facility] Test 07:53:17 malignant neoplasm of cervix (procedure) [code = [id number]] Future Scheduled 2022-03-01 BREAST CANCER [facility] Test 07:53:17 SCREENING [code = BREAST CANCER SCREENING] Future Scheduled 2022-03-[address] [facility] Test 07:53:17 [code = COLONOSCOPY SCREENING] Future Scheduled 2022-03-01 SHINGLES VACCINES (1 Met [facility] Test 07:53:17 of 2) [code = SHINGLES VACCINES (1 of 2)] Future Scheduled 2022-03-01 65+ PNEUMOCOCCAL [facility] Test 07:53:17 VACCINE (1 - PCV) [code = 65+ PNEUMOCOCCAL VACCINE (1 - PCV)] Future Scheduled 2022-03-01 INFLUENZA VACCINE Method [facility] Test 07:53:17 [code = INFLUENZA VACCINE] Encounters Start End Encounter Admission Attending Care Care Encounter Source Date/Time Date/Time Type Type Clinicians Facility Department ID 2022-07-04 Outpatient Gómez, STLMLC STLMLC [id number] Common 10:57:00 Reva [id number] [facility] 2022-05-02 Outpatient Sky, Na STLMLC STLMLC [id number] Common 11:15:00 [facility] 2022-05-01 Outpatient Sky, Na STLMLC STLMLC [id number] 2 Common 14:05:01 [facility] 2021-07-26 Outpatient Sky, Na STLMLC STLMLC [id number] 2 Common 10:28:00 [facility] 2021-07-25 Outpatient Sky, Na STLMLC STLMLC [id number] 2 Common 14:39:42 [facility] 2021-07-25 Outpatient Sky, Na STLMLC STLMLC [id number] 2 Common 14:25:42 [id number] [facility] 2021-07-25 Outpatient Sky, Na STLMLC STLMLC [id number] 2 Common 13:42:47 [id number] [facility] 2021-07-25 Outpatient Sky, Na STLMLC STLMLC [id number] 2 Common 13:35:56 [facility] 2021-07-25 Outpatient Sky, Na STLMLC STLMLC [id number] 2 Common 13:35:19 [facility] 2021-07-25 Outpatient Sky, Na STLMLC STLMLC [id number] 2 Common 13:33:31 [facility] 2021-07-25 Outpatient Sky, Na STLMLC STLMLC [id number] 2 Common 12:37:54 [facility] 2021-07-25 Outpatient Sky, Na STLMLC STLMLC [id number] 2 Common 12:36:37 [facility] 2021-07-25 Outpatient Sky, Na STLMLC STLMLC [id number] 2 Common 12:31:16 [id number] [facility] 2021-07-25 Outpatient Sky, Na STLMLC STLMLC [id number] 2 Common 12:29:04 [id number] [facility] 2021-07-25 Outpatient Sky, Na STLMLC STLMLC [id number] 2 Common 12:02:51 [id number] [facility] 2021-07-25 Outpatient Sky, Na STLMLC STLMLC [id number] 2 Common 12:02:34 [id number] [facility] 2021-07-25 Outpatient Sky, Na STLMLC STLMLC [id number] 2 Common 11:53:19 [id number] [facility] 2021-07-25 Outpatient Sky, Na STLMLC STLMLC [id number] 2 Common 11:52:43 [id number] [facility] 2021-07-25 Outpatient Sky, Na STLMLC STLMLC [id number] 2 Common 11:49:23 [id number] [facility] 2021-07-25 Outpatient Sky, Na STLMLC STLMLC [id number] 2 Common 11:30:49 [id number] [facility] 2021-07-25 Outpatient Sky, Na STLMLC STLMLC [id number] 2 Common 11:21:10 [id number] [facility] 2021-07-25 Outpatient Sky, Na STLMLC STLMLC [id number] 2 Common 11:06:43 [id number] [facility] 2021-07-25 Outpatient Sky, Na STLMLC STLMLC [id number] 2 Common 10:59:51 [id number] [facility] 2022-07-17 2022-07-17 (TEL) STLMLC STLMLC [id number] Co mmon 00:00:00 00:00:00 [facility] 2022-06-19 2022-06-19 (TEL) STLMLC STLMLC [id number] Co mmon 00:00:00 00:00:00 [facility] 2022-05-20 2022-05-20 (TEL) STLMLC STLMLC [id number] Co mmon 00:00:00 00:00:00 [facility] - [facility] 2022-05-03 2022-05-03 OFFICE STLMLC STLMLC [id number] Co mmon 00:00:00 00:00:00 VISIT [facility] ESTAB PT - CHI LEVEL 4 [facility] 2022-04-14 2022-04-14 Outpatient DMG DMG [id number] [facility] 00:00:00 00:00:00 [id number] [facility] 2022-04-10 2022-04-10 (WEB) STLMLC STLMLC [id number] Co mmon 00:00:00 00:00:00 Spirit - [facility] 2022-04-08 2022-04-08 OFFICE STLMLC STLMLC [id number] Co mmon 00:00:00 00:00:00 VISIT EST Spir it PT LEVEL 3 - [facility] 2022-04-04 2022-04-04 (TEL) STLMLC STLMLC [id number] Co mmon 00:00:00 00:00:00 [facility] 2022-03-14 2022-03-14 (WEB) STLMLC STLMLC [id number] Co mmon 00:00:00 00:00:00 [facility] 2022-01-29 2022-01-29 SUB ANNUAL STLMLC STLMLC [id number] Common 00:00:00 00:00:00 MCR [facility] WELLNESS - CHI VISIT [facility] 2022-01-29 2022-01-29 OFFICE STLMLC STLMLC [id number] Co mmon 00:00:00 00:00:00 VISIT EST Spir it PT LEVEL 3 - [facility] 2021-11-07 2021-11-07 (WEB) STLMLC STLMLC [id number] Co mmon 00:00:00 00:00:00 [facility] 2021-10-29 2021-10-29 OFFICE STLMLC STLMLC [id number] Co mmon 00:00:00 00:00:00 VISIT [facility] PT - CHI LEVEL 4 [facility] 2021-10-08 2021-10-08 (WEB) STLMLC STLMLC [id number] Co mmon 00:00:00 00:00:00 [facility] 2021-10-01 2021-10-01 (TEL) STLMLC STLMLC [id number] Co mmon 00:00:00 00:00:00 [facility] 2021-08-22 2021-08-22 (TEL) STLMLC STLMLC [id number] Co mmon 00:00:00 00:00:00 [facility] 2021-08-17 2021-08-17 (TEL) STLMLC STLMLC [id number] Co mmon 00:00:00 00:00:00 [facility] 2021-07-27 2021-07-27 OFFICE STLMLC STLMLC [id number] Co mmon 00:00:00 00:00:00 VISIT EST Spir it PT LEVEL [address] [place] [address] 2021-06-14 2021-06-14 OFFICE STLMLC STLMLC [id number] Co mmon 00:00:00 00:00:00 VISIT EST Spir it PT LEVEL [address] [place] [address] 2021-06-14 2021-06-14 (WELLNESS) STLMLC STLMLC [id number] Common 00:00:00 00:00:00 Wellness Spiri t [facility] 2021-04-30 2021-04-30 (WEB) STLMLC STLMLC [id number] Co mmon 00:00:00 00:00:00 [facility] 2021-04-02 2021-04-02 (WEB) STLMLC STLMLC [id number] Co mmon 00:00:00 00:00:00 [facility] 2021-03-18 2021-03-18 (WEB) STLMLC STLMLC [id number] Co mmon 00:00:00 00:00:00 [facility] 2021-02-06 2021-02-06 Outpatient STLMLC STLMLC [id number] Common 00:00:00 00:00:00 [facility] 2020-11-09 2020-11-09 Outpatient STLMLC STLMLC [id number] Common 00:00:00 00:00:00 [facility] 2020-09-05 2020-09-05 Outpatient STLMLC STLMLC [id number] Common 00:00:00 00:00:00 [facility] 2020-08-29 2020-08-29 Outpatient STLMLC STLMLC [id number] Common 00:00:00 00:00:00 [facility] 2020-08-08 2020-08-08 Outpatient STLMLC STLMLC [id number] Common 00:00:00 00:00:00 [facility] 2020-05-15 2020-05-15 Outpatient STLMLC STLMLC [id number] Common 00:00:00 00:00:00 [facility] 2020-05-08 2020-05-08 Outpatient STLMLC STLMLC [id number] Common 00:00:00 00:00:00 [facility] 2020-04-07 2020-04-07 Outpatient STLMLC STLMLC [id number] Common 00:00:00 00:00:00 [facility] 2020-04-07 2020-04-07 Outpatient STLMLC STLMLC [id number] Common 00:00:00 00:00:00 [facility] 2020-01-07 2020-01-07 [facility] [id number] Common 09:40:00 09:40:[address] [facility] 2019-12-16 2019-12-16 [facility] [id number] Common 20:08:00 20:08:[address] [facility] 2019-11-08 2019-11-08 [facility] [id number] Common 15:00:00 15:00:[address] [facility] 2019-09-21 2019-09-21 [facility] [id number] Common 09:56:00 09:56:[address] [facility] 2019-09-13 2019-09-13 [facility] [id number] Common 14:20:00 14:20:[address] [facility] 2019-08-09 2019-08-09 [facility] [id number] Common 10:40:00 10:40:[address] [facility] 2019-06-13 2019-06-13 [facility] [id number] Common 03:03:00 03:03:[address] [facility] 2019-06-07 2019-06-07 [facility] [id number] Common 14:20:00 14:20:[address] [facility] 2019-05-17 2019-05-17 [facility] [id number] Common 13:45:00 13:45:[address] [facility] 2019-05-03 2019-05-03 [facility] [id number] Common 11:20:00 11:20:[address] [facility] 2019-02-15 2019-02-15 [facility] [id number] Common 08:15:00 08:15:[address] [facility] 2018-12-31 2018-12-31 [facility] [id number] Common 11:40:00 11:40:[address] [facility] 2018-12-21 2018-12-21 [facility] [id number] Common 14:21:00 14:21:[address] [facility] 2018-12-21 2018-12-21 [facility] [id number] Common 13:30:00 13:30:[address] [facility] Results This patient has no known results.
--- NOTE | 2022-07-23 00:14 | ER ---
Nurse's Notes [facility] Name: Tawana Wells Age: 67 yrs Sex: Female : 1955 Arrival Date: 07/22/2022 Time: 22:04 Bed 19 Private MD: Diagnosis: Dislocation of tooth, initial encounter;Nondisplaced fracture of distal pole of navicular [scaphoid] bone of left wrist, initial encounter for closed fracture;Nondisplaced fracture of left radial styloid process, initial encounter for closed fracture Presentation: 07/22 22:13 Chief complaint: EMS states: pt is a 67 year old female who fell around 4 PM this kd3 afternoon and hit her face on the concrete. Pt knocked out a tooth and is complaining of left sided facial pain and left arm pain. Pt denies LOC and is not on blood thinners. Coronavirus screen: Vaccine status: Patient reports receiving the 2nd dose of the covid vaccine. Ebola Screen: No symptoms or risks identified at this time. Initial Sepsis Screen: Does the patient meet any 2 criteria? No. Patient's initial sepsis screen is negative. Does the patient have a suspected source of infection? No. Patient's initial sepsis screen is negative. Risk Assessment: Do you want to hurt yourself or someone else? Patient reports no desire to harm self or others. Onset of symptoms was July 22, 2022. 22:13 Method Of Arrival: EMS: [facility] kd3 22:13 Acuity: RAYMOND 3 kd3 Triage Assessment: 22:15 General: Appears in no apparent distress. Behavior is calm, cooperative. Pain: kd3 Complains of pain in face and left arm. Neuro: Level of Consciousness is awake, alert, obeys commands, Oriented to person, place, time, situation. Respiratory: Airway is patent Trachea midline Respiratory effort is even, unlabored, Respiratory pattern is regular, symmetrical. Historical: - Allergies: 22:15 PENICILLINS; kd3 - Home Meds: 22:16 amlodipine oral [Active]; Aspirin Oral [Active]; Glimepiride Oral [Active]; Metoprolol kd3 Tartrate Oral [Active]; - PMHx: 22:15 Diabetes - NIDDM; ESRD; Hyperlipidemia; Hypertension; kd3 - PSHx: 22:15 L4 L5 fusion; Total abdominal hysterectomy; kd3 - Immunization history:: Adult Immunizations up to date, Client reports receiving the 2nd dose of the Covid vaccine. - Social history:: Smoking status: Patient denies any tobacco usage or history of. - Family history:: not pertinent. - Hospitalizations: : No recent hospitalization is reported. Screenin:17 [facility] ED Fall Risk Assessment (Adult) History of falling in the last 3 months, kd3 including since admission Yes- single mechanical fall (1 pt) Confusion or Disorientation No (0 pts) Intoxicated or Sedated No (0 pts) Impaired Gait No (0 pts) Mobility Assist Device Used No (0 pt) Altered Elimination No (0 pt) Score/Fall Risk Level 0 - 2 = Low Risk Oriented to surroundings. Abuse screen: Denies threats or abuse. Denies injuries from another. Nutritional screening: No deficits noted. Tuberculosis screening: No symptoms or risk factors identified. Assessment: 23:07 General: Appears in no apparent distress. Behavior is calm, cooperative. Pain: kd3 Complains of pain in left arm and face. Neuro: Level of Consciousness is awake, alert, obeys commands, Oriented to person, place, time, situation. Cardiovascular: Patient's skin is warm and dry. Respiratory: Airway is patent Trachea midline Respiratory effort is even, unlabored, Respiratory pattern is regular, symmetrical. GI: Abdomen is non-distended. Vital Signs: 22:13 BP 108 / 94; Pulse 76; Resp 19; Temp 98.2(O); Pulse Ox 100% on R/A; Weight 85.73 kg; kd3 Height 5 ft. 7 in. (170.18 cm); 23:02 BP 152 / 67; Pulse 75; Resp 16; Pulse Ox 98% ; kd3 23:55 BP 136 / 66; Pulse 74; Resp 16; Pulse Ox 99% on R/A; kd3 07/23 00:25 BP 126 / 94; Pulse 71; Resp 16; Pulse Ox 100% on R/A; kd3 07/22 22:13 Body Mass Index 29.60 (85.73 kg, 170.18 cm) kd3 Ong Coma Score: 00:01 Eye Response: spontaneous(4). Verbal Response: oriented(5). Motor Response: obeys rn commands(6). Total: 15. 00:10 Eye Response: spontaneous(4). Verbal Response: oriented(5). Motor Response: obeys rn commands(6). Total: 15. ED Course: 07/22 22:04 Patient arrived in ED. mw2 22:04 Remy Delgado MD is Attending Physician. rn 22:13 Taryn Garcia, SATISH is Primary Nurse. kd3 22:15 Triage completed. kd3 22:15 Arm band placed on right wrist. kd3 22:41 XRAY Hand LEFT 3 View In Process Unspecified. EDMS 22:46 CT Head C Spine In Process Unspecified. EDMS 22:46 CT Facial Bones W/O Con In Process Unspecified. EDMS 22:46 CT Abd/Pelvis - Without Contrast In Process Unspecified. EDMS 23:08 Patient has correct armband on for positive identification. kd3 07/23 00:13 Nba Watters MD is Referral Physician. rn 00:26 No provider procedures requiring assistance completed. Patient did not have IV access kd3 during this emergency room visit. Administered Medications: No medications were administered Medication: 07/22 23:08 VIS not applicable for this client. kd3 Outcome: 07/23 00:14 Discharge ordered by . rn 00:26 Discharged to home ambulatory. kd3 00:26 Condition: stable 00:26 Discharge instructions given to patient, Instructed on discharge instructions, follow up and referral plans. medication usage, Demonstrated understanding of instructions, follow-up care, medications. 00:26 Patient left the ED. kd3 Signatures: Dispatcher [employer] EDRemy Phillips MD MD rn Gatti, MyKena mw2 Taryn Garcia, SATISH RN kd3 Corrections: (The following items were deleted from the chart) 07/22 22:18 22:17 [facility] ED Fall Risk Assessment (Adult) History of falling in the last 3 months, kd3 including since admission No falls in past 3 months (0 pts) Confusion or Disorientation Yes (5 pts) Intoxicated or Sedated No (0 pts) Impaired Gait Yes (1 pt) Mobility Assist Device Used No (0 pt) Altered Elimination No (0 pt) Score/Fall Risk Level 3 or more points = High Risk Oriented to surroundings, Maintained a safe environment, Assessed \T\ reinforced patient's understanding of fall precautions, kd3
--- NOTE | 2022-07-23 00:14 | EDPHYS ---
Physician Documentation [facility] Name: Tawana Wells Age: 67 yrs Sex: Female : 1955 Arrival Date: 07/22/2022 Time: 22:04 Bed 19 Private MD: ED Physician Remy Delgado HPI: 07/23 00:01 This 67 yrs old Female presents to ER via EMS with complaints of fall, facial injury. rn 00:01 The patient or guardian reports injury, pain. The complaints affect the left eye and rn mouth. Onset: The symptoms/episode began/occurred at 16:00. Associated signs and symptoms: Loss of consciousness: This patient did not experience any loss of consciousness. Pertinent positives: headache, Pertinent negatives: the patient has not experienced a loss of conciousness, seizure, shortness of breath, vomiting. Severity of symptoms: At their worst the symptoms were moderate, in the emergency department the symptoms are unchanged. The patient has not experienced similar symptoms in the past. The patient has not recently seen a physician. Pt reports fall, tripped when turning, fell and hit face on concrete, no LOC, not on blood thinners, happened at 4pm and presents 6 hours after fall. Left upper front tooth knocked out on fall, placed in bag dry and without solution. . Historical: - Allergies: 07/22 22:15 PENICILLINS; kd3 - Home Meds: 22:16 amlodipine oral [Active]; Aspirin Oral [Active]; Glimepiride Oral [Active]; Metoprolol kd3 Tartrate Oral [Active]; - PMHx: 22:15 Diabetes - NIDDM; ESRD; Hyperlipidemia; Hypertension; kd3 - PSHx: 22:15 L4 L5 fusion; Total abdominal hysterectomy; kd3 - Immunization history:: Adult Immunizations up to date, Client reports receiving the 2nd dose of the Covid vaccine. - Social history:: Smoking status: Patient denies any tobacco usage or history of. - Family history:: not pertinent. - Hospitalizations: : No recent hospitalization is reported. ROS: 07/23 00:01 Constitutional: Negative for fever, chills, and weight loss, Eyes: Negative for injury, rn pain, redness, and discharge, ENT: + facial and dental pain Neck: Negative for injury, pain, and swelling, Cardiovascular: Negative for chest pain, palpitations, and edema, Respiratory: Negative for shortness of breath, cough, wheezing, and pleuritic chest pain, Abdomen/GI: + left lower abd pain Back: Negative for injury and pain, MS/Extremity: + left hand injury and pain Skin: Negative for injury, rash, and discoloration, Neuro: + headache Exam: 00:01 Constitutional: This is a well developed, well nourished patient who is awake, alert, rn and in no acute distress. Head/Face: + mild left periorbital swelling and ecchymosis Eyes: Pupils equal round and reactive to light, extra-ocular motions ENT: + left upper front tooth and lateral incisor missing, only front tooth appears acute/traumatic. Neck: NO midline tenderness Chest/axilla: Normal chest wall appearance and motion. Nontender with no deformity. No lesions are appreciated. Cardiovascular: Regular rate and rhythm. No pulse deficits. Respiratory: No increased work of breathing, no retractions or nasal flaring. Abdomen/GI: soft, mild LLQ tenderness Skin: Warm, dry with normal turgor. Normal color with no rashes, no lesions, and no evidence of cellulitis. MS/ Extremity: Pulses equal, no cyanosis. Neurovascular intact. + mild painful ROM left hand and tender at base of 5th/4th digits. No ecchymosis. No gross tenderness at wrist. + thrill LUE. Neuro: Awake and alert, GCS 15, oriented to person, place, time, and situation. Cranial nerves II-XII grossly intact. Motor strength 5/5 in all extremities. Sensory grossly intact. Vital Signs: 07/22 22:13 BP 108 / 94; Pulse 76; Resp 19; Temp 98.2(O); Pulse Ox 100% on R/A; Weight 85.73 kg; kd3 Height 5 ft. 7 in. (170.18 cm); 23:02 BP 152 / 67; Pulse 75; Resp 16; Pulse Ox 98% ; kd3 23:55 BP 136 / 66; Pulse 74; Resp 16; Pulse Ox 99% on R/A; kd3 07/23 00:25 BP 126 / 94; Pulse 71; Resp 16; Pulse Ox 100% on R/A; kd3 07/22 22:13 Body Mass Index 29.60 (85.73 kg, 170.18 cm) kd3 Jonathon Coma Score: 00:01 Eye Response: spontaneous(4). Verbal Response: oriented(5). Motor Response: obeys rn commands(6). Total: 15. 00:10 Eye Response: spontaneous(4). Verbal Response: oriented(5). Motor Response: obeys rn commands(6). Total: 15. MDM: 07/22 22:04 Patient medically screened. rn 07/23 00:01 Differential diagnosis: Contusion of Hematoma on Intracranial bleed- Concussion left rn hand/wrist fracture. 00:10 Data reviewed: vital signs, nurses notes, radiologic studies, CT scan, plain films, and rn as a result, I will discharge patient. Counseling: I had a detailed discussion with the patient and/or guardian regarding: the historical points, exam findings, and any diagnostic results supporting the discharge/admit diagnosis, radiology results, the need for outpatient follow up, to return to the emergency department if symptoms worsen or persist or if there are any questions or concerns that arise at home. Special discussion: I discussed with the patient/guardian in detail that at this point there is no indication for admission to the hospital. It is understood, however, that if the symptoms persist or worsen the patient needs to return immediately for re-evaluation. Based on the history and exam findings, there is no indication for further emergent testing or inpatient evaluation. I discussed with the patient/guardian the need to see a dentist for further evaluation of the symptoms. I discussed with the patient/guardian the need to see the orthopedic surgeon for further evaluation of the symptoms. ED course: Pt with traumatic loss of tooth, was out too long to place back in, had been out for 6 hours and dry in a a bag. Patient understands this and states dentist was planning on "pulling that one anyway". Xray left hand shows questionable scaphoid and radial fracture, pt splinted and will f/u with ortho for repeat images. Otherwise, no acute intracranial findings and will dc home with return precautions. . 07/22 22:13 Order name: CT Head C Spine rn 07/22 22:13 Order name: CT Facial Bones W/O Con rn 07/22 22:13 Order name: CT Abd/Pelvis - Without Contrast rn 07/22 22:13 Order name: XRAY Hand LEFT 3 View rn 07/22 23:39 Order name: Splint - Thumb Spica; Complete Time: 23:54 rn Administered Medications: No medications were administered Disposition Summary: 07/23/22 00:14 Discharge Ordered Location: Home rn Problem: new rn Symptoms: have improved rn Condition: Stable rn Diagnosis - Dislocation of tooth, initial encounter rn - Nondisplaced fracture of distal pole of navicular [scaphoid] bone of left wrist, rn initial encounter for closed fracture - Nondisplaced fracture of left radial styloid process, initial encounter for closed rn fracture Followup: rn - With: Nba Watters MD - When: 5 - 6 days - Reason: Recheck today's complaints, Re-evaluation by your physician Discharge Instructions: - Discharge Summary Sheet rn - Cast or Splint Care, Adult rn - Scaphoid Fracture rn - Radial Fracture rn - Tooth Avulsion rn - Tooth Displacement rn Forms: - Medication Reconciliation Form rn - Thank You Letter rn - Antibiotic pacu rn - Prescription Opioid Use rn Prescriptions: - Tramadol 50 mg Oral Tablet - take 1 tablet by ORAL route every 8 hours as needed; 12 tablet; Refills: 0, rn Product Selection Permitted Signatures: Dispatcher [employer] EDMS Remy Delgado MD MD rn Doucette, Kyli, RN RN kd3 Corrections: (The following items were deleted from the chart) 00:08 00:01 Constitutional: This is a well developed, well nourished patient who is awake, rn alert, and in no acute distress. Head/Face: + mild left periorbital swelling and ecchymosis Eyes: Pupils equal round and reactive to light, extra-ocular motions ENT: + left upper front tooth and lateral incisor missing, only front tooth appears acute/traumatic. Neck: NO midline tenderness Chest/axilla: Normal chest wall appearance and motion. Nontender with no deformity. No lesions are appreciated. Cardiovascular: Regular rate and rhythm. No pulse deficits. Respiratory: No increased work of breathing, no retractions or nasal flaring. Abdomen/GI: soft, mild LLQ tenderness Skin: Warm, dry with normal turgor. Normal color with no rashes, no lesions, and no evidence of cellulitis. MS/ Extremity: Pulses equal, no cyanosis. Neurovascular intact. + mild painful ROM left hand and tender at base of 5th/4th digits. No ecchymosis. No gross tenderness at wrist. Neuro: Awake and alert, GCS 15, oriented to person, place, time, and situation. Cranial nerves II-XII grossly intact. Motor strength 5/5 in all extremities. Sensory grossly intact. rn
[2022-07-23 02:36] VITALS: TEMP 98.2
[2022-07-23 02:40] VITALS: BP 126/94; O2SAT 100
--- NOTE | 2022-07-23 09:26 | RAD REPORT ---
EXAM DESCRIPTION: CT - Abdomen Pelvis Wo Contrast - 07/23/2022 6:44 am CLINICAL HISTORY: 67 years Female fall, left sided abd pain, ESRD COMPARISON: None TECHNIQUE: Images were obtained in axial, sagittal, and coronal planes. No intravenous contrast was administered. This exam was performed according to our departmental dose-optimization program which includes use of Automated Exposure Control, adjustment of the mA and/or kV according to patient size and/or use of i terative reconstruction technique. FINDINGS: No abnormality involving the liver, spleen, pancreas, or adrenal glands bilaterally. Previ ously identified low-attenuation foci involving the liver unchanged. Suspected sludge within the gall bladder. 8 mm splenic artery aneurysm. No obstructing renal or ureteral calculi bilaterally. Mild right hydronephrosis. No left hydronephros is. Unremarkable bladder. Appendix within normal limits. No bowel obstruction, perforation, or inflammation. Moderate diverticu losis distal left colon with no associated inflammatory change. No dilatation of abdominal aorta. No adenopathy or abnormal fluid collections seen. No acute osseous abnormality. Postsurgical changes with metallic fixation L4-5. Additional postsurgic al change L5-S1. No abnormality lower lungs bilaterally. No acute osseous abnormality. IMPRESSION: No acute intra-abdominal abnormality. Mild right hydronephrosis with no obstructing benjamin l or ureteral calculus seen. Findings overall stable when correlated with the prior study. Electronically signed by: Clara Gomez MD 07/22/2022 11:01 PM ASSEMBLER BILLIARD TABLE Due to temporary technical issues with the PACS/Fluency reporting system, reports are being signed by the in house radiologists without review as a courtesy to insure prompt reporting. The interpreting radiologist is fully responsible for the content of the report
--- NOTE | 2022-07-23 09:41 | RAD REPORT ---
EXAM DESCRIPTION: CT - Facial Bones W/ Mpr - 07/23/2022 6:43 am CLINICAL HISTORY: 67 years Female facial injury COMPARISON: None TECHNIQUE: Images were obtained in axial, sagittal, and coronal planes. This exam was performed according to our departmental dose-optimization program which includes use of Automated Exposure Control, adjustment of the mA and/or kV according to patient size and/or use of i terative reconstruction technique. FINDINGS: No nasal bone fracture. Anterior maxillary spine is intact. No fractures or orbits bilaterally. Intact globes bilaterally. No intraconal or extraconal abnormalit ies seen. Zygomatic arches intact bilaterally. Mild mucosal thickening paranasal sinuses. No air-flui d levels seen. Pterygoid plates intact bilaterally. No mandibular fracture. Metallic artifact in region of teeth. Le ft upper medial incisor identified within the left maxilla. Absent left upper lateral incisor. Symmet asia aeration mastoid air cells bilaterally. No abnormality visualized intracranial structures or visualized cervical spine. IMPRESSION: Abnormal appearance left upper medial and lateral incisors. Clinical correlation needed to determine whether these findings are related to posttraumatic change. Otherwise no acute fracture or dislocation seen. Electronically signed by: Clara Gomez MD 07/22/2022 11:20 PM TOW MOTOR MECHANIC Due to temporary technical issues with the PACS/Fluency reporting system, reports are being signed by the in house radiologists without review as a courtesy to insure prompt reporting. The interpreting radiologist is fully responsible for the content of the report
--- NOTE | 2022-07-23 09:49 | RAD REPORT ---
EXAM DESCRIPTION: CT - [id number] - 07/23/2022 6:43 am CLINICAL HISTORY: 67 years Female fall, head injury COMPARISON: None TECHNIQUE: Images were obtained in axial, sagittal, and coronal planes. This exam was performed according to our departmental dose-optimization program which includes use of Automated Exposure Control, adjustment of the mA and/or kV according to patient size and/or use o f iterative reconstruction technique. FINDINGS: CT brain: Ventricular system appears normal. No abnormal areas of increased attenuation se en. No extra-axial fluid collections noted. No evidence for skull fracture. Unremarkable paranasal si nuses. Symmetric aeration mastoid air cells bilaterally. CT cervical spine: Height of the vertebral bodies is intact. Satisfactory alignment articular facets. Mild anterior osteophyte formation multiple levels. Marginal spur formation with neural foraminal na rrowing bilaterally C5-C6 and C6-7 levels. The findings are most pronounced at C5-6. Intact odontoid and predental space. Prevertebral soft tissues appear normal. Intact C1. Posterior elements intact al l levels. Chronic changes lung apices bilaterally. No focal disc protrusion. IMPRESSION: CT brain: No acute intracranial abnormality. No evidence for hemorrhage, mass lesion, or large acute infarction. CT cervical spine: No acute fracture or subluxation. Mild to moderate multilevel osteoarthritic lilly young Electronically signed by: Clara Gomez MD 07/22/2022 11:12 PM TECHNICAL DESIGNER Due to temporary technical issues with the PACS/Fluency reporting system, reports are being signed by the in house radiologists without review as a courtesy to insure prompt reporting. The interpreting radiologist is fully responsible for the content of the report.
--- NOTE | 2022-07-23 09:52 | RAD REPORT ---
EXAM DESCRIPTION: RAD - Hand Left 3 View - 07/22/2022 10:39 pm CLINICAL HISTORY: The patient is 67 years old and is Female; PAIN [facility] MAIN TECHNIQUE: Frontal, lateral and oblique views of the left hand. COMPARISON: No relevant prior studies available. FINDINGS: BONES/JOINTS: Positional artifact versus nondisplaced fractures of the left scaphoid an d radial styloid (only appreciated on frontal view). Surgical clips noted in the dorsal and ventral radial distal left forearm soft tissues. Otherwise, no acute osseous abnormality. No dislocation. Normal variant nonunion of ossification center versus remote left ulnar styloid fracture. SOFT TISSUES: See above. IMPRESSION: 1. Positional artifact versus nondisplaced fractures of the left scaphoid and radial s tyloid (only appreciated on frontal view). Consider further characterization by CT or follow-up radio graphs in 7-14 days following conservative therapy. 2. Otherwise, no acute osseous abnormality. Electronically signed by: Gabe Vyas MD 07/22/2022 11:05 PM REPLENISHER Due to temporary technical issues with the PACS/Fluency reporting system, reports are being signed by the in house radiologists without review as a courtesy to insure prompt reporting. The interpreting radiologist is fully responsible for the content of the report.
== END 2022-07-23 00:26 | disposition home or self-care (01) ==
LOC: ER 21:58
DX: S03.2XXA Dislocation of tooth, initial encounter (principal); S62.015A Nondisplaced fracture of distal pole of navicular [scaphoid] bone of left wrist, initial encounter for closed fracture; S52.515A Nondisplaced fracture of left radial styloid process, initial encounter for closed fracture; E11.22 Type 2 diabetes mellitus with diabetic chronic kidney disease; I12.0 Hypertensive chronic kidney disease with stage 5 chronic kidney disease or end stage renal disease; N18.6 End stage renal disease; Z88.0 Allergy status to penicillin
CPT/HCPCS: 70450; 70486; 72125; 74176; 76377; 99283

== ENCOUNTER 2024-09-03 09:06 | Emergency (ER) | payer OTHER ==
[2024-09-03] MEDS ORDERED: ONDANSETRON 4 MG/2 ML VIAL ONE (09:47)
[2024-09-03] MEDS ORDERED: NA CHLORIDE 0.9% 1,000 ML ONE (09:47)
--- NOTE | 2024-09-03 10:05 | RAD REPORT ---
Procedure: Chest Single View HISTORY: Chest pain COMPARISON: 2018 FINDINGS: The lungs appear clear of acute infiltrate. No significant pleural effusion noted. The heart is normal size. IMPRESSION: No acute abnormality is displayed.
--- NOTE | 2024-09-03 10:07 | RAD REPORT ---
EXAM:Neck Soft Tissue CLINICAL HISTORY: Neck pain. Foreign body FINDINGS: A radiopaque foreign body is not visualized. No gross abnormality of the airway seen. Prevertebral soft tissue unremarkable. Mild spondylosis cervical spine
[2024-09-03 10:08] LABS: Absolute Basophils 0.1 K/uL (0-0.5); Absolute Eosinophils 0.1 K/uL (0-0.5); Absolute Monocytes 0.9 K/uL (0.1-1.3); Absolute Neutrophil 8.2 K/uL (1.8-8.0); Basophils % 0.7 % (0-1.3); Eosinophils % 0.5 % (0-4.4); Hematocrit 42.1 % (36.0-45.0); Hemoglobin 14.9 g/dL (12.0-15.0); Lymphocytes % 9.9 % (15.3-44.8); MCH 29.5 pg (27.0-35.0); MCHC 35.3 g/dL (32.0-36.0); MCV 83.4 fL (80-100); MPV 8.7 fL (7.6-11.3); Monocytes % 8.4 % (3.3-12.3); Neutrophils % 80.5 % (41.7-73.7); Platelets 211 thou/uL (152-406); RBC Red Blood Cell Count 5.05 M/uL (3.86-4.86); Red Cell Distribution Width 14.2 % (12.1-15.2)
[2024-09-03 10:31] LABS: ALT/SGPT 56 U/L (13-56); AST/SGOT 29 U/L (15-37); Alkaline Phosphatase 119 U/L (45-117); Anion Gap 10.3 mEq/L (5.0-15.0); BUN Blood Urea Nitrogen 22 mg/dL (7-18); Bicarbonate 26 mEq/L (21-32); Bilirubin Direct 0.2 mg/dL (0-0.2); Bilirubin Indirect, Calculated 0.7 mg/dL (0.2-0.8); Bilirubin Total 0.9 mg/dL (0.2-1.0); Glomerular Filtration Rate 38 ml/min (=/>90); Glucose Level 169 mg/dL (74-106); Magnesium 2.4 mg/dL (1.6-2.4); NT PRO-BNP 113 pg/mL (<125); Potassium 4.3 mEq/L (3.5-5.1); Sodium Level 140 mEq/L (136-145)
[2024-09-03 10:38] LABS: Troponin High Sensitivity < 3.0 pg/mL (<58.9)
--- NOTE | 2024-09-03 11:09 | EDPHYS ---
Physician Documentation [facility] Name: Tawana Wells Age: 69 yrs Sex: Female : 1955 Arrival Date: 09/03/2024 Time: 09:06 Bed 2 Private MD: ED Physician Lalo Contreras HPI: 09/03 10:56 This 69 yrs old Female presents to ER via Ambulatory with complaints of Sore monalisa Throat, Foreign Body In Throat. 10:56 The patient presents with sore throat, a foreign body sensation in the throat. The monalisa patient describes throat pain as intermittent. Onset: The symptoms/episode began/occurred 4 day(s) ago. Severity of symptoms: At their worst the symptoms were mild, in the emergency department the symptoms are unchanged. Modifying factors: The symptoms are alleviated by nothing, the symptoms are aggravated by foods, swallowing. Associated signs and symptoms: The patient has no apparent associated signs or symptoms. The patient has not experienced similar symptoms in the past. Historical: - Allergies: 09:22 PENICILLINS; ll1 09:22 Latex, Natural Rubber; ll1 - PMHx: 09:22 Diabetes - NIDDM; ESRD; Hyperlipidemia; Hypertension; ll1 - PSHx: 09:22 L4 L5 fusion; Total abdominal hysterectomy; ll1 - Immunization history:: Adult Immunizations up to date. - Infectious Disease History:: Denies. - Social history:: Smoking status: Patient denies any tobacco usage or history of. ROS: 10:57 Constitutional: Negative for fever, chills, and weight loss, Eyes: Negative for injury, monalisa pain, redness, and discharge, Neck: Negative for injury, pain, and swelling, Cardiovascular: Negative for chest pain, palpitations, and edema, Respiratory: Negative for shortness of breath, cough, wheezing, and pleuritic chest pain, Abdomen/GI: Negative for abdominal pain, nausea, vomiting, diarrhea, and constipation, Back: Negative for injury and pain, : Negative for injury, bleeding, discharge, and swelling, MS/Extremity: Negative for injury and deformity, Skin: Negative for injury, rash, and discoloration, Neuro: Negative for headache, weakness, numbness, tingling, and seizure, Psych: Negative for depression, anxiety, suicide ideation, homicidal ideation, and hallucinations, Allergy/Immunology: Negative for hives, rash, and allergies, Endocrine: Negative for neck swelling, polydipsia, polyuria, polyphagia, and marked weight changes, Hematologic/Lymphatic: Negative for swollen nodes, abnormal bleeding, and unusual bruising, 10:57 ENT: Positive for sore throat, 10:57 ENT: Positive for difficulty swallowing, swallows water without difficulty, 10:57 Cardiovascular: Negative for chest pain, edema, orthopnea, palpitations, paroxysmal nocturnal dyspnea, acute changes, 10:57 Abdomen/GI: Negative for abdominal pain, nausea and vomiting, constipation, abdominal cramps, abdominal distension, Exam: 11:00 Constitutional: This is a well developed, well nourished patient who is awake, alert, monalisa and in no acute distress. Head/Face: Normocephalic, atraumatic. Eyes: Pupils equal round and reactive to light, extra-ocular motions intact. Lids and lashes normal. Conjunctiva and sclera are non-icteric and not injected. Cornea within normal limits. Periorbital areas with no swelling, redness, or edema. ENT: Nares patent. No nasal discharge, no septal abnormalities noted. Tympanic membranes are normal and external auditory canals are clear. Oropharynx with no redness, swelling, or masses, exudates, or evidence of obstruction, uvula midline. Mucous membranes moist. Neck: Trachea midline, no thyromegaly or masses palpated, and no cervical lymphadenopathy. Supple, full range of motion without nuchal rigidity, or vertebral point tenderness. No Meningismus. Chest/axilla: Normal chest wall appearance and motion. Nontender with no deformity. No lesions are appreciated. Cardiovascular: Regular rate and rhythm with a normal S1 and S2. No gallops, murmurs, or rubs. Normal PMI, no JVD. No pulse deficits. Respiratory: Lungs have equal breath sounds bilaterally, clear to auscultation and percussion. No rales, rhonchi or wheezes noted. No increased work of breathing, no retractions or nasal flaring. Abdomen/GI: Soft, non-tender, with normal bowel sounds. No distension or tympany. No guarding or rebound. No evidence of tenderness throughout. Back: No spinal tenderness. No costovertebral tenderness. Full range of motion. Skin: Warm, dry with normal turgor. Normal color with no rashes, no lesions, and no evidence of cellulitis. MS/ Extremity: Pulses equal, no cyanosis. Neurovascular intact. Full, normal range of motion., bilateral aka Neuro: Awake and alert, GCS 15, oriented to person, place, time, and situation. Cranial nerves II-XII grossly intact. Motor strength 5/5 in all extremities. Sensory grossly intact. Cerebellar exam normal. Normal gait. Psych: Awake, alert, with orientation to person, place and time. Behavior, mood, and affect are within normal limits. 11:00 ECG was reviewed by the Attending Physician. Vital Signs: 09:22 BP 119 / 82; Pulse 101; Resp 17; Temp 97.3; Pulse Ox 96% ; Weight 84.37 kg; Height 5 ll1 ft. 7 in. ; Pain 04/08; 11:10 BP 107 / 75; Pulse 85; Resp 17; Pulse Ox 97% ; bp 09:22 Body Mass Index 29.13 (84.37 kg, 170.18 cm) ll1 09:22 Pain Scale: Adult ll1 MDM: 09:10 Medical Screening Exam initiated [facility] : Differential diagnosis: gastroesophageal reflux disease. Data reviewed: vital signs, [facility] nurses notes, lab test result(s), EKG, radiologic studies, plain films. Consideration of Admission/Observation Escalation of care including admission/observation considered. I considered the following discharge prescriptions or medication management in the emergency department Medications were administered in the Emergency Department. See MAR. Independent interpretation of the following test(s) in the Emergency Department EKG: See my EKG interpretation above. Test considered but Not performed: Ultrasound no abd usg. Historians other than the Patient: pt well informed. Care significantly affected by the following chronic conditions: Diabetes, Hypertension, Obesity, Chronic Kidney Disease, esrd. Counseling: I had a detailed discussion with the patient and/or guardian regarding the historical points, exam findings, and any diagnostic results supporting the discharge/admit diagnosis, lab results. 09/03 09:11 Order name: Basic Metabolic Panel; Complete Time: 10:51 [facility] 09/03 09:11 Order name: CBC with Diff; Complete Time: 10:51 [facility] 09/03 09:11 Order name: LFT's; Complete Time: 10:51 [facility] 09/03 09:11 Order name: Magnesium; Complete Time: 10:51 [facility] 09/03 09:11 Order name: NT PRO-BNP; Complete Time: 10:51 [facility] 09/03 09:11 Order name: PT-INR 09/03 09:11 Order name: Troponin HS; Complete Time: 10:51 [facility] 09/03 09:11 Order name: XRAY Chest (1 view); Complete Time: 10:51 [facility] 09/03 09:11 Order name: Neck Soft Tissue XRAY; Complete Time: 10:51 [facility] 09/03 09:11 Order name: Cardiac monitoring; Complete Time: 09:41 [facility] 09/03 09:11 Order name: EKG - Nurse/Tech; Complete Time: 10: [facility] 09/03 09:11 Order name: IV Saline Lock; Complete Time: 10: [facility] 09/03 09:11 Order name: Labs collected and sent; Complete Time: 10: [facility] 09/03 09:11 Order name: O2 Per Protocol; Complete Time: 09:41 [facility] 09/03 09:11 Order name: O2 Sat Monitoring; Complete Time: 09:41 [facility] 09/03 09:11 Order name: NPO; Complete Time: 09:46 [facility] 09/03 10:56 Order name: PO challenge; Complete Time: 11:02 [facility] EC:00 Rate is 99 beats/min. Rhythm is regular. QRS Woodward is Normal. MD interval is normal. QRS monalisa interval is normal. QT interval is normal. No Q waves. T waves are Normal. No ST changes noted. Clinical impression: Abnormal EKG without significant change and No evidence of ischemia. Interpreted by me. Reviewed by me. Administered Medications: 10:03 Drug: Ondansetron IVP 4 mg IVP once; over 2 minutes Route: IVP; Site: right wrist; bp 11:12 Follow up: Response: No adverse reaction bp 10:04 Drug: NS 0.9% IV 500 ml 500 ml IV at 1 bolus once; to be given as a bolus over 30 bp minutes Volume: 500 ml; Route: IV; Rate: 1 bolus; Site: right wrist; 11:49 Follow up: IV Status: Completed infusion bp Disposition Summary: 09/03/24 11:08 Discharge Ordered Notes: Location: Home monalisa Problem: new monalisa Symptoms: have improved monalisa Condition: Stable monalisa Diagnosis - Dysphagia monalisa - Dysphagia, unspecified monalisa Followup: monalisa - With: Private Physician - When: 2 - 3 days - Reason: Recheck today's complaints, Continuance of care, Re-evaluation by your physician Followup: monalisa - With: Jairo German MD - When: 2 - 3 days - Reason: Recheck today's complaints, Re-evaluation by your physician Discharge Instructions: - Discharge Summary Sheet monalisa - Dysphagia monalisa - Dysphagia Eating Plan, Bite Size Food [facility] Forms: - Medication Reconciliation Form monalisa - Antibiotic Education monalisa - Prescription Opioid Use monalisa - Patient Portal Instructions monalisa - Leadership Thank You Letter [facility] Prescriptions: - ondansetron 4 mg Oral Tablet,disintegrating - take 1 tablet ORAL route every 8 hours for 5 days prn; 20 tablet; Refills: 0, moanlisa Product Selection Permitted - Pepcid 20 mg Oral tablet - take 1 tablet ORAL route every 12 hours for 21 days; 42 tablet; Refills: 0, monalisa Product Selection Permitted Signatures: Dispatcher [employer] EDMS Lalo Contreras MD MD cha Peltier, Brian, RN RN bp Napoleon Green RN RN ll1 Corrections: (The following items were deleted from the chart) 09:11 09:11 BASIC METABOLIC PANEL+C.LAB.BRZ ordered. EDMS EDMS 09:11 09:11 CBC+H.LAB.BRZ ordered. EDMS EDMS 09:11 09:11 HEPATIC FUNCTION+C.LAB.BRZ ordered. EDMS EDMS 09:11 09:11 MAGNESIUM+C.LAB.BRZ ordered. EDMS EDMS 09:11 09:11 PROBNP+C.LAB.BRZ ordered. EDMS EDMS 09:11 09:11 PROTIME (+INR)+COAG.LAB.BRZ ordered. EDMS EDMS 09:11 09:11 Troponin High Sensitivity+C.LAB.BRZ ordered. EDMS EDMS 09:11 09:11 Chest Single View+RAD.RAD.BRZ ordered. EDMS EDMS 09:12 09:12 Neck Soft Tissue+RAD.RAD.BRZ ordered. EDMS EDMS
--- NOTE | 2024-09-03 11:09 | ER ---
Nurse's Notes [facility] Name: Taawna Wells Age: 69 yrs Sex: Female : 1955 Arrival Date: 09/03/2024 Time: 09:06 Bed 2 Private MD: Diagnosis: Dysphagia;Dysphagia, unspecified Presentation: 09/03 09:22 Chief complaint: Patient states: Ate chicken nuggets from [employer] 3-4 days ago. Barnard ll1 like it got caught in her throat and had a choking episode. Throat pain since. Coronavirus screen: Client denies travel out of the [place] in the last 14 days. At this time, the client does not indicate any symptoms associated with coronavirus-19. Ebola Screen: Patient denies travel to an Ebola-affected area in the 21 days before illness onset. Initial Sepsis Screen: Does the patient meet any 2 criteria? No. Patient's initial sepsis screen is negative. Does the patient have a suspected source of infection? No. Patient's initial sepsis screen is negative. Risk Assessment: Do you want to hurt yourself or someone else? Patient reports no desire to harm self or others. Onset of symptoms was August 31, 2024. 09: Method Of Arrival: Ambulatory ll1 09: Acuity: RAYMOND 3 ll1 Triage Assessment: General: Appears in no apparent distress. Behavior is calm, cooperative, appropriate bp for age. Pain: Complains of pain in neck. EENT: Reports pain when swallowing. Neuro: No deficits noted. Cardiovascular: No deficits noted. Respiratory: No deficits noted. GI: No signs and/or symptoms were reported involving the gastrointestinal system. : No signs and/or symptoms were reported regarding the genitourinary system. Derm: No deficits noted. Musculoskeletal: No deficits noted. Historical: - Allergies: : PENICILLINS; ll1 09: Latex, Natural Rubber; ll1 - PMHx: Diabetes - NIDDM; ESRD; Hyperlipidemia; Hypertension; ll1 - PSHx: L4 L5 fusion; Total abdominal hysterectomy; ll1 - Immunization history:: Adult Immunizations up to date. - Infectious Disease History:: Denies. - Social history:: Smoking status: Patient denies any tobacco usage or history of. Screenin:30 [facility] ED Fall Risk Assessment (Adult) History of falling in the last 3 months, bp including since admission No falls in past 3 months (0 pts) Confusion or Disorientation No (0 pts) Intoxicated or Sedated No (0 pts) Impaired Gait No (0 pts) Mobility Assist Device Used No (0 pt) Altered Elimination No (0 pt) Score/Fall Risk Level 0 - 2 = Low Risk Oriented to surroundings. Abuse screen: Denies threats or abuse. Denies injuries from another. 09:30 Nutritional screening: No deficits noted. Tuberculosis screening: No symptoms or risk bp factors identified. Assessment: 09:30 General: Appears in no apparent distress. comfortable, Behavior is calm, cooperative, bp appropriate for age. Respiratory: Airway is patent Respiratory effort is even, unlabored, Breath sounds are clear bilaterally. EENT: Throat is clear. Vital Signs: 09:22 BP 119 / 82; Pulse 101; Resp 17; Temp 97.3; Pulse Ox 96% ; Weight 84.37 kg; Height 5 ll1 ft. 7 in. ; Pain 10/10; 11:10 BP 107 / 75; Pulse 85; Resp 17; Pulse Ox 97% ; bp 09:22 Body Mass Index 29.13 (84.37 kg, 170.18 cm) ll1 09:22 Pain Scale: Adult ll1 ED Course: 09:09 Patient arrived in ED. im 09:10 Lalo Contreras MD is Attending Physician. monalisa 09:22 Arm band placed on. ll1 09:24 Triage completed. ll1 09:29 Alfa Fay, RN is Primary Nurse. bp 09:30 Patient has correct armband on for positive identification. bp 09:37 XRAY Chest (1 view) In Process Unspecified. EDMS 09:38 Neck Soft Tissue XRAY In Process Unspecified. EDMS 10:04 Initial lab(s) drawn, by nm, sent to lab. EKG done, by ED staff, reviewed by Lalo Contreras MD. Inserted saline lock: 24 gauge in right wrist, using aseptic technique. Blood collected. Flushed with 10 mL NS. 11:11 Jairo German MD is Referral Physician. monalisa 11:48 No provider procedures requiring assistance completed. IV discontinued, intact, bp bleeding controlled, No redness/swelling at site. Pressure dressing applied. Administered Medications: 10:03 Drug: Ondansetron IVP 4 mg IVP once; over 2 minutes Route: IVP; Site: right wrist; bp 11:12 Follow up: Response: No adverse reaction bp 10:04 Drug: NS 0.9% IV 500 ml 500 ml IV at 1 bolus once; to be given as a bolus over 30 bp minutes Volume: 500 ml; Route: IV; Rate: 1 bolus; Site: right wrist; 11:49 Follow up: IV Status: Completed infusion bp Medication: 09:30 VIS not applicable for this client. bp Outcome: 11:08 Discharge ordered by . monalisa 11:48 Discharged to home ambulatory, bp 11:48 Condition: stable 11:48 Discharge instructions given to patient, Instructed on discharge instructions, follow up and referral plans. medication usage, Demonstrated understanding of instructions, follow-up care, medications, Prescriptions given X 2, 11:49 Patient left the ED. bp Signatures: Dispatcher [employer] EDMS Lalo Contreras MD MD cha Peltier, Brian RN RN bp Napoleon Green RN RN ll1 Staci Alas
[2024-09-03 11:12] LABS: PT Prothrombin Time 11.9 SECONDS (10.0-13.0); Protime INR 1.05
[2024-09-03 11:58] VITALS: TEMP 97.3
[2024-09-03 12:04] VITALS: BP 107/75; O2SAT 97
== END 2024-09-03 11:49 | disposition home or self-care (01) ==
LOC: ER 09:06
DX: R13.10 Dysphagia, unspecified (principal); R07.0 Pain in throat; E11.22 Type 2 diabetes mellitus with diabetic chronic kidney disease; I12.0 Hypertensive chronic kidney disease with stage 5 chronic kidney disease or end stage renal disease; N18.6 End stage renal disease
CPT/HCPCS: 96361; 93005; 85025; 80048; 36415; 83735; 85610; 80076; 84484; 83880; 71045; 70360; 96374; 99284; J2405; J7030